=== PATIENT | female | born 1955 | race Caucasian/White ===

== ENCOUNTER → 2022-02-09 09:23 | Outpatient (BNVA) | payer MEDICARE, SELFPAY | PROVIDERS: Family Provider Nurse Practitioner; PCP Nurse Practitioner; Visit Provider Nurse Practitioner | DX: E11.9 Type 2 diabetes mellitus without complications (principal); I25.10 Atherosclerotic heart disease of native coronary artery without angina pectoris; E03.9 Hypothyroidism, unspecified; M06.9 Rheumatoid arthritis, unspecified | CPT/HCPCS: 80053; 83036; 84443; 85025 ==

== ENCOUNTER → 2022-04-24 09:10 | Outpatient (BNVA) | payer MEDICARE, SELFPAY | PROVIDERS: Family Provider Nurse Practitioner; PCP Nurse Practitioner; Visit Provider Anesthesiology Pain Medicine | DX: M47.816 Spondylosis without myelopathy or radiculopathy, lumbar region (principal); M51.16 Intervertebral disc disorders with radiculopathy, lumbar region; M79.605 Pain in left leg; M79.604 Pain in right leg; M25.522 Pain in left elbow; Z87.891 Personal history of nicotine dependence | CPT/HCPCS: 99204 ==

== ENCOUNTER 2022-04-25 01:00 | Outpatient (CLI) | payer MEDICARE, SELFPAY | END 2022-04-25 23:00 | disposition home or self-care (01) | LOC: RAD 05-09 10:14 | PROVIDERS: Family Provider Nurse Practitioner; PCP Nurse Practitioner; Visit Provider Anesthesiology Pain Medicine | DX: I25.10 Atherosclerotic heart disease of native coronary artery without angina pectoris (principal); E11.9 Type 2 diabetes mellitus without complications; Z87.891 Personal history of nicotine dependence; Z79.84 Long term (current) use of oral hypoglycemic drugs; R94.31 Abnormal electrocardiogram [ECG] [EKG] | CPT/HCPCS: 93005; 99204; 99214 ==

== ENCOUNTER → 2022-05-09 12:50 | Outpatient (BNVA) | payer MEDICARE, SELFPAY | PROVIDERS: Family Provider Nurse Practitioner; PCP Nurse Practitioner; Referring Provider Nurse Practitioner; Visit Provider Internal Medicine | DX: M06.9 Rheumatoid arthritis, unspecified (principal); R53.81 Other malaise; M54.9 Dorsalgia, unspecified; Z11.59 Encounter for screening for other viral diseases; Z11.1 Encounter for screening for respiratory tuberculosis; E11.9 Type 2 diabetes mellitus without complications; Z79.84 Long term (current) use of oral hypoglycemic drugs | CPT/HCPCS: 99204 ==

== ENCOUNTER → 2022-05-15 10:42 | Outpatient (BNVA) | payer MEDICARE, SELFPAY | PROVIDERS: Family Provider Nurse Practitioner; PCP Nurse Practitioner; Visit Provider Nurse Practitioner | DX: R68.89 Other general symptoms and signs (principal); R50.9 Fever, unspecified; B34.9 Viral infection, unspecified; Z20.822 Contact with and (suspected) exposure to COVID-19 | CPT/HCPCS: 87400; 87426 ==

== ENCOUNTER → 2022-06-28 11:12 | Outpatient (BNVA) | payer MEDICARE, SELFPAY | PROVIDERS: Family Provider Nurse Practitioner; PCP Nurse Practitioner; Visit Provider Nurse Practitioner | DX: E11.9 Type 2 diabetes mellitus without complications (principal) | CPT/HCPCS: 83036 ==

== ENCOUNTER 2022-08-30 12:19 | Outpatient (CLI) | payer MEDICARE, SELFPAY ==
[2022-08-30 13:27] LABS: Basophils % 0.4 %; Hematocrit 38.9 % (37.0-47.0); Hemoglobin 12.3 g/dL (11.5-15.3); Lymphocytes # 4.3 10^3/uL (0.8-4.8); Lymphocytes % 43.2 %; Mean Corpuscular HGB Conc 31.6 g/dL (30.0-36.0); Mean Corpuscular Hemoglobin 27.8 pg (28.0-34.0); Mean Corpuscular Volume 87.8 fl (81-99); Monocytes # 0.4 10^3/uL (0.2-0.9); Monocytes % 3.7 %; Neutrophils # 5.16 10^3/uL (1.8-7.7); Neutrophils % 52.3 %; Nucleated Red Blood Cells % 0 %; Platelet Count 263 10^3/cmm (130-400); Red Blood Count 4.43 10^6/uL (4.1-5.3); Red Cell Distribution Width 14.6 % (12.1-15.1); White Blood Count 9.9 10^3/uL (4.0-10.0)
[2022-08-30 13:34] LABS: Erythrocyte Sedimentation Rate 36 mm/hr (0-15)
[2022-08-30 13:43] LABS: Alanine Aminotransferase 16 U/L (0-33); Albumin Level 4.1 g/dL (3.5-5.2); Alkaline Phosphatase 68 U/L (35-105); Aspartate Amino Transferase 23 U/L (0-32); Blood Urea Nitrogen 23 mg/dL (8-23); C Reactive Protein 7.4 mg/L (0.0-4.9); Calcium 8.9 mg/dL (8.5-10.5); Carbon Dioxide 24 mmol/L (22-29); Chloride 96 mmol/L (98-107); Globulin 3.3 g/dL (1.3-4.6); Glucose 294 mg/dL (65-115); Osmolality Calculated 293 mOsm/kg (285-295); Sodium 134 mmol/L (136-145); Total Bilirubin 0.2 mg/dL (0.15-1.2); Total Protein 7.4 g/dL (6.6-8.7)
[2022-08-30 13:45] LABS: Anion Gap 18.7 (5-19); Potassium 4.7 mmol/L (3.5-5.1)
== END 2022-08-30 12:20 | disposition home or self-care (01) ==
PROVIDERS: PCP Nurse Practitioner; Visit Provider Internal Medicine
DX: M06.9 Rheumatoid arthritis, unspecified (principal); M19.90 Unspecified osteoarthritis, unspecified site; Z79.899 Other long term (current) drug therapy
CPT/HCPCS: 36415; 80053; 85025; 85651; 86140; 99213

== ENCOUNTER → 2022-09-12 15:11 | Outpatient (BNVA) | payer MEDICARE, SELFPAY | PROVIDERS: PCP Nurse Practitioner; Visit Provider Nurse Practitioner | DX: E11.9 Type 2 diabetes mellitus without complications (principal) | CPT/HCPCS: 83036 ==

== ENCOUNTER → 2022-11-20 12:06 | Outpatient (BNVA) | payer MEDICARE, SELFPAY | PROVIDERS: PCP Nurse Practitioner; Visit Provider Nurse Practitioner | DX: E11.9 Type 2 diabetes mellitus without complications (principal); H44.009 Unspecified purulent endophthalmitis, unspecified eye | CPT/HCPCS: 83036 ==

== ENCOUNTER → 2022-12-19 17:05 | Outpatient (BNVA) | payer MEDICARE, SELFPAY | PROVIDERS: PCP Nurse Practitioner; Visit Provider Internal Medicine | DX: R53.81 Other malaise (principal); M06.9 Rheumatoid arthritis, unspecified | CPT/HCPCS: 80053; 83520; 85025; 85651; 86140; 99214 ==

== ENCOUNTER → 2023-04-25 15:03 | Outpatient (BNVA) | payer MEDICARE, SELFPAY | PROVIDERS: PCP Nurse Practitioner; Visit Provider Nurse Practitioner Family | DX: Z87.81 Personal history of (healed) traumatic fracture (principal); M25.522 Pain in left elbow; E03.9 Hypothyroidism, unspecified; E07.9 Disorder of thyroid, unspecified; E11.9 Type 2 diabetes mellitus without complications; E78.2 Mixed hyperlipidemia; F41.9 Anxiety disorder, unspecified; I10 Essential (primary) hypertension; E55.9 Vitamin D deficiency, unspecified | CPT/HCPCS: 73080; 80061; 81003; 82306; 82607; 82746; 83036; 83721; 83735; 84100; 84439; 84443; 84481; 85025; 87086 ==

== ENCOUNTER 2024-05-27 05:31 | Inpatient (IN) | payer MEDICARE, SELFPAY ==
[2024-05-27] VITALS (39 sets, daily range): BP systolic 87–161; BP diastolic 54–93; PULSE 74–89; RESP 12–25; TEMP 36.6; O2SAT 89–100
[2024-05-27] MEDS: dextrose 5%-sod chloride 0.9% 1,000 ML 75 ML IV (06:16)
--- NOTE | 2024-05-27 06:17 | XRR_ITS ---
PROCEDURE INFORMATION: Exam: XR Right Tibia and Fibula Exam date and time: 05/27/2024 6:53 AM Age: 68 years old Clinical indication: Condition or disease; Other: Heel ulcer TECHNIQUE: Imaging protocol: Radiologic exam of the right tibia and fibula. Views: 2 views. COMPARISON: No relevant prior studies available. FINDINGS: Bones/joints: Mild arthritis right knee. Small enthesophyte from the anterior right tibial spine. Mild arthritis right ankle. Incidentally noted is a moderate right inferior calcaneal spur and a moderate right posterior calcaneal enthesophyte. Otherwise, unremarkable. Soft tissues: Otherwise, unremarkable soft tissues. Vasculature: Large amount of arterial calcification. XR/XR tibia fibula RT 2V [id number] IMPRESSION: No acute findings.
--- NOTE | 2024-05-27 06:17 | XRR_ITS ---
PROCEDURE INFORMATION: Exam: XR Left Tibia and Fibula Exam date and time: 05/27/2024 6:56 AM Age: 68 years old Clinical indication: Condition or disease; Other: Heel ulcer TECHNIQUE: Imaging protocol: Radiologic exam of the left tibia and fibula. Views: 2 views. COMPARISON: No relevant prior studies available. FINDINGS: Bones/joints: Mild arthritis left knee. Severe arthritis left ankle. Incidentally noted are large inferior left calcaneal spur and left posterior calcaneal enthesophyte. Otherwise, unremarkable. Soft tissues: Otherwise, unremarkable. Vasculature: Large amount of arterial calcification. XR/XR tibia fibula LT 2V [id number] IMPRESSION: No acute findings.
--- NOTE | 2024-05-27 06:17 | PM.HP ---
Providers/Chief Complaint Admitting Physician: Bonilla Ivan MD Primary Care Provider: Lety Banks APN Chief Complaint: Hypoglycemia History of Present Illness Billie Govea is a 68 year old female with a past medical history of CVA with residual left-sided weakness, is a Antonino lift, she tells me that she is lost functionality of both legs, has urinary retention, history of recurrent UTIs, reported stool incontinence, she was at [facility] for rehab, but left AGAINST MEDICAL ADVICE yesterday to the care of her son, has type 2 diabetes mellitus, hypertension hyperlipidemia CAD status post 4 stents, atrial fibrillation, hyperlipidemia, hypothyroidism, who presents to [facility] as a transfer from [facility] for concerns for hypoglycemia. Currently patient is alert oriented x 3, following all commands, patient tells me that back in July 2023, she had all large stroke which resulted in her being debilitated, she cannot ambulate without assistance, she has troubles with balance she is lost significant functionality of both lower legs, but significant portion of her weakness was on the left side, with urinary retention issues, issues with bowel incontinence. She has been at [facility] for rehab, however she was not being treated appropriately she tells me, she did not like the care she was receiving so she left AGAINST MEDICAL ADVICE. She was not sent home with any paperwork she tells me nor it with any medications. When she got home she used her home Lantus and gave herself what ever was remaining in the pen that was dosed at as she believes at 70 units, she is not sure how much insulin she was receiving at the rehab facility, she became unresponsive, son called 911, paramedics arrived blood sugar 39, she was given D10 by the time she arrived to the emergency room her blood sugar down to 17, at [facility] she was found to have hypoglycemia, hypokalemia, was given D50 bolus, a total of 3 A, started on D5 normal saline, was given 40 mill colons of potassium, potassium improved to 3.4, blood sugars have improved into the low high 80s to 90s, she was back to alert oriented x 3 she was also found to be hypothermic placed on Young hugger, she feels like she has a UTI as she feels lower pelvic pressure, her white blood cell count is 14.4, hemoglobin 9.5, creatinine 0.57, bicarb is 24, anion gap 13, patient adamantly denies any suicidal ideation, denies any homicidal ideation, denies suicide attempt Review of Systems Const: Denies: fever(s) Card: Denies: chest pain Resp: Denies: dyspnea GI: Denies: abdominal pain Neuro: Reports: weakness in extremities; Denies: headache(s) Medications/Allergies Home Medications Medication Instructions Recorded Confirmed Last Taken Type upadacitinib 15 mg tablet,extended 15 mg PO DAILY 02/09/22 08/20/23 Unknown History release 24 hr (Rinvoq) pantoprazole 40 mg tablet,delayed 40 mg PO DAILY #30 tabs 02/13/22 08/20/23 Unknown Rx release tizanidine 4 mg tablet 4 mg PO BID PRN muscle spasticity 04/24/22 08/20/23 Unknown Rx #60 tabs albuterol sulfate 90 mcg/actuation 2 puff inhalation Q6H PRN 05/15/22 08/20/23 Unknown Rx aerosol inhaler (Ventolin HFA) shortness of breath or wheezing #8.5 grams losartan 50 mg tablet See Rx Instructions .Route 06/05/22 08/20/23 Unknown Rx .COMPLEX #30 tabs hydrocodone 10 mg-acetaminophen 1 tab PO Q8H PRN 06/28/22 08/20/23 Unknown History 325 mg tablet pregabalin 100 mg capsule ea PO 06/28/22 08/20/23 Unknown History furosemide 40 mg tablet 40 mg PO DAILY #30 tabs 08/21/22 08/20/23 Unknown Rx albuterol sulfate 2.5 mg/3 mL 2.5 mg (3 mL) inhalation QID PRN 11/08/22 08/20/23 Unknown Rx (0.083 %) solution for nebulization shortness of breath or wheezing #90 mL levothyroxine 75 mcg capsule 75 mcg PO DAILY #90 caps 11/12/22 08/20/23 Unknown Rx tobramycin 0.3 %-dexamethasone 0.1 1 drp ophthalmic (eye) TID 7 days 11/20/22 08/20/23 Unknown Rx % eye drops,suspension #5 mL escitalopram oxalate 10 mg tablet 10 mg PO DAILY 04/25/23 08/20/23 Unknown History atorvastatin 40 mg tablet (Lipitor) 40 mg PO DAILY #30 tabs 05/06/23 08/20/23 Unknown Rx levothyroxine 88 mcg capsule 88 mcg PO DAILY 30 days #30 caps 05/06/23 08/20/23 Unknown Rx diltiazem HCl 180 mg See Rx Instructions .Route 06/18/23 08/20/23 Unknown Rx capsule,extended release 24 hr, .COMPLEX #30 caps controlled insulin NPH isoph U-100 human 100 See Rx Instructions SUBCUT DAILY 08/20/23 08/20/23 Unknown Rx unit/mL (3 mL) subcutaneous pen #15 mL (Humulin N NPH U-100 Insulin KwikPen) insulin detemir U-100 100 unit/mL 60 unit (0.6 mL) .Route .COMPLEX 08/20/23 08/20/23 Unknown Rx (3 mL) subcutaneous pen (Levemir 30 days #18 mL FlexPen) pen needle, diabetic 32 gauge x #120 ea 08/20/23 08/20/23 Unknown Rx /32 (BD Jocelyn 2nd Gen Pen Needle) apixaban 5 mg tablet (Eliquis) See Rx Instructions .Route 08/23/23 Unknown Rx .COMPLEX #30 tabs prednisone 5 mg tablet See Rx Instructions .Route 10/15/23 Unknown Rx .COMPLEX #60 tabs ropinirole 0.5 mg tablet See Rx Instructions .Route 05/26/24 Unknown Rx .COMPLEX #60 tabs Allergies Allergy/AdvReac Type Severity Reaction Status Date / Time topiramate Allergy Severe ADR-Halluci Verified 08/20/23 13:27 nating Opioids - Morphine Analogues Allergy Intermediate Unresponsiv Verified 08/20/23 13:27 e PFSH Acute PFSH: Medical History Stroke Urinary tract infection Mixed hyperlipidemia Hypothyroidism, unspecified High blood pressure Anxiety Thyroid disease Pain in left elbow History of fracture of arm Rash Debility Rheumatoid arthritis Family History Father Hypertension Brother Heart attack Sister Heart attack Brother Heart attack Mother Lung cancer Social History Smoking and tobacco/nicotine status: former use of tobacco/nicotine Alcohol intake: former Substance/Drug Use: never Vitals/I&O/Wt Last Vital Signs Temp 97.8 F 05/27/24 06:00 Pulse 76 05/27/24 06:00 Resp 19 H 05/27/24 06:00 BP 87/54 05/27/24 06:00 Pulse Ox 99 05/27/24 05:45 O2 Del Method Room Air 05/27/24 06:00 Physical Exam Const: COMMON NORMALS: no acute distress and patient oriented x3 HENMT: COMMON NORMALS: normocephalic HEAD & SCALP: normocephalic Eye: COMMON NORMALS: Equal, round and reactive pupils present OTHER: Left eye corneal clouding, cataract Neck/C-Spine: COMMON NORMALS: no JVD Resp: COMMON NORMALS: normal respiratory effort, No retractions, No use of accessory muscles and clear to auscultation bilaterally AUSCULTATION: clear to auscultation bilaterally Cardio: COMMON NORMALS: regular rate, regular rhythm, S1 normal heart sound present and S2 normal heart sound present RATE: regular rate RHYTHM: regular rhythm HEART SOUNDS: S1 normal heart sound present and S2 normal heart sound present GI: COMMON NORMALS: Normal to inspection, nondistended, normoactive bowel sounds present, Soft to palpation and non-tender Extremity: COMMON NORMALS: no pedal edema Neuro: COMMON NORMALS: patient oriented x3 and CN's II-XII intact bilaterally OTHER: Bilateral lower extremity weakness, Psych: COMMON NORMALS: mental status grossly normal Skin: OTHER: Right heel black eschar with surrounding erythema 3 x 3 cm Left heel black eschar with surrounding erythema 3 x 3 cm, with open diabetic ulcer measuring 1 x 1 cm along medial malleolus Sacral decubitus ulcer present 1 x 2 cm A&P Assessment and plan (1) Hypoglycemia: (2) Hypothermia: (3) CAD (coronary artery disease): (4) Mixed hyperlipidemia: (5) Diabetes mellitus: Qualifiers: Diabetes mellitus type: type 2 Diabetes mellitus rn long term care insulin use: with long-term use Diabetes mellitus complication status: with hyperglycemia Qualified Code(s): E11.65 - Type 2 diabetes mellitus with hyperglycemia; Z79.4 - senior care (current) use of insulin (6) Hypothyroidism, unspecified: Qualifiers: Hypothyroidism type: acquired Qualified Code(s): E03.9 - Hypothyroidism, unspecified (7) Urinary tract infection: (8) Diabetic ulcer of foot associated with diabetes mellitus due to underlying condition, limited to breakdown of skin: (9) Sacral decubitus ulcer: (10) Cellulitis of heel: Plan Hypoglycemia -Secondary to Lantus overdose, unintentional -Blood sugar improved to the 120s -Continue D5 normal saline at 70 cc an hour -Check blood sugars q1 hourly -Hypoglycemia protocol Hypothermia # Resolved Hypokalemia -Status post repletion at [facility] -Recheck CMP Concerns for UTI, obtain UA Type 2 diabetes mellitus, -Will have to call [facility] for dosing of medications History of CVA -Antonino lift dependent -Has lost functionality both legs -Residual left-sided deficits Bilateral heel diabetic ulcers, with black necrotic eschar -Surrounding erythema -Findings concerning for cellulitis, start vancomycin, Zosyn -X-ray of bilateral foot -ESR, CRP, Pro-Seth, x-ray -Consult podiatry in the morning Sacral decubitus ulcer -Continue repositioning Atrial fibrillation CODE STATUS, DNR/DNI, confirmed with patient multiple times SCDs for DVT prophylaxis, patient is unsure when the medication she took last night, if it was Eliquis or not We will have to discuss with case management as patient would like home health care Patient left AMA from [facility] rehab, we will have to call rehab for patient's medication dosing, medication reconciliation, as there is discrepancies on dosing of medications Attestations Medical Necessity Statement*: Patient requires hospitalization, inpatient, greater than 2 midnights, for hypoglycemia, hypothermia, hypokalemia, bilateral diabetic heel ulcers requiring IV antibiotics with findings concerning for with cellulitis Diagnoses Hypoglycemia E16.2 Hypothermia T68.XXXA CAD (coronary artery disease) I25.10 Mixed hyperlipidemia E78.2 Type 2 diabetes mellitus with hyperglycemia, with long-term current use of insulin E11.65; Z79.4 Diabetes mellitus type: type 2 Diabetes mellitus long-term insulin use: with long-term use Diabetes mellitus complication status: with hyperglycemia Acquired hypothyroidism E03.9 Hypothyroidism type: acquired Urinary tract infection N39.0 Diabetic ulcer of foot associated with diabetes mellitus due to underlying condition, limited to breakdown of skin E08.621; L97.501 Sacral decubitus ulcer L89.159 Cellulitis of heel L03.119
[2024-05-27] MEDS: pantoprazole 40 mg SDV IVP (06:18)
--- NOTE | 2024-05-27 06:26 | XRR_ITS ---
PROCEDURE INFORMATION: Exam: XR Chest Exam date and time: 05/27/2024 6:48 AM Age: 68 years old Clinical indication: Shortness of breath; Additional info: SOB TECHNIQUE: Imaging protocol: Radiologic exam of the chest. Views: 1 view. COMPARISON: No relevant prior studies available. FINDINGS: Lungs: Mild, diffuse bilateral pulmonary edema and/or pneumonitis. Pulmonary vascular congestion. Otherwise, unremarkable. Pleural spaces: Unremarkable. No pleural effusion. No pneumothorax. Heart/Mediastinum: Mild cardiomegaly. Diaphragm: Mild elevation of the right hemidiaphragm. Bones/joints: Unremarkable. XR/XR chest 1V portable [id number] IMPRESSION: 1. Mild, diffuse bilateral pulmonary edema and/or pneumonitis. 2. Pulmonary vascular congestion. 3. Mild elevation of the right hemidiaphragm. 4. Mild cardiomegaly.
[2024-05-27] MEDS: HYDROcodone-acetaminophen 10-325 mg Tablet 1 TAB PO (06:30)
[2024-05-27 07:08] LABS: Glucose Point of Care 110 mg/dL (70-110)
--- NOTE | 2024-05-27 07:24 | ECG_ITS ---
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 Measurements Intervals [place] Rate: 85 P: 243 MI: 135 QRS: 15 QRSD: 90 T: 66 QT: 370 QTc: 441 Interpretive Statements JUNCTIONAL RHYTHM NONSPECIFIC T-WAVE ABNORMALITY ABNORMAL RHYTHM ECG No previous ECG available for comparison Electronically Signed On 05-27-2024 21:36:39 TOUR CONSULTANT by Jeff Liang M.D. [id number]
--- NOTE | 2024-05-27 08:11 | ECG_ITS ---
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 Measurements Intervals [place] Rate: 85 P: 250 VT: 122 QRS: 32 QRSD: 109 T: 78 QT: 385 QTc: 459 Interpretive Statements Possible ectopic atrial rhythm NONSPECIFIC T-WAVE ABNORMALITY ABNORMAL RHYTHM ECG Compared to ECG 05/27/2024 07:24:41 No significant changes Electronically Signed On 05-27-2024 21:16:22 MICROBIAL SPECIALIST by Jeff Liang M.D. [email or web address]
[2024-05-27 08:12] LABS: Glucose Point of Care 110 mg/dL (70-110)
[2024-05-27 08:12] LABS: Glucose Point of Care 114 mg/dL (70-110)
[2024-05-27 08:18] LABS: Bilirubin Urine Negative (Negative); Blood Urine Negative (Negative); Glucose Urine UA Negative (Normal); Ketones Urine Negative (Negative); Leukocyte Esterase Urine Trace (Negative); Nitrate Urine Positive (Negative); Protein Urine Trace (Negative); Specific Gravity, Urine 1.009 (1.005-1.030); Urine Appearance Cloudy (CLEAR); Urine Color Yellow (Yellow); pH Urine 7.5 (5-7)
[2024-05-27 08:18] LABS: Basophils # 0.1 10^3/uL (0.0-0.1); Basophils % 0.8 %; Eosinophils # 0.2 10^3/uL (0.0-0.8); Eosinophils % 1.6 %; Hematocrit 28.4 % (36-47); Lymphocytes # 3.2 10^3/uL (0.8-4.8); Lymphocytes % 31.6 %; Mean Corpuscular HGB Conc 29.9 g/dL (30-55); Mean Corpuscular Hemoglobin 26.4 pg (27-33); Mean Corpuscular Volume 88.2 fl (85-98); Mean Platelet Volume 10.6 fL (7.4-10.4); Monocytes # 0.5 10^3/uL (0.2-0.9); Monocytes % 5.4 %; Neutrophils # 6.05 10^3/uL (1.8-7.7); Neutrophils % 60.4 %; Nucleated Red Blood Cells % 0 %; Platelet Count 354 10^3/cmm (157-399); Red Blood Count 3.22 10^6/uL (3.85-5.65); Red Cell Distribution Width 19.8 % (12.1-15.1); White Blood Count 10.01 10^3/uL (3.29-11.43)
[2024-05-27] MEDS: piperacillin-tazobactam 3.375 GM in sodium chloride 0.9% (plus) 50 ML IV ×3 (08:19→22:06)
[2024-05-27 08:21] LABS: Add Urine Microscopic? YES; Bacteria Urine 4+ /hpf; Hyaline Casts Urine 4.11 /lpf; RBC Urine 0-2 /hpf (0-2); Squamous Epithelial Cell Urine 0-5 /hpf (0-5); WBC Urine 21-50 /hpf (0-5)
[2024-05-27 08:23] LABS: Glucose Point of Care 102 mg/dL (70-110)
[2024-05-27 08:35] LABS: Add Urine Culture? Yes
[2024-05-27 08:37] LABS: Erythrocyte Sedimentation Rate 53 mm/hr (0-15)
[2024-05-27 08:38] LABS: Troponin(5th) Baseline 83 ng/L (0-10)
[2024-05-27 08:50] LABS: Estmated Average Glucose 128; Hemoglobin A1C 6.1 % (4.0-6.0)
--- NOTE | 2024-05-27 09:01 | USCV_ITS ---
Billie Govea Age: 68 Gender: F : 1955 Exam Date: 05/27/2024 09:48 Ordering Phys: Irineo Jhaveri MD Technologist: [place] [facility] [place]: BP: 135 / 67 HR: 84 Rhythm: Sinus Technical Quality: Adequate MEASUREMENTS (Male / Female) Normal Values 2D ECHO LV Diastolic Diameter PLAX 4.4 cm 4.2 - 5.9 / 3.9 - 5.3 cm IVS Diastolic Thickness 1.3 cm 0.6 - 1.0 / 0.6 - 0.9 cm IVS Systolic Thickness 2.2 cm LVPW Diastolic Thickness 1.7 cm 0.6 - 1.0 / 0.6 - 0.9 cm LVPW Systolic Thickness 2.2 cm LVOT Diameter 2.0 cm LV Ejection Fraction 2D Teich 62.6 % LV Ejection Fraction MOD 4C 58.0 % LV Ejection Fraction MOD 2C 62.1 % LV Ejection Fraction 2C AL 63.6 % LA Diameter 4.2 cm RA Systolic Volume 4C AL 83.8 ml RA Systolic Volume 4C MOD 79.3 ml Aorta at Sinotubular Diameter 3.9 cm IVC Diameter 2.5 cm M-MODE LA Ao Ratio MM 1.1 AV Cusp Separation MM 2.0 cm DOPPLER AV Peak Velocity 176.3 cm/s LVOT Peak Velocity 91.0 cm/s AV Area Cont Eq vti 1.8 cm squared AV Area Cont Eq pk 1.7 cm squared MV Peak Velocity 139.0 cm/s MV Area PHT 2.8 cm squared Mitral E to A Ratio 1.4 TV Peak Velocity 272.5 cm/s TR Peak Velocity 334.0 cm/s TR Peak Gradient 44.6 mmHg TV Peak E Velocity 146.0 cm/s PV Peak Velocity 98.0 cm/s FINDINGS Left Ventricle Normal left ventricular size and systolic function, EF 60%.. No regional wall motion abnormalities. Right Ventricle The right ventricle is normal in size and function. Right Atrium Moderately increased right atrial size. Left Atrium Moderately increased left atrial size. Mitral Valve Moderate mitral annular calcification. Aortic Valve Thickened aortic valve. Tricuspid Valve Trace tricuspid valve regurgitation. Pulmonic Valve Pulmonic valve not well visualized. Pericardium Normal pericardium without effusion. Aorta Normal ascending aorta dimension. IVC Inferior vena cava not visualized. CONCLUSIONS Normal left ventricular size and systolic function, EF 60%.. No regional wall motion abnormalities. Moderate biatrial enlargementModerate mitral annular calcification. Thickened aortic valve. Trace tricuspid valve regurgitation. Estimated pulmonary artery peak systolic pressure 48 mmHg-could be misleading because of poor Doppler signals There is no pericardial effusion. There are no intracardiac masses. Technically difficult study because of poor apical windows Dr Jeff Liang MD FAC (Electronically Signed) Final Date: 27 May 2024 22:15 S
[2024-05-27 09:02] LABS: Free T4 Free Thyroxine 1.08 ng/dL (0.82-1.77); Procalcitonin 0.14 ng/mL (0-0.5); T3 Free 1.8 PG/ML (2.0-4.4); Thyroid Stimulating Hormone 3.97 uIU/mL (0.27-4.20)
--- NOTE | 2024-05-27 09:14 | PM.PN ---
Subjective Subjective: Admitted overnight. Patient today morning examination awake and alert. Complaining of pain in her back. States he usually takes Valium for pain. Denies any nausea counting, headache. Vitals/I&O/Wt Last Vital Signs Temp 97.8 F 05/27/24 08:18 Pulse 86 05/27/24 08:00 Resp 21 H 05/27/24 08:00 BP 137/93 05/27/24 07:45 Pulse Ox 98 05/27/24 08:00 O2 Del Method Room Air 05/27/24 06:00 05/26/24 05/27/24 05/27/24 22:59 06:59 14:59 Intake Total 385 / 385 Balance 385 / 385 Weight last 48 hrs Weight 91.807 kg Physical Exam Const: COMMON NORMALS: no acute distress and patient oriented x3 HENMT: COMMON NORMALS: normocephalic HEAD & SCALP: normocephalic Eye: COMMON NORMALS: Equal, round and reactive pupils present PUPIL: Yes Equal, round and reactive pupils present OTHER: Left eye corneal clouding, cataract Neck/C-Spine: COMMON NORMALS: no JVD Resp: COMMON NORMALS: normal respiratory effort, No retractions, No use of accessory muscles and clear to auscultation bilaterally AUSCULTATION: clear to auscultation bilaterally Cardio: COMMON NORMALS: no JVD, regular rate, regular rhythm, S1 normal heart sound present and S2 normal heart sound present RATE: regular rate RHYTHM: regular rhythm HEART SOUNDS: S1 normal heart sound present and S2 normal heart sound present GI: COMMON NORMALS: Normal to inspection, nondistended, normoactive bowel sounds present, Soft to palpation and non-tender PALPATION: Yes Soft to palpation Extremity: COMMON NORMALS: no pedal edema Neuro: COMMON NORMALS: patient oriented x3 and CN's II-XII intact bilaterally OTHER: Bilateral lower extremity weakness, Psych: COMMON NORMALS: mental status grossly normal Skin: OTHER: Urinary Catheter Management: Tong: Cath Placed During This Visit: yes Urinary Catheter Date of Insertion: 05/27/24 Urinary Catheter Time of Insertion: 08:07 Data 05/27/24 07:55 05/27/24 07:55 Micro: Microbiology 05/27/24 07:55 Blood Culture - Preliminary Blood SPECIMEN COLLECTED 05/27/24 08:03 Blood Culture - Preliminary Blood SPECIMEN COLLECTED A&P Assessment and plan (1) Hypoglycemia: (2) Diabetes mellitus: Qualifiers: Diabetes mellitus type: type 2 Diabetes mellitus penitentiary insulin use: with intermediate frame tender use Diabetes mellitus complication status: with hyperglycemia Qualified Code(s): E11.65 - Type 2 diabetes mellitus with hyperglycemia; 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 Continue with D5 NS at 75 cc/h. Monitor blood sugars every 2 hour. Switch to regular diet. If blood sugars remain stable we will plan to discontinue IV fluids within next 24 hours. UTI: Appreciate UA. Follow-up urine culture, blood culture. Add bacterial antigen. For now continue with IV Zosyn. Bilateral heel ulcers with black eschar: Will consult podiatry for further recommendations. ESR CRP mildly elevated. CT of the heel to rule out underlying collection. Continue with Zosyn as above. Continue with vancomycin. Check MRSA swab. If negative will discontinue vancomycin. Type 2 diabetes mellitus: Currently having hypoglycemia. Appreciate A1c. Hold off on antidiabetic medications for now. Sacral decubitus ulcer: Frequent repositioning. Will request medical records from the rehab so that can start on medications at home dose. Back pain: Patient states chronic. States she recently had a fall. At baseline she seems to be bedbound for stroke. Continue with IV Dilaudid 0.4 every 6 hours as needed. Hold off on Valium until confirmed from shelter. [place] 5 mg every [address] lumbar spine. Continue care at ICU. Will restart home medications when list available. CODE STATUS, DNR/DNI, confirmed with patient multiple times Eliquis for DVT prophylaxis Protonix for PUD prophylaxis. Attestations Medical Necessity Statement*: Requires further hospitalization for management of hypoglycemia in setting of accidental overdose of Lantus, bilateral heel ulcer with eschar, UTI Diagnoses Hypoglycemia E16.2 Type 2 diabetes mellitus with hyperglycemia, with long-term current use of insulin E11.65; Z79.4 Diabetes mellitus type: type 2 Diabetes mellitus intermediate frame tender insulin use: with intermediate frame tender use Diabetes mellitus complication status: with hyperglycemia Acquired hypothyroidism E03.9 Hypothyroidism type: acquired Urinary tract infection N39.0 Diabetic ulcer of foot associated with diabetes mellitus due to underlying condition, limited to breakdown of skin E08.621; L97.501 Sacral decubitus ulcer L89.159 Cellulitis of heel L03.119 CAD (coronary artery disease) I25.10 Mixed hyperlipidemia E78.2 Hypothermia T68.XXXA
[2024-05-27 09:16] LABS: Alanine Aminotransferase < 5 U/L (0-33); Alkaline Phosphatase 93 U/L (35-105); Anion Gap 15.4 (5-19); Aspartate Amino Transferase 10 U/L (0-32); Blood Urea Nitrogen 13 mg/dL (8-23); C Reactive Protein 57.6 mg/L (0.0-4.9); Calcium 8.7 mg/dL (8.5-10.5); Carbon Dioxide 24 mmol/L (22-29); Chloride 102 mmol/L (98-107); Chol HDL Ratio 2.43 mg/dL (0.0-4.40); Cholesterol 136 mg/dL (0-200); Creatine Phosphokinase 36 U/L (26-192); Creatinine Clr Calc Pharmacy 74.4347; Globulin 3.8 g/dL (1.3-4.6); Glucose 110 mg/dL (65-115); HDL Cholesterol 56 mg/dL (60-100); LDL Cholesterol Calculated 61 mg/dL (50-129); LDL HDL Ratio 1.09 RATIO (0.00-3.22); Magnesium 1.5 mg/dL (1.7-2.3); Osmolality Calculated 287 mOsm/kg (285-295); Phosphorus 3.9 mg/dL (2.5-4.5); Potassium 3.4 mmol/L (3.5-5.1); Sodium 138 mmol/L (136-145); Total Bilirubin 0.4 mg/dL (0.15-1.2); Total Protein 6.8 g/dL (6.6-8.7); Triglycerides 93 mg/dL (0-150)
[2024-05-27 09:19] LABS: Glucose Point of Care 168 mg/dL (70-110)
--- NOTE | 2024-05-27 09:19 | CTR_ITS ---
PROCEDURE INFORMATION: Exam: CT Left Lower Extremity, Foot Exam date and time: 05/27/2024 2:58 PM Age: 68 years old Clinical indication: Condition or disease; Other: Heal ulcer TECHNIQUE: Imaging protocol: CT of the left lower extremity without contrast was performed. Exam focused on the foot. Radiation optimization: All CT scans at this facility use at least one of these dose optimization techniques: automated exposure control; mA and/or kV adjustment per patient size (includes targeted exams where dose is matched to clinical indication); or iterative reconstruction. COMPARISON: CR XR tibia fibula LT 2V [id number] 05/27/2024 6:56 AM RADIATION DOSE METRICS: Total DLP (mGy-cm): 318.27 FINDINGS: Bones/joints: Diffuse heterogenous appearance of the bone especially about the mid and hindfoot osseous structures. Linear lucency through the medial cuneiform which may represent subtle nondisplaced fracture versus nutrient vessel. Best seen on image 27 of series 16. No definite additional acute displaced fractures. Plantar calcaneal dorsal spurring. No malalignment. Soft tissues: Soft tissue swelling involving essentially entire fluid most prominent about the mid hindfoot. Please correlate with physical exam for definite area ulceration, however there appears to be the soft tissue irregularity the soft tissues heel Vasculature: Vascular calcifications. Other findings: No focal drainable abscess. CT/CT foot LT wo con* [id number] IMPRESSION: 1. Please correlate physical exam for area soft tissue ulceration, however there does appear to be some cutaneous irregularity at the heel. 2. Diffuse soft tissue swelling of the foot without focal drainable abscess. This may relate to cellulitic changes. 3. Diffuse heterogenous appearance of the bone marrow most prominent at the mid and hindfoot which may impart metabolic disease versus chronic osteomyelitis versus degenerative changes.
--- NOTE | 2024-05-27 09:19 | CTR_ITS ---
PROCEDURE INFORMATION: Exam: CT Right Lower Extremity, Foot Exam date and time: 05/27/2024 2:58 PM Age: 68 years old Clinical indication: Condition or disease; Other: Heal ulcer TECHNIQUE: Imaging protocol: CT of the right lower extremity without contrast was performed. Exam focused on the foot. Radiation optimization: All CT scans at this facility use at least one of these dose optimization techniques: automated exposure control; mA and/or kV adjustment per patient size (includes targeted exams where dose is matched to clinical indication); or iterative reconstruction. COMPARISON: CR XR tibia fibula RT 2V [id number] 05/27/2024 6:53 AM RADIATION DOSE METRICS: Total DLP (mGy-cm): 318.27 FINDINGS: Bones/joints: Diffuse heterogenous appearance of the bone marrow mainly at the forefoot and midfoot. There area of cortical dehiscence involving the cuboid seen on image 31 of series 14 and image 48 of series 12 which may be related to acute on chronic osteomyelitis. Midfoot and hindfoot arthrosis. Plantar calcaneal spurring. Soft tissues: Diffuse soft tissue swelling without focal drainable abscess. Cutaneous irregularity at the heel which may be related to ulcer and will need correlation with physical examination. Vasculature: Vascular calcifications. CT/CT foot RT wo con* [id number] IMPRESSION: 1. Area of cortical irregularity involving the lateral aspect of the cuboid bone which may relate to underlying fracture versus acute on chronic osteomyelitis changes. 2. Additional diffuse heterogenous changes of the bone marrow of the mid and hindfoot which may be related to degenerative changes versus chronic osteomyelitis versus metabolic disease. 3. Diffuse soft tissue swelling of the foot without focal drainable abscess. This may relate to overlying cellulitic changes. 4. Cutaneous irregularity at the heel, correlate with physical exam for ulcer.
[2024-05-27 09:33] LABS: Iron 28 ug/dL (37-145); Percent Saturation 15.2 % (20-50); Total Iron Binding Capacity 184 mcg/dl; Unsaturated Iron Binding 156 ug/dL (112-347)
[2024-05-27 09:50] LABS: Vitamin B12 290 pg/mL (232-1245)
--- NOTE | 2024-05-27 09:51 | PC.PHAR ---
Addendum entered by Judith Campos 05/27/24 10:57: Pts' bag of medications does not [facility]. Pt has an rx bottle of Lisinopril 20mg daily last filled 05/26/24 30ds and Lantus solostar pen last filled 03/11/24 which are NOT on her med list from the prison. They say she did leave AMA and think she compiled a few meds she had at home and is using them so she does not have to go back. [facility] med list is more correct than what pt says she is taking. Original Note: We hve pt med list and have gone through home medications in the room. Went over medications with pt and have faxed [facility] [phone]. Pt and facility state she left AMA but they will fax their current med list.
[2024-05-27] MEDS: HYDROcodone-acetaminophen 5-325 mg Tablet 1 TAB PO ×2 (09:54→18:10)
[2024-05-27] MEDS: vancomycin 1,500 MG/300 ML PIGGYBACK 200 MG IV (09:55)
[2024-05-27 10:15] LABS: Glucose Point of Care 227 mg/dL (70-110)
[2024-05-27 11:04] LABS: Glucose Point of Care 179 mg/dL (70-110)
[2024-05-27] MEDS: escitalopram 10 mg Tablet 15 MG PO (12:12)
[2024-05-27] MEDS: mirtazapine 15 mg Tablet 7.5 MG PO (12:12)
--- NOTE | 2024-05-27 12:16 | CTR_ITS ---
PROCEDURE INFORMATION: Exam: CT Lumbar Spine Without Contrast Exam date and time: 05/27/2024 3:03 PM Age: 68 years old Clinical indication: Injury or trauma; Fall; Blunt trauma (contusions or hematomas); Additional info: Back pain post fall TECHNIQUE: Imaging protocol: Computed tomography of the lumbar spine without contrast. Radiation optimization: All CT scans at this facility use at least one of these dose optimization techniques: automated exposure control; mA and/or kV adjustment per patient size (includes targeted exams where dose is matched to clinical indication); or iterative reconstruction. COMPARISON: No relevant prior studies available. RADIATION DOSE METRICS: Total DLP (mGy-cm): 970.3 FINDINGS: Bones/joints: No fracture. Mild scoliosis convex to the left. 5 mm left lateral subluxation of L3 on L4. Severe L3-L4 and L4-L5 degenerative disc disease. Minimal or mild degenerative disc disease at all other levels. Mild bilateral facet osteoarthritis at the L4-L5 level. Moderate bilateral facet osteoarthritis at the L5-S1 level. Large chronic left paracentral disc herniation at the L4-L5 level. Much smaller chronic posterior disc herniations at the L2-L3 and L3-L4 levels. No obvious acute disc herniation, but evaluation for such is quite limited on a noncontrast CT. Diffuse disc bulge at most levels. Mild spinal stenosis at the L1-L2 level and L2-L3 level. Severe spinal stenosis at the L 3-4 and L4-L5 levels. Mild neural foraminal narrowing on the left at the L3-L4 level. Moderate neural foraminal narrowing on the right at the L3-L4 level. Moderate to severe bilateral neural foraminal narrowing at the L4-L5 level. Mild-moderate neural foraminal narrowing on the left at the L5-S1 level. Otherwise, unremarkable. Pleural spaces: Tiny left pleural effusion. Adrenal glands: 1.5 cm left adrenal angiomyolipoma. Kidneys and ureters: Small nonobstructing renal calculi bilaterally. Prominent left ureter. Question left obstructive uropathy at the level of the distal left ureter off the field of view. Possible left urinary tract infection. Correlate clinically. Vasculature: Large amount of arterial calcification. Soft tissues: Otherwise, unremarkable soft tissues. CT/CT lumbar spine wo con* [id number] IMPRESSION: 1. No acute lumbar spine findings. 2. Prominent left ureter. Question left obstructive uropathy at the level of the distal left ureter off the field of view. Possible left urinary tract infection. Correlate clinically. 3. Additional details as above.
--- NOTE | 2024-05-27 12:26 | ECG_ITS ---
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 Measurements Intervals [place] Rate: 87 P: 224 AL: 114 QRS: 43 QRSD: 88 T: 66 QT: 383 QTc: 461 Interpretive Statements possible ectopic atrial rhythm. 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 [email or web address]
[2024-05-27] MEDS: HYDROmorphone 1 mg/mL INJ 1 mL 0.4 MG IVP ×2 (12:35→20:55)
[2024-05-27 12:51] LABS: MRSA PCR OZH (swab) MRSA Detected (Not Detecte)
[2024-05-27 13:12] LABS: Glucose Point of Care 160 mg/dL (70-110)
[2024-05-27 14:43] LABS: Troponin 5 6HR 83.61 ng/L (0-10); Troponin 5 6HR Delta 0.61 ng/L (0-12)
[2024-05-27 15:25] LABS: Glucose Point of Care 175 mg/dL (70-110)
--- NOTE | 2024-05-27 16:09 | PHA.VACGOAL ---
Vancomycin Goal - Goal Vancomycin Goal:: 10-15 mg/L Vancomycin Indication:: SSTI - Therapy Current therapy:: Pip/Tazo Day of therpy:: Day [1]of [] . Actual body weight (kg): 91.807 kg - Data Labs: WBC 10.01 10^3/uL (3.29-11.43) 05/27/24 07:55 RBC 3.22 10^6/uL (3.85-5.65) L 05/27/24 07:55 Hgb 8.50 g/dL (11.27-16.99) L 05/27/24 07:55 Hct 28.4 % (36-47) L 05/27/24 07:55 MCV 88.2 fl (85-98) 05/27/24 07:55 MCH 26.4 pg (27-33) L 05/27/24 07:55 MCHC 29.9 g/dL (30-55) L 05/27/24 07:55 RDW 19.8 % (12.1-15.1) H 05/27/24 07:55 Sodium 138 mmol/L (136-145) 05/27/24 07:55 Potassium 3.4 mmol/L (3.5-5.1) L 05/27/24 07:55 Chloride 102 mmol/L (98-107) 05/27/24 07:55 Carbon Dioxide 24 mmol/L (22-29) 05/27/24 07:55 Anion Gap 15.4 (5-19) 05/27/24 07:55 BUN 13 mg/dL (8-23) 05/27/24 07:55 Creatinine 0.6 mg/dL (0.5-0.9) 05/27/24 07:55 GFR Calculation 100.0 mL/min (90-130) 05/27/24 07:55 Treatment plan:: new consult Regimen:: New start vancomycin for cellulitis of the foot. 1500 mg load dose ordered. Started on 1250 mg q12h maintenance dose.
--- NOTE | 2024-05-27 16:10 | CTR_ITS ---
PROCEDURE INFORMATION: Exam: CT Abdomen And Pelvis Without Contrast Exam date and time: 05/27/2024 5:56 PM Age: 68 years old Clinical indication: Abdominal pain; Flank; Left; Additional info: Possible left uretral stone TECHNIQUE: Imaging protocol: Computed tomography of the abdomen and pelvis without contrast. Radiation optimization: All CT scans at this facility use at least one of these dose optimization techniques: automated exposure control; mA and/or kV adjustment per patient size (includes targeted exams where dose is matched to clinical indication); or iterative reconstruction. COMPARISON: CT lumbar spine wo con* [id number] 05/27/2024 3:03 PM RADIATION DOSE METRICS: Total DLP (mGy-cm): 938.13 FINDINGS: Lungs: Bibasilar atelectasis. Liver: Normal. No mass. Gallbladder and biliary ducts: Normal. No calcified stones. No ductal dilation. Pancreas: Normal. No ductal dilation. Spleen: Normal. No splenomegaly. Adrenal glands: Normal. No mass. Kidneys and ureters: Bilateral nonobstructing renal calculi. Nonspecific mild bilateral hydroureter greater on the left. There is a subtle calculus in the region of the left distal ureter just as it enters the urinary bladder seen on image 183 of series 3 and image 97 of series 6. Stomach and bowel: Moderate amount of retained stool in the colon, constipation. No high-grade mechanical bowel obstruction. There is some distal rectal wall thickening. Appendix: No secondary signs of acute appendicitis. Intraperitoneal space: There is a small amount of free fluid in the pelvis. Vasculature: Unremarkable. No abdominal aortic aneurysm. Lymph nodes: Unremarkable. No enlarged lymph nodes. Urinary bladder: The urinary bladder is underdistended around a Tong catheter. Diffuse urinary bladder wall thickening with significant perivesicular inflammatory changes. Reproductive: Unremarkable as visualized. Extraperitoneal space: There is some presacral fluid. Bones/joints: Degenerative changes of the visualized spine. Right proximal femur intramedullary nail. Soft tissues: Postsurgical changes of the ventral midline abdominal wall. CT/CT kidney stone [id number] IMPRESSION: 1. Marked urinary bladder wall thickening with perivesicular inflammatory changes. Correlate with urinalysis to exclude cystitis. Mild bilateral hydroureter is likely secondary to inflammatory changes in the urinary bladder rather than obstructing calculus. There is also a small calculus in the distal left ureter however is likely nonobstructing. 2. Additional bilateral nonobstructing renal calculi are also present. 3. Rectal wall thickening with some presacral fluid correlate for proctitis. 4. Small amount of free fluid in the pelvis. 5. Moderate constipation.
--- NOTE | 2024-05-27 16:57 | P.CONIM_ITS ---
Providers/Reason For Consult 2 Consulting Physician/Specialty*: Dr. Neville Zhang DPM/ Podiatry Reason for Consult*: Bilateral heel wounds Attending Physician: Irineo Jhaveri MD Primary Care Provider: Lety Banks APN History of Present Illness History of Present Illness Billie Govea is a 68 year old female with past medical history of CVA and residual left-sided weakness, uses Antonino lift who is currently admitted to the ICU after hypoglycemic event. She is a transfer from [facility], [place]. Upon workup she was found to have decubitus heel ulceration bilaterally. Concern for surrounding cellulitis to left heel decubitus. Podiatry was consulted to provide treatment recommendations and to determine if debridement is warranted. Patient states that the heel wounds have been present for some time now. She states that she has seen a telephone sales agent before in [place]. She states that they have been dressing the wounds with Hydrofera Blue up to this point. Review of Systems 2 General: Reports: 10 or more systems reviewed and unremarkable except in HPI and below Const: Denies: fever(s), chills, body aches or change in appetite Eyes: Denies: change in vision or blurry vision Card: Denies: chest pain, palpitations or irregular heart rhythm Resp: Denies: dyspnea GI: Denies: abdominal pain, nausea, vomiting or diarrhea Musc: Reports: joint stiffness Skin/Breast: Reports: non-healing lesions and lesions Neuro: Reports: numbness in extremities Medications/Allergies Home Medications Medication Instructions Recorded Confirmed Last Taken Type hydrocodone 10 mg-acetaminophen 1 tab PO Q8H PRN Pain 06/28/22 05/27/24 Unknown History 325 mg tablet pregabalin 100 mg capsule 100 mg PO BID 06/28/22 05/27/24 Unknown History escitalopram oxalate 10 mg tablet 15 mg PO QAM 04/25/23 05/27/24 Unknown History insulin NPH isoph U-100 human 100 See Rx Instructions SUBCUT DAILY 08/20/23 05/27/24 Unknown Rx unit/mL (3 mL) subcutaneous pen #15 mL (Humulin N NPH U-100 Insulin KwikPen) pen needle, diabetic 32 gauge x #120 ea 08/20/23 05/27/24 Unknown Rx (BD Jocelyn 2nd Gen Pen Needle) acetaminophen 325 mg tablet See Rx Instructions .Route 05/27/24 05/27/24 Unknown History .COMPLEX PRN pain or elevated temp apixaban 5 mg tablet (Eliquis) 5 mg PO DAILY 05/27/24 05/27/24 05/26/24 History aspirin 81 mg tablet,delayed 81 mg PO DAILY 05/27/24 05/27/24 05/26/24 History release atorvastatin 40 mg tablet (Lipitor) 40 mg PO BEDTIME 05/27/24 05/27/24 Unknown History bisacodyl 10 mg rectal suppository 10 mg LA Q12H PRN Constipation 05/27/24 05/27/24 Unknown History (Dulcolax (bisacodyl)) collagenase clostridium histo. 250 See Rx Instructions .Route .COMPLEX 05/27/24 05/27/24 Unknown History unit/gram topical ointment (Santyl) dextran 70-hypromellose eye drops 1 drp ophthalmic (eye) Q4H PRN Dry 05/27/24 05/27/24 Unknown History in a dropperette (Artificial Tears Eyes (PF) drops in a dropperette) diltiazem HCl 180 mg 180 mg PO DAILY 05/27/24 05/27/24 Unknown History capsule,extended release 24 hr, controlled glucagon HCl 1 mg solution for 1 mg SUBCUT PRN PRN low blood sugar 05/27/24 05/27/24 Unknown History injection (Glucagon (HCl) Emergency Kit) insulin lispro 100 unit/mL See Rx Instructions .Route .COMPLEX 05/27/24 05/27/24 Unknown History subcutaneous pen levothyroxine 175 mcg tablet 175 mcg PO QAM 05/27/24 05/27/24 Unknown History loperamide 2 mg tablet See Rx Instructions .Route 05/27/24 05/27/24 Unknown History .COMPLEX PRN Diarrhea magnesium hydroxide 400 mg/5 mL 30 ml PO Q12H PRN Constipation 05/27/24 05/27/24 Unknown History oral suspension (Milk of Magnesia) mirtazapine 7.5 mg tablet 7.5 mg PO QAM 05/27/24 05/27/24 Unknown History qosazxlb-rghseiyiv-gxpmwnxq 3.5 1 drp ophthalmic (eye) BEDTIME 05/27/24 05/27/24 Unknown History mg/mL-10,000 unit/mL-0.1% eye drops pantoprazole 40 mg tablet,delayed 40 mg PO BID 05/27/24 05/27/24 Unknown History release prednisolone acetate 1 % eye See Rx Instructions .Route .COMPLEX 05/27/24 05/27/24 Unknown History drops,suspension prednisone 10 mg tablet 10 mg PO DAILY RA 05/27/24 05/27/24 Unknown History ropinirole 0.5 mg tablet 0.5 mg PO BID restless leg syndrom 05/27/24 05/27/24 Unknown History triamcinolone acetonide 0.5 % 1 applic topical PRN PRN Skin 05/27/24 05/27/24 Unknown History topical cream Irritation Allergies Allergy/AdvReac Type Severity Reaction Status Date / Time topiramate Allergy Severe ADR-Halluci Verified 08/20/23 13:27 nating Opioids - Morphine Analogues Allergy Intermediate Unresponsiv Verified 08/20/23 13:27 e Current Medications Generic Name Dose Route Start Last Admin Trade Name Freq PRN Reason Stop Dose Admin Hydrocodone Bitart/Acetaminophen 1 tab 05/27/24 09:48 05/27/24 09:54 Hydrocodone-Acetaminophen 5-325 Mg Tablet PO 1 tab Q4H PRN Administration MODERATE PAIN Collagenase 1 applic 05/27/24 12:00 05/27/24 15:44 Collagenase Oint 30 Gm TOPICAL Not Given DAILY LANDEN Escitalopram Oxalate 15 mg 05/27/24 11:55 05/27/24 12:12 Escitalopram 10 Mg Tablet PO 15 mg QAM LANDEN Administration Hydromorphone HCl 0.4 mg 05/27/24 12:15 05/27/24 12:35 Hydromorphone 1 Mg/Ml Inj 1 Ml IVP 0.4 mg Q6H PRN Administration PAIN Dextrose/Sodium Chloride 1,000 mls @ 50 mls/hr 05/27/24 06:00 05/27/24 15:30 Dextrose 5%-Sod Chloride 0.9% IV 50 mls/hr .Q20H LANDEN Infusion Piperacillin Sod/Tazobactam 50 mls @ 12.5 mls/hr 05/27/24 14:30 05/27/24 15:39 Sod 3.375 gm/ Sodium Chloride IV 12.5 mls/hr Q8H LANDEN Administration Mirtazapine 7.5 mg 05/27/24 12:00 05/27/24 12:12 Mirtazapine 15 Mg Tablet PO 7.5 mg QAM LANDEN Administration PFSH Acute 2 PFSH: Medical History (Updated 05/27/24 @ 17:27 by Neville Zhang DPM) Atherosclerotic heart disease of [place] coronary artery without angina pectoris Cellulitis, unspecified Depression Stroke Urinary tract infection Mixed hyperlipidemia Hypothyroidism, unspecified High blood pressure Anxiety Thyroid disease Pain in left elbow History of fracture of arm Rash Debility Rheumatoid arthritis Family History Father Hypertension Brother Heart attack Sister Heart attack Brother Heart attack Mother Lung cancer Social History Smoking and tobacco/nicotine status: former use of tobacco/nicotine Alcohol intake: former Substance/Drug Use: never Vitals/I&O/Wt Last Vital Signs Temp 97.8 F 05/27/24 08:18 Pulse 87 05/27/24 14:00 Resp 17 05/27/24 14:00 BP 142/69 05/27/24 14:00 Pulse Ox 96 05/27/24 12:35 O2 Del Method Room Air 05/27/24 06:00 05/27/24 05/27/24 05/27/24 06:59 14:59 22:59 Intake Total 1045 / 1045 692.5 / 1737.5 Output Total 800 / 800 Balance 245 / 245 692.5 / 937.5 Weight last 48 hrs Weight 202 lb 6.4 oz Physical Exam 2 Narrative: GENERAL: A&O x 3 VASCULAR: DP/PT pulses diminished +1 with delayed capillary refill DERMATOLOGICAL: Unstageable decubitus heel ulcerations bilateral heels. Mild erythema surrounding decubitus heel ulceration to left heel. Lateral malleolus wound, ischemic in nature with punched-out margins, 100% fibrotic base no active drainage, negative probe to bone. No proximal streaking. No underlying fluctuance or signs of deep space infection. MUSCULOSKELETAL: Pain to palpation of periwound area to lateral malleolar wound left ankle NEUROLOGICAL: Neurological sensation to the affected foot and ankle is diminished through L4-S1 dermatomes IMAGING: CT scan of bilateral feet were personally interpreted by me which failed to demonstrate any subcutaneous emphysema or drainable accumulation of abscess. No evidence of acute osteomyelitis Urinary Catheter Management: Tong: Cath Placed During This Visit: yes Urinary Catheter Date of Insertion: 05/27/24 Urinary Catheter Time of Insertion: 08:07 Data 05/27/24 07:55 05/27/24 07:55 Micro: Microbiology 05/27/24 07:50 Bacterial Antigens - Final Urine Kidney 05/27/24 07:55 Blood Culture - Preliminary Blood SPECIMEN COLLECTED 05/27/24 08:03 Blood Culture - Preliminary Blood SPECIMEN COLLECTED A&P Assessment and plan (1) Pressure ulcer, heel, left, unstageable: (2) Pressure ulcer of right heel, unstageable: (3) Cellulitis of heel: (4) Ischemic ulcer of ankle: (5) Diabetes mellitus: Qualifiers: Diabetes mellitus type: type 2 Diabetes mellitus continuous churn buttermaker insulin use: with continuous churn buttermaker use Diabetes mellitus complication status: with hyperglycemia Qualified Code(s): E11.65 - Type 2 diabetes mellitus with hyperglycemia; Z79.4 - nursing home (current) use of insulin Plan -Bilateral decubitus heel ulceration with left lateral malleolus wound -Labs and vitals reviewed -WBC 10.01 -ESR 53 -CRP 57.6 -HR 87 -RR 17 -Tmax 97.8 -Abx Vanco/Zosyn -Diet: Okay for diet from podiatry stand -No plan for surgical intervention or debridement during this admission. Decubitus heel ulcerations are stable with no active drainage no fluctuance or signs of deep space abscess. CT scan fails to reveal any subcutaneous emphysema or acute osteomyelitis. Continue with local wound care which consists of Betadine gauze dressing to decubitus heel ulcers bilaterally. Left lateral malleolus wound appears to be ischemic in nature. Due to ischemic nature of wound we will forego any excisional debridement and continue with enzymatic debridement in the form of Santyl collagenase. -Arterial Dopplers ordered with segmental pressures to assess extent of PAD which may inhibit wound healing. -Pain Mgmt: Per primary admitting -Dressings: Daily dressing changes consisting of Betadine gauze to bilateral decubitus heel ulcers as well as Santyl collagenase to the left lateral malleolar wound. Order for dressing changes placed -I believe the patient can be discharged on oral antibiotics rather than IV antibiotics -Trend labs -Case management: Patient will need Prevalon boots to bilateral heels to offload the decubitus heel ulceration. Patient has had these before but has misplaced them. -Discharge plan: Patient is okay to discharge from podiatry standpoint with follow-up at wound care. Patient states that she has seen a telephone sales agent in [place] before. -Podiatry will continue to round on patient daily and provide recommendations Consult Attestations 2 Medical Necessity Statement: See hospitalist note Coding Level of Care Code Acute Code for Chg Fwd Diagnoses Pressure ulcer, heel, left, unstageable L89.620 Pressure ulcer of right heel, unstageable L89.610 Cellulitis of heel L03.119 Ischemic ulcer of ankle L97.309 Type 2 diabetes mellitus with hyperglycemia, with long-term current use of insulin E11.65; Z79.4 Diabetes mellitus type: type 2 Diabetes mellitus senior care insulin use: with continuous churn buttermaker use Diabetes mellitus complication status: with hyperglycemia
[2024-05-27 17:01] LABS: Glucose Point of Care 209 mg/dL (70-110)
[2024-05-27] MEDS: pregabalin 100 mg Capsule PO (17:17)
[2024-05-27] MEDS: pantoprazole DR 40 mg Tablet PO (17:17)
[2024-05-27] MEDS: ropinirole 0.25 mg Tablet 0.5 MG PO (17:17)
--- NOTE | 2024-05-27 17:28 | USCV_ITS ---
Billie Govea Age: 68 Gender: F : 1955 Exam Date: 05/27/2024 19:33 Ordering Phys: Neville Zhang DPM Technologist: MICHELLE [place]am [place] [facility] [place] Indication: LEFT ankle 3cm ulcer non-healing, RIGHT heel 3cm ulcer non-healing. Risk Factors: unknown Previous Vascular Surgery: unknown RIGHT LEFT BP: 145.0 / 68.00 BP: 128.0/ 71.00 0 0 Waveform Velocity (cm/s) Velocity (cm/s) Waveform Triphasic 111.0 Iliac Prox 180.0 Triphasic Triphasic Iliac Mid Triphasic 103.0 162.0 Biphasic 71.0 Iliac Distal 129.0 Biphasic Biphasic 96.0 STAIN MAKER 133.0 Triphasic Triphasic 76.0 SFA Prox 96.0 Triphasic Monophasic 105.0 SFA Mid 126.0 Triphasic Monophasic 95.0 SFA Dist 87.0 Biphasic Monophasic 391.0 POP 364.0 Biphasic Monophasic 54.0 UNIFORM DESIGNER 22.0 Monophasic N/A 0.0 DPA 34.0 Monophasic 0.4 ALMA 0.3 FINDINGS Mild to moderate diffuse plaque in the iliac and femoral arteries bilaterally. Moderate to heavy plaques in the popliteal arteries bilaterally. Elevated Doppler velocity in the vertebral arteries bilaterally Resting ALMA 0.4 on the right and 0.3 on the left CONCLUSIONS 1. Markedly diminished resting ABIs bilaterally suggesting severe peripheral arterial disease. 2. Elevated velocities and abnormal Doppler waveforms suggesting high-grade stenosis at the level of the distal popliteal arteries bilaterally 3. Abnormal Doppler waveforms suggesting collateral filling of the dorsalis pedis and posterior arteries on the left side 4. Possible occlusion of the dorsalis pedis artery on the right side with collateral filling in the posterior tibial artery No similar previous studies are available for comparison Dr Jeff Liang MD [facility] (Electronically Signed) Final Date: 28 May 2024 09:20 S
[2024-05-27 19:00] LABS: Glucose Point of Care 254 mg/dL (70-110)
--- NOTE | 2024-05-27 19:26 | PC.NURSE ---
IV Fluids: d5NS off on arrival to shift @1900, MAR edited to reflect this.
[2024-05-27 19:51] LABS: Glucose Point of Care 236 mg/dL (70-110)
[2024-05-27] MEDS: apixaban 5 mg Tablet PO (20:58)
[2024-05-27] MEDS: atorvastatin 40 mg Tablet PO (20:58)
[2024-05-27] MEDS: vancomycin 1,250 MG/250 ML PIGGYBACK 166 MG IV (21:57)
[2024-05-27 22:32] LABS: Glucose Point of Care 256 mg/dL (70-110)
[2024-05-28] VITALS (24 sets, daily range): BP systolic 97–164; BP diastolic 65–122; PULSE 87–122; RESP 12–23; TEMP 36.7–37.1; O2SAT 90–98
[2024-05-28 00:28] LABS: Glucose Point of Care 217 mg/dL (70-110)
[2024-05-28] MEDS: HYDROcodone-acetaminophen 5-325 mg Tablet 1 TAB PO ×3 (00:51→23:04)
[2024-05-28 02:06] LABS: Glucose Point of Care 226 mg/dL (70-110)
[2024-05-28] MEDS: HYDROmorphone 1 mg/mL INJ 1 mL 0.4 MG IVP (04:12)
[2024-05-28 04:30] LABS: Basophils # 0.1 10^3/uL (0.0-0.1); Basophils % 1.1 %; Eosinophils # 0.4 10^3/uL (0.0-0.8); Eosinophils % 4.6 %; Hematocrit 26.8 % (36-47); Lymphocytes # 3.1 10^3/uL (0.8-4.8); Mean Corpuscular HGB Conc 30.2 g/dL (30-55); Mean Corpuscular Hemoglobin 27.1 pg (27-33); Mean Corpuscular Volume 89.6 fl (85-98); Monocytes # 0.6 10^3/uL (0.2-0.9); Monocytes % 6.4 %; Neutrophils # 5.13 10^3/uL (1.8-7.7); Neutrophils % 54.7 %; Nucleated Red Blood Cells % 0 %; Platelet Count 317 10^3/cmm (157-399); Red Blood Count 2.99 10^6/uL (3.85-5.65); Red Cell Distribution Width 19.5 % (12.1-15.1); White Blood Count 9.37 10^3/uL (3.29-11.43)
[2024-05-28 04:50] LABS: Magnesium 1.7 mg/dL (1.7-2.3)
[2024-05-28 04:52] LABS: Alanine Aminotransferase < 5 U/L (0-33); Alkaline Phosphatase 85 U/L (35-105); Anion Gap 10.3 (5-19); Aspartate Amino Transferase 9 U/L (0-32); Blood Urea Nitrogen 13 mg/dL (8-23); Calcium 8.5 mg/dL (8.5-10.5); Carbon Dioxide 26 mmol/L (22-29); Chloride 106 mmol/L (98-107); Creatinine Clr Calc Pharmacy 74.4347; Globulin 3.8 g/dL (1.3-4.6); Glomerular Filtration Rate 71.8 mL/min (90-130); Glucose 210 mg/dL (65-115); Osmolality Calculated 294 mOsm/kg (285-295); Potassium 3.3 mmol/L (3.5-5.1); Sodium 139 mmol/L (136-145); Total Bilirubin 0.3 mg/dL (0.15-1.2); Total Protein 6.8 g/dL (6.6-8.7)
[2024-05-28 05:16] LABS: Folate Level 6.3 ng/mL (4.8-37.3)
[2024-05-28] MEDS: levothyroxine 175 mcg Tablet PO (05:27)
[2024-05-28] MEDS: mirtazapine 15 mg Tablet 7.5 MG PO (05:28)
[2024-05-28] MEDS: escitalopram 10 mg Tablet 15 MG PO (05:29)
[2024-05-28] MEDS: piperacillin-tazobactam 3.375 GM in sodium chloride 0.9% (plus) 50 ML IV ×3 (05:33→23:39)
[2024-05-28 07:11] LABS: Glucose Point of Care 187 mg/dL (70-110)
[2024-05-28] MEDS: ropinirole 0.25 mg Tablet 0.5 MG PO ×2 (08:27→18:21)
[2024-05-28] MEDS: pregabalin 100 mg Capsule PO ×2 (08:28→18:20)
[2024-05-28] MEDS: apixaban 5 mg Tablet PO ×2 (08:28→20:40)
[2024-05-28] MEDS: pantoprazole DR 40 mg Tablet PO ×2 (08:28→18:21)
[2024-05-28] MEDS: aspirin 81 mg EC Tablet PO (08:28)
[2024-05-28] MEDS: vancomycin 1,250 MG/250 ML PIGGYBACK 166 MG IV ×2 (09:32→22:07)
[2024-05-28] MEDS: potassium chloride ER 20 mEq Tablet 40 MEQ PO (09:32)
[2024-05-28 09:56] LABS: Glucose Point of Care 186 mg/dL (70-110)
[2024-05-28 11:07] LABS: Glucose Point of Care 166 mg/dL (70-110)
[2024-05-28] MEDS: collagenase oint 30 gm 1 APPLIC TOPICAL (11:42)
[2024-05-28] MEDS: insulin lispro 100 unit/1 mL SUBCUT ×3 (11:43→20:40)
--- NOTE | 2024-05-28 13:46 | P.PN_ITS ---
Subjective 2 Subjective: No events overnight. Patient on examination early comfortably in bed. Denies any nausea or vomiting, headache. Vitals/I&O/Wt Last Vital Signs Temp 98.2 F 05/28/24 08:00 Pulse 108 H 05/28/24 12:00 Resp 15 05/28/24 12:00 BP 130/83 05/28/24 12:00 Pulse Ox 95 05/28/24 12:00 O2 Del Method Room Air 05/28/24 06:00 05/27/24 05/28/24 05/28/24 22:59 06:59 14:59 Intake Total 1365.0 / 2410.0 420 / 2830.0 1005 / 1005 Output Total 1950 / 2750 Balance 1365.0 / 1610.0 -1530 / 80.0 1005 / 1005 Weight last 48 hrs Weight 90.31 kg Weight 91.807 kg Physical Exam 2 Const: COMMON NORMALS: no acute distress and patient oriented x3 HENMT: COMMON NORMALS: normocephalic HEAD & SCALP: normocephalic Eye: COMMON NORMALS: Equal, round and reactive pupils present PUPIL: Yes Equal, round and reactive pupils present OTHER: Left eye corneal clouding, cataract Neck/C-Spine: COMMON NORMALS: no JVD Resp: COMMON NORMALS: normal respiratory effort, No retractions, No use of accessory muscles and clear to auscultation bilaterally AUSCULTATION: clear to auscultation bilaterally Cardio: COMMON NORMALS: no JVD, regular rate, regular rhythm, S1 normal heart sound present and S2 normal heart sound present RATE: regular rate RHYTHM: regular rhythm HEART SOUNDS: S1 normal heart sound present and S2 normal heart sound present GI: COMMON NORMALS: Normal to inspection, nondistended, normoactive bowel sounds present, Soft to palpation and non-tender PALPATION: Yes Soft to palpation Extremity: COMMON NORMALS: no pedal edema Neuro: COMMON NORMALS: patient oriented x3 and CN's II-XII intact bilaterally OTHER: Bilateral lower extremity weakness, Psych: COMMON NORMALS: mental status grossly normal Skin: OTHER: Urinary Catheter Management: Tong: Cath Placed During This Visit: yes Reason for Continuing Indwelling Catheter: Accurate Measurement of Urinary Output in Critically Ill Patients Urinary Catheter Date of Insertion: 05/27/24 Urinary Catheter Time of Insertion: 08:07 Data 05/28/24 03:37 05/28/24 03:37 Micro: Microbiology 05/27/24 07:50 Urine Culture - Preliminary Urine Catheterized 05/27/24 07:55 Blood Culture - Preliminary Blood NEGATIVE TO DATE 05/27/24 08:03 Blood Culture - Preliminary Blood NEGATIVE TO DATE 05/27/24 07:50 Bacterial Antigens - Final Urine Kidney A&P Assessment and plan (1) Hypoglycemia: (2) Diabetes mellitus: Qualifiers: Diabetes mellitus type: type 2 Diabetes mellitus shelter insulin use: with shelter use Diabetes mellitus complication status: with hyperglycemia Qualified Code(s): E11.65 - Type 2 diabetes mellitus with hyperglycemia; Z79.4 - [facility] (current) use of insulin (3) Hypothyroidism, unspecified: Qualifiers: Hypothyroidism type: acquired Qualified Code(s): E03.9 - Hypothyroidism, unspecified (4) Urinary tract infection: (5) Diabetic ulcer of foot associated with diabetes mellitus due to underlying condition, limited to breakdown of skin: (6) Sacral decubitus ulcer: (7) Cellulitis of heel: (8) CAD (coronary artery disease): (9) Mixed hyperlipidemia: (10) Hypothermia: Plan Hypoglycemia: Due to accidental overdose of Lantus Blood sugar stable. Continue with D5 NS at 75 cc/h. Monitor blood sugars every 2 hour. Switch to regular diet. If blood sugars remain stable we will plan to discontinue IV fluids within next 24 hours. UTI: Appreciate UA. Follow-up urine culture, blood culture. Add bacterial antigen. For now continue with IV Zosyn. Bilateral heel ulcers with black eschar: Will consult podiatry for further recommendations. ESR CRP mildly elevated. CT of the heel to rule out underlying collection. Continue with Zosyn as above. Continue with vancomycin. Check MRSA swab. If negative will discontinue vancomycin. Type 2 diabetes mellitus: Currently having hypoglycemia. Appreciate A1c. Hold off on antidiabetic medications for now. Sacral decubitus ulcer: Frequent repositioning. Will request medical records from the rehab so that can start on medications at home dose. Back pain: Patient states chronic. States she recently had a fall. At baseline she seems to be bedbound for stroke. Continue with IV Dilaudid 0.4 every 6 hours as needed. Hold off on Valium until [facility]. [place] 5 mg every [address] lumbar spine. Will restart home medications when list available. CODE STATUS, DNR/DNI, confirmed with patient multiple times Eliquis for DVT prophylaxis Protonix for PUD prophylaxis. Plan for the day: IV fluids discontinued. Continue to monitor blood sugars before meals and at bedtime. Add insulin sliding scale before meals and at bedtime at low-dose protocol. Hypoglycemia protocol. Appreciate A1c was 6.1. Continue with IV Zosyn and vancomycin. MRSA swab positive. Follow-up blood culture and urine culture. Appreciate podiatry recommendation. Appreciate CT abdomen pelvis with concerns for significant cystitis leading to inflammation at ureteral junctions. Patient would need to follow-up with urology as an outpatient for possible cystoscopy. No concerns for urinary obstruction for now. Replace 40 mg of oral potassium. Continue with current pain medications. Wound care as per podiatry team. Transfer to [facility] floor. Discharge plan: Discussed detail with the patient. She will be discharging to home to live with her son. Patient is agreeable for possible arrangement of home health for wound care. Case management alerted. Attestations 2 Medical Necessity Statement*: Requires further hospitalization for management of UTI, hypoglycemia in setting of accidental overdose of Lantus Diagnoses Hypoglycemia E16.2 Type 2 diabetes mellitus with hyperglycemia, with long-term current use of insulin E11.65; Z79.4 Diabetes mellitus type: type 2 Diabetes mellitus long term acute care registered nurse insulin use: with long term acute care registered nurse use Diabetes mellitus complication status: with hyperglycemia Acquired hypothyroidism E03.9 Hypothyroidism type: acquired Urinary tract infection N39.0 Diabetic ulcer of foot associated with diabetes mellitus due to underlying condition, limited to breakdown of skin E08.621; L97.501 Sacral decubitus ulcer L89.159 Cellulitis of heel L03.119 CAD (coronary artery disease) I25.10 Mixed hyperlipidemia E78.2 Hypothermia T68.XXXA
--- NOTE | 2024-05-28 16:16 | PC.NURSE ---
Transfer Note Patient transferred to med-surg room 253 from ICU via bed. Patient oriented to environment and equipment. Covering service notified. Orders reviewed and will continue to monitor. Family notified patient transitioned upstairs. All patient belongings transferred and placed at bedside.
[2024-05-28] MEDS: HYDROmorphone 1 mg/mL INJ 1 mL 0.2 MG IVP (18:20)
[2024-05-28] MEDS: atorvastatin 40 mg Tablet PO (20:40)
[2024-05-28 20:43] LABS: Glucose Point of Care 171 mg/dL (70-110)
[2024-05-29] VITALS (11 sets, daily range): BP systolic 123–159; BP diastolic 73–99; PULSE 91–117; RESP 15–20; TEMP 36.7–37.6; O2SAT 92–99
[2024-05-29] MEDS: HYDROmorphone 1 mg/mL INJ 1 mL 0.2 MG IVP ×3 (01:29→20:33)
[2024-05-29] MEDS: escitalopram 10 mg Tablet 15 MG PO (05:39)
[2024-05-29] MEDS: piperacillin-tazobactam 3.375 GM in sodium chloride 0.9% (plus) 50 ML IV ×3 (05:39→21:59)
[2024-05-29] MEDS: mirtazapine 15 mg Tablet 7.5 MG PO (05:40)
[2024-05-29] MEDS: levothyroxine 175 mcg Tablet PO (05:41)
[2024-05-29 06:23] LABS: Glucose Point of Care 174 mg/dL (70-110)
[2024-05-29 06:47] LABS: Basophils # 0.1 10^3/uL (0.0-0.1); Eosinophils # 0.2 10^3/uL (0.0-0.8); Eosinophils % 2.3 %; Lymphocytes # 4.3 10^3/uL (0.8-4.8); Mean Platelet Volume 10.3 fL (7.4-10.4); Monocytes # 0.6 10^3/uL (0.2-0.9); Monocytes % 6.3 %; Neutrophils # 4.75 10^3/uL (1.8-7.7); Neutrophils % 47.2 %; Nucleated Red Blood Cells % 0 %; Platelet Count 296 10^3/cmm (157-399); Red Blood Count 2.89 10^6/uL (3.85-5.65); Red Cell Distribution Width 19.4 % (12.1-15.1); White Blood Count 10.05 10^3/uL (3.29-11.43)
[2024-05-29 07:12] LABS: Alanine Aminotransferase < 5 U/L (0-33); Albumin Level 2.8 g/dL (3.5-5.2); Alkaline Phosphatase 91 U/L (35-105); Anion Gap 16.9 (5-19); Aspartate Amino Transferase 8 U/L (0-32); Blood Urea Nitrogen 13 mg/dL (8-23); Calcium 8.7 mg/dL (8.5-10.5); Carbon Dioxide 22 mmol/L (22-29); Chloride 105 mmol/L (98-107); Creatinine Clr Calc Pharmacy 74.8707; Globulin 3.7 g/dL (1.3-4.6); Glomerular Filtration Rate 83.7 mL/min (90-130); Glucose 156 mg/dL (65-115); Osmolality Calculated 293 mOsm/kg (285-295); Potassium 3.9 mmol/L (3.5-5.1); Sodium 140 mmol/L (136-145); Total Bilirubin 0.4 mg/dL (0.15-1.2); Total Protein 6.5 g/dL (6.6-8.7)
[2024-05-29 07:18] LABS: Magnesium 1.7 mg/dL (1.7-2.3)
[2024-05-29] MEDS: pantoprazole DR 40 mg Tablet PO ×2 (08:12→17:50)
[2024-05-29] MEDS: apixaban 5 mg Tablet PO ×2 (08:12→20:33)
[2024-05-29] MEDS: insulin lispro 100 unit/1 mL SUBCUT ×4 (08:12→21:57)
[2024-05-29] MEDS: aspirin 81 mg EC Tablet PO (08:12)
[2024-05-29] MEDS: pregabalin 100 mg Capsule PO ×2 (08:12→17:50)
[2024-05-29] MEDS: ropinirole 0.25 mg Tablet 0.5 MG PO ×2 (08:12→17:50)
--- NOTE | 2024-05-29 10:00 | PC.SOCIAL ---
IMM Update pg 2 of IMM updated and reviewed w/ patient. Copy provided and copy dated, initialed and placed in chart.
[2024-05-29 10:01] LABS: Vancomycin Trough 17.7 ug/mL (10-15)
--- NOTE | 2024-05-29 10:17 | CTR_ITS ---
PROCEDURE INFORMATION: Exam: CTA Abdominal Aorta and Bilateral Lower Extremities (Run-off) With Contrast Exam date and time: 05/29/2024 1:35 PM Age: 68 years old Clinical indication: Shortness of breath; Prior surgery; Surgery date: 6+ months; Surgery type: Hip/femur; Additional info: Severe pad TECHNIQUE: Imaging protocol: Computed tomographic angiography of the of the abdominal aorta, pelvis and bilateral lower extremities with contrast. 3D rendering (Not supervised by radiologist): MIP and/or 3D reconstructed images were created by the technologist. Radiation optimization: All CT scans at this facility use at least one of these dose optimization techniques: automated exposure control; mA and/or kV adjustment per patient size (includes targeted exams where dose is matched to clinical indication); or iterative reconstruction. Contrast material: OMNI 350; Contrast volume: 100 ml; Contrast route: INTRAVENOUS (IV); COMPARISON: CT kidney stone [id number] 05/27/2024 5:56 PM RADIATION DOSE METRICS: Total DLP (mGy-cm): 938.13 FINDINGS: Aorta: No evidence of abdominal aortic aneurysm. Atherosclerotic changes are present in the aorta. Celiac trunk and mesenteric arteries: Celiac artery is widely patent. Is mild stenosis of the proximal SMA. Renal arteries: Mild stenosis of the origin of the right renal artery. Severe stenosis of the proximal left renal artery proximally 1.2 cm from the origin. Flow is seen distal to the stenosis. Right iliac arteries: Short segment dissection of the proximal right common iliac artery measuring proximally 1.5 cm in length (series 09/10/2075, series 6, image 163. No significant stenosis of the right external iliac artery. Right femoral/popliteal arteries: No significant stenosis of the right common femoral artery. Multilevel stenoses varying severity are present in the right superficial femoral artery. Example of the areas of high-grade stenosis is seen in the mid to distal thigh on series 4, image 656. There is flow extending into the right popliteal artery which also demonstrates multifocal areas of moderate to severe stenosis and occlusion in the mid popliteal region. There is reconstitution of flow in the more distal popliteal artery just proximal to the bifurcation. Right infrapopliteal arteries: There are high-grade stenoses of the right proximal anterior tibial artery in the femoropopliteal trunk. The right posterior tibial artery occluded in the proximal calf. Multilevel foci of moderate severe stenosis are present in the peroneal artery and anterior tibial artery. There is single-vessel runoff to the foot via the anterior tibial artery. Left iliac arteries: Areas of mild stenosis in the left common iliac artery. There is a focal area moderate stenosis of the mid left external iliac artery on series 4, image 396. Left femoral/popliteal arteries: Severe stenosis of the origin of the left SFA (series 4, image 433 multilevel areas of varying degrees of stenosis of the left SFA present. Example of the areas severe stenosis is seen in the mid thigh on series 4, image 600. Other areas of severe stenosis as seen on series 4627 in the mid distal thigh. Flow into the left popliteal artery is seen. Occlusion of the proximal left popliteal artery. Left infrapopliteal arteries: Multifocal areas of severe stenosis and occlusion seen in the left calf vessels with some segments of reconstituted flow. There is a small amount of flow noted in the distal 3 left calf vessels into the foot and ankle. Lungs: Mild basilar scar versus atelectasis. Pleural spaces: Trace pleural effusions bilaterally. Heart: Cardiomegaly. Coronary arteries: Coronary artery calcifications. Esophagus: Mural thickening distal thoracic esophagus. Liver: Liver is unremarkable. Diaphragm: Small hiatal hernia. Gallbladder and biliary ducts: Small amount of pericholecystic fluid. No gallstone is seen. No biliary dilatation. Pancreas: No significant pancreatic pathology. Spleen: No significant splenic pathology. Adrenal glands: Right adrenal gland is unremarkable. Rounded fat-attenuation left adrenal nodule measuring 1.5 cm consistent myelolipoma. Kidneys and ureters: There are renal cortical cysts and subcentimeter cortical hypodensities which are indeterminate by criteria but statistically most likely represent cysts. Atrophy upper moiety of the duplex left renal collecting system. Bilateral renal cortical scarring. Left renal calcification may represent nonobstructive calculi or vascular calcifications. Stomach and bowel: Large amount of colonic stool. Appendix: No evidence of appendicitis. Urinary bladder: Urinary bladder is decompressed by Tong catheter limiting assessment of the wall. Limited assessment of the urinary bladder secondary to nondistention. Bladder wall thickening is present. Findings indeterminate for intraluminal material in the urinary bladder lumen. Perivesical fat infiltration is present. No discrete fluid collection is seen. Reproductive: Prior hysterectomy. No significant adnexal pathology. Intraperitoneal space: No ascites. Lymph nodes: No evidence of lymphadenopathy. No evidence of lymphadenopathy. Bones/joints: Fixation hardware is present in the right femur. Artifact arising from screws partially obscures adjacent anatomy. Moderate degenerative change bilat bilateral ankles and feet. Levocurvature of the lumbar spine with disc disease greatest from L3 through L5. Soft tissues: See Right femoral/popliteal arteries finding. CT/CT angio abd aorta runof [id number] IMPRESSION: 1. Extensive atherosclerotic changes of bilateral lower extremities with multilevel areas severe stenosis and occlusion detailed above. Some reconstituted flow seen in the distal calf vessels with single-vessel runoff on the right three-vessel runoff on the left. 2. Decompressed urinary bladder with Tong catheter in place. Marked bladder wall thickening well as perivesical fat infiltration suggesting possible acute pathology such as infection although correlation with any prior treatment is recommended. 3. Multiple minor findings described above.
[2024-05-29] MEDS: vancomycin 1,250 MG/250 ML PIGGYBACK 250 MG IV (10:43)
[2024-05-29 10:58] LABS: Glucose Point of Care 156 mg/dL (70-110)
--- NOTE | 2024-05-29 11:01 | P.PN_ITS ---
Subjective 2 Subjective: No acute events overnight. Patient has remained hemodynamically stable and afebrile. States she is having pain in her lower legs. States pain has been chronic and she is concerned that the pain is because of blocked arteries. Denies any nausea, Vomiting, headache. Vitals/I&O/Wt Last Vital Signs Temp 98.4 F 05/29/24 08:00 Pulse 117 H 05/29/24 08:00 Resp 20 H 05/29/24 09:11 BP 157/92 05/29/24 08:00 Pulse Ox 96 05/29/24 08:00 O2 Del Method Room Air 05/29/24 08:00 05/28/24 05/29/24 05/29/24 22:59 06:59 14:59 Intake Total 170 / 1175 540 / 1715 310 / 310 Output Total 950 / 2050 650 / 2700 Balance -780 / -875 -110 / -985 310 / 310 Weight last 48 hrs Weight 92.805 kg Weight 90.31 kg Physical Exam 2 Const: COMMON NORMALS: no acute distress and patient oriented x3 HENMT: COMMON NORMALS: normocephalic HEAD & SCALP: normocephalic Eye: COMMON NORMALS: Equal, round and reactive pupils present PUPIL: Yes Equal, round and reactive pupils present OTHER: Left eye corneal clouding, cataract Neck/C-Spine: COMMON NORMALS: no JVD Resp: COMMON NORMALS: normal respiratory effort, No retractions, No use of accessory muscles and clear to auscultation bilaterally AUSCULTATION: clear to auscultation bilaterally Cardio: COMMON NORMALS: no JVD, regular rate, regular rhythm, S1 normal heart sound present and S2 normal heart sound present RATE: regular rate RHYTHM: regular rhythm HEART SOUNDS: S1 normal heart sound present and S2 normal heart sound present GI: COMMON NORMALS: Normal to inspection, nondistended, normoactive bowel sounds present, Soft to palpation and non-tender PALPATION: Yes Soft to palpation Extremity: COMMON NORMALS: no pedal edema Neuro: COMMON NORMALS: patient oriented x3 and CN's II-XII intact bilaterally OTHER: Bilateral lower extremity weakness, Psych: COMMON NORMALS: mental status grossly normal Skin: OTHER: Urinary Catheter Management: Tong: Cath Placed During This Visit: yes Reason for Continuing Indwelling Catheter: Acute Urinary Retention or Obstruction Urinary Catheter Date of Insertion: 05/27/24 Urinary Catheter Time of Insertion: 08:07 Data 05/29/24 06:36 05/29/24 06:36 Micro: Microbiology 05/27/24 07:50 Urine Culture - Preliminary Urine Catheterized 05/27/24 07:55 Blood Culture - Preliminary Blood NEGATIVE TO DATE 05/27/24 08:03 Blood Culture - Preliminary Blood NEGATIVE TO DATE A&P Assessment and plan (1) Urinary tract infection: (2) Diabetic ulcer of foot associated with diabetes mellitus due to underlying condition, limited to breakdown of skin: (3) Cellulitis of heel: (4) Peripheral artery disease: (5) Hypoglycemia: (6) Diabetes mellitus: Qualifiers: Diabetes mellitus type: type 2 Diabetes mellitus alf insulin use: with alf use Diabetes mellitus complication status: with hyperglycemia Qualified Code(s): E11.65 - Type 2 diabetes mellitus with hyperglycemia; Z79.4 - penitentiary (current) use of insulin (7) Hypothyroidism, unspecified: Qualifiers: Hypothyroidism type: acquired Qualified Code(s): E03.9 - Hypothyroidism, unspecified (8) Sacral decubitus ulcer: (9) CAD (coronary artery disease): (10) Mixed hyperlipidemia: (11) Hypothermia: Plan Hypoglycemia: Due to accidental overdose of Lantus Blood sugar stable. Continue with D5 NS at 75 cc/h. Monitor blood sugars every 2 hour. Switch to regular diet. If blood sugars remain stable we will plan to discontinue IV fluids within next 24 hours. UTI: Appreciate UA. Follow-up urine culture, blood culture. Add bacterial antigen. For now continue with IV Zosyn. Bilateral heel ulcers with black eschar:In setting of severe bilateral PAD Will consult podiatry for further recommendations. ESR CRP mildly elevated. CT of the heel to rule out underlying collection. Continue with Zosyn as above. Continue with vancomycin. Check MRSA swab. If negative will discontinue vancomycin. Type 2 diabetes mellitus: Currently having hypoglycemia. Appreciate A1c. Hold off on antidiabetic medications for now. Sacral decubitus ulcer: Frequent repositioning. Will request medical records from the rehab so that can start on medications at home dose. Back pain: Patient states chronic. States she recently had a fall. At baseline she seems to be bedbound for stroke. Continue with IV Dilaudid 0.4 every 6 hours as needed. Hold off on Valium until confirmed from [facility]. [place] 5 mg every [address] lumbar spine. Will restart home medications when list available. CODE STATUS, DNR/DNI, confirmed with patient multiple times Eliquis for DVT prophylaxis Protonix for PUD prophylaxis. Plan for the day: No further episodes of hypoglycemia. Continue with insulin sliding scale. Depending on insulin requirement in next 24 hours we will plan to add Lantus. Follow-up culture results. For now continue with IV vancomycin and Zosyn. If cultures remain negative we will plan to finish a 5-day course of antibiotics overall. Wound care as per podiatry team. Appreciate podiatry recommendation. Appreciate CT abdomen pelvis with concerns for significant cystitis leading to inflammation at ureteral junctions. Patient would need to follow-up with urology as an outpatient for possible cystoscopy. No concerns for urinary obstruction for now. Renal function stable. Lower limb arterial duplex consistent with severe PAD. Plan for CT abdomen aorta with runoff. Plan to consult cardiology accordingly. Continue with aspirin, statin. Depending on the CT aorta result we will plan for adding cilostazol. Continue with home dose of pregabalin. Continue with Anthony every 6 hours as needed. Change Dilaudid to every 8 hours as needed. Discharge plan: Discussed detail with the patient. She will be discharging to home to live with her son. Patient is agreeable for possible arrangement of home health for wound care. Case management alerted. Attestations 2 Medical Necessity Statement*: Requires further hospitalization for management of significant cystitis, bilateral heel ulcer in setting of severe PAD while safe discharge planning is sought Diagnoses Urinary tract infection N39.0 Diabetic ulcer of foot associated with diabetes mellitus due to underlying condition, limited to breakdown of skin E08.621; L97.501 Cellulitis of heel L03.119 Peripheral artery disease I73.9 Hypoglycemia E16.2 Type 2 diabetes mellitus with hyperglycemia, with long-term current use of insulin E11.65; Z79.4 Diabetes mellitus type: type 2 Diabetes mellitus alf insulin use: with alf use Diabetes mellitus complication status: with hyperglycemia Acquired hypothyroidism E03.9 Hypothyroidism type: acquired Sacral decubitus ulcer L89.159 CAD (coronary artery disease) I25.10 Mixed hyperlipidemia E78.2 Hypothermia T68.XXXA
[2024-05-29] MEDS: iohexol 350 mg/mL 500 mL Btl (per mL) IV (13:42)
[2024-05-29] MEDS: HYDROcodone-acetaminophen 5-325 mg Tablet 1 TAB PO (16:22)
[2024-05-29 17:20] LABS: Glucose Point of Care 196 mg/dL (70-110)
[2024-05-29] MEDS: atorvastatin 40 mg Tablet PO (20:32)
[2024-05-29 20:51] LABS: Glucose Point of Care 224 mg/dL (70-110)
[2024-05-29] MEDS: vancomycin 1,250 MG/250 ML PIGGYBACK 166 MG IV (21:58)
[2024-05-30] VITALS (11 sets, daily range): BP systolic 125–158; BP diastolic 76–98; PULSE 90–113; RESP 16–21; TEMP 36.4–37.2; O2SAT 92–96
[2024-05-30] MEDS: HYDROcodone-acetaminophen 5-325 mg Tablet 1 TAB PO ×3 (01:57→21:14)
[2024-05-30 03:32] LABS: Glucose Point of Care 159 mg/dL (70-110)
[2024-05-30] MEDS: piperacillin-tazobactam 3.375 GM in sodium chloride 0.9% (plus) 50 ML IV ×2 (05:29→14:23)
[2024-05-30] MEDS: levothyroxine 175 mcg Tablet PO (05:30)
[2024-05-30] MEDS: mirtazapine 15 mg Tablet 7.5 MG PO (05:30)
[2024-05-30] MEDS: escitalopram 10 mg Tablet 15 MG PO (05:30)
[2024-05-30 06:25] LABS: Glucose Point of Care 155 mg/dL (70-110)
[2024-05-30] MEDS: insulin lispro 100 unit/1 mL SUBCUT ×4 (07:53→21:14)
[2024-05-30] MEDS: ropinirole 0.25 mg Tablet 0.5 MG PO ×2 (07:54→17:18)
[2024-05-30] MEDS: aspirin 81 mg EC Tablet PO (07:54)
[2024-05-30] MEDS: pregabalin 100 mg Capsule PO ×2 (07:54→17:18)
[2024-05-30] MEDS: pantoprazole DR 40 mg Tablet PO ×2 (07:54→17:18)
[2024-05-30] MEDS: apixaban 5 mg Tablet PO (07:55)
[2024-05-30] MEDS: collagenase oint 30 gm 1 APPLIC TOPICAL (09:16)
--- NOTE | 2024-05-30 09:18 | PM.PN ---
Subjective Subjective: Patient seen at bedside this morning. Complains of left lateral ankle pain at site of ulceration. Vitals/I&O/Wt Last Vital Signs Temp 97.9 F 05/30/24 08:00 Pulse 113 H 05/30/24 08:00 Resp 16 05/30/24 08:00 BP 152/92 05/30/24 08:00 Pulse Ox 95 05/30/24 08:00 O2 Del Method Room Air 05/30/24 08:00 05/29/24 05/30/24 05/30/24 22:59 06:59 14:59 Intake Total 270 / 1052 300 / 1352 420 / 420 Output Total 800 / 1975 1750 / 3725 800 / 800 Balance -530 / -923 -1450 / -2373 -380 / -380 Weight last 48 hrs Weight 198 lb 6.656 oz Weight 204 lb 9.6 oz Physical Exam Narrative: GENERAL: A&O x 3 VASCULAR: DP/PT pulses diminished +1 with delayed capillary refill DERMATOLOGICAL: Unstageable decubitus heel ulcerations bilateral heels. Mild erythema surrounding decubitus heel ulceration to left heel. Lateral malleolus wound, ischemic in nature with punched-out margins, 100% fibrotic base no active drainage, negative probe to bone. No proximal streaking. No underlying fluctuance or signs of deep space infection. MUSCULOSKELETAL: Pain to palpation of periwound area to lateral malleolar wound left ankle NEUROLOGICAL: Neurological sensation to the affected foot and ankle is diminished through L4-S1 dermatomes IMAGING: CT scan of bilateral feet were personally interpreted by me which failed to demonstrate any subcutaneous emphysema or drainable accumulation of abscess. No evidence of acute osteomyelitis Urinary Catheter Management: Tong: Cath Placed During This Visit: yes Reason for Continuing Indwelling Catheter: Accurate Measurement of Urinary Output in Critically Ill Patients Urinary Catheter Date of Insertion: 05/27/24 Urinary Catheter Time of Insertion: 08:07 Data 05/29/24 06:36 05/29/24 06:36 Micro: Microbiology 05/27/24 07:50 Urine Culture - Final Urine Catheterized Enterococcus faecalis A&P Assessment and plan (1) Pressure ulcer, heel, left, unstageable: (2) Pressure ulcer of right heel, unstageable: (3) Cellulitis of heel: (4) Ischemic ulcer of ankle: (5) Diabetes mellitus: Qualifiers: Diabetes mellitus type: type 2 Diabetes mellitus termite treater helper insulin use: with termite treater helper use Diabetes mellitus complication status: with hyperglycemia Qualified Code(s): E11.65 - Type 2 diabetes mellitus with hyperglycemia; Z79.4 - termite treater helper (current) use of insulin Plan -Bilateral decubitus heel ulceration with left lateral malleolus wound -Labs and vitals reviewed -VSS -Abx Vanco/Zosyn -Diet: Okay for diet from podiatry stand -No plan for surgical intervention or debridement during this admission. Decubitus heel ulcerations are stable with no active drainage no fluctuance or signs of deep space abscess. CT scan fails to reveal any subcutaneous emphysema or acute osteomyelitis. Continue with local wound care which consists of Betadine gauze dressing to decubitus heel ulcers bilaterally. Left lateral malleolus wound appears to be ischemic in nature. Due to ischemic nature of wound we will forego any excisional debridement and continue with enzymatic debridement in the form of Santyl collagenase. -CT angiogram reviewed which shows extensive atherosclerotic changes bilateral lower extremities with stenosis and occlusion with single-vessel runoff to the right lower extremity and three-vessel runoff to the left with reconstitution. Based on these findings of severe PAD again, any debridement will be postponed until vascularly optimized as there is no urgent or emergent indication for debridement. Continue with local wound care. If patient undergoes revascularization, will need to monitor closely for subsequent infection of heel ulcers or lateral malleolus ulcer to left which may require future debridement -Arterial Dopplers ordered with segmental pressures to assess extent of PAD which may inhibit wound healing. -Pain Mgmt: Per primary admitting -Dressings: Daily dressing changes consisting of Betadine gauze to bilateral decubitus heel ulcers as well as Santyl collagenase to the left lateral malleolar wound. Order for dressing changes placed -Trend labs -Case management: Patient will need Prevalon boots to bilateral heels to offload the decubitus heel ulceration. Patient has had these before but has misplaced them. -Discharge plan: Patient is okay to discharge from podiatry standpoint with follow-up at wound care. Patient states that she has seen a continuous towel roller in [place] before. -Podiatry will continue to round on patient and provide recommendations Attestations Medical Necessity Statement*: See hospitalist note Coding Level of Care Code Acute Code for g Fwd Diagnoses Pressure ulcer, heel, left, unstageable L89.620 Pressure ulcer of right heel, unstageable L89.610 Cellulitis of heel L03.119 Ischemic ulcer of ankle L97.309 Type 2 diabetes mellitus with hyperglycemia, with long-term current use of insulin E11.65; Z79.4 Diabetes mellitus type: type 2 Diabetes mellitus nursing home insulin use: with nursing home use Diabetes mellitus complication status: with hyperglycemia
[2024-05-30] MEDS: HYDROmorphone 1 mg/mL INJ 1 mL 0.2 MG IVP ×2 (09:29→16:15)
[2024-05-30] MEDS: vancomycin 1,250 MG/250 ML PIGGYBACK 200 MG IV (09:33)
--- NOTE | 2024-05-30 09:43 | P.CONIM_ITS ---
Providers/Reason For Consult 2 Consulting Physician/Specialty*: Tevin Gates MD/ Interventional cardiology Reason for Consult*: Chronic limb threatening ischemia Requesting Physician: Dr Jhaveri Attending Physician: Beth Lambert MD Primary Care Provider: Lety Banks APN History of Present Illness History of Present Illness Billie Govea is a 68 year old female with past medical history of atrial fibrillation, diabetes who was admitted to hospital with hypoglycemia. Patient has bilateral foot wounds. Found to have severe PAD bilaterally with ALMA on left lower extremity at 0.3 and of right lower extremity at 0.4. CTA also performed that shows severe multilevel peripheral artery disease. Patient complains of resting leg pains mostly in the calfs. She has history of CVA and is bedbound. Review of Systems 2 Const: Denies: fever(s) Card: Denies: chest pain Resp: Denies: dyspnea GI: Denies: abdominal pain Musc: Reports: extremity pain (Bilaterally leg pain. Left worse than right.) Neuro: Reports: weakness in extremities; Denies: headache(s) Medications/Allergies Home Medications Medication Instructions Recorded Confirmed Last Taken Type hydrocodone 10 mg-acetaminophen 1 tab PO Q8H PRN Pain 06/28/22 05/27/24 Unknown History 325 mg tablet pregabalin 100 mg capsule 100 mg PO BID 06/28/22 05/27/24 Unknown History escitalopram oxalate 10 mg tablet 15 mg PO QAM 04/25/23 05/27/24 Unknown History insulin NPH isoph U-100 human 100 See Rx Instructions SUBCUT DAILY 08/20/23 05/27/24 Unknown Rx unit/mL (3 mL) subcutaneous pen #15 mL (Humulin N NPH U-100 Insulin KwikPen) pen needle, diabetic 32 gauge x #120 ea 08/20/23 05/27/24 Unknown Rx (BD Jocelyn 2nd Gen Pen Needle) acetaminophen 325 mg tablet See Rx Instructions .Route 05/27/24 05/27/24 Unknown History .COMPLEX PRN pain or elevated temp apixaban 5 mg tablet (Eliquis) 5 mg PO DAILY 05/27/24 05/27/24 05/26/24 History aspirin 81 mg tablet,delayed 81 mg PO DAILY 05/27/24 05/27/24 05/26/24 History release atorvastatin 40 mg tablet (Lipitor) 40 mg PO BEDTIME 05/27/24 05/27/24 Unknown History bisacodyl 10 mg rectal suppository 10 mg [place] Q12H PRN Constipation 05/27/24 05/27/24 Unknown History (Dulcolax (bisacodyl)) collagenase clostridium histo. 250 See Rx Instructions .Route .COMPLEX 05/27/24 05/27/24 Unknown History unit/gram topical ointment (Santyl) dextran 70-hypromellose eye drops 1 drp ophthalmic (eye) Q4H PRN Dry 05/27/24 05/27/24 Unknown History in a dropperette (Artificial Tears Eyes (PF) drops in a dropperette) diltiazem HCl 180 mg 180 mg PO DAILY 05/27/24 05/27/24 Unknown History capsule,extended release 24 hr, controlled glucagon HCl 1 mg solution for 1 mg SUBCUT PRN PRN low blood sugar 05/27/24 05/27/24 Unknown History injection (Glucagon (HCl) Emergency Kit) insulin lispro 100 unit/mL See Rx Instructions .Route .COMPLEX 05/27/24 05/27/24 Unknown History subcutaneous pen levothyroxine 175 mcg tablet 175 mcg PO QAM 05/27/24 05/27/24 Unknown History loperamide 2 mg tablet See Rx Instructions .Route 05/27/24 05/27/24 Unknown History .COMPLEX PRN Diarrhea magnesium hydroxide 400 mg/5 mL 30 ml PO Q12H PRN Constipation 05/27/24 05/27/24 Unknown History oral suspension (Milk of Magnesia) mirtazapine 7.5 mg tablet 7.5 mg PO QAM 05/27/24 05/27/24 Unknown History omfanhqt-nsprrqhzg-djeibafq 3.5 1 drp ophthalmic (eye) BEDTIME 05/27/24 05/27/24 Unknown History mg/mL-10,000 unit/mL-0.1% eye drops pantoprazole 40 mg tablet,delayed 40 mg PO BID 05/27/24 05/27/24 Unknown History release prednisolone acetate 1 % eye See Rx Instructions .Route .COMPLEX 05/27/24 05/27/24 Unknown History drops,suspension prednisone 10 mg tablet 10 mg PO DAILY RA 05/27/24 05/27/24 Unknown History ropinirole 0.5 mg tablet 0.5 mg PO BID restless leg syndrom 05/27/24 05/27/24 Unknown History triamcinolone acetonide 0.5 % 1 applic topical PRN PRN Skin 05/27/24 05/27/24 Unknown History topical cream Irritation Allergies Allergy/AdvReac Type Severity Reaction Status Date / Time topiramate Allergy Severe ADR-Halluci Verified 08/20/23 13:27 nating Opioids - Morphine Analogues Allergy Intermediate Unresponsiv Verified 08/20/23 13:27 e Current Medications Generic Name Dose Route Start Last Admin Trade Name Freq PRN Reason Stop Dose Admin Hydrocodone Bitart/Acetaminophen 1 tab 05/27/24 09:48 05/30/24 06:18 Hydrocodone-Acetaminophen 5-325 Mg Tablet PO 1 tab Q4H PRN Administration MODERATE PAIN Apixaban 5 mg 05/27/24 21:00 05/30/24 07:55 Apixaban 5 Mg Tablet PO 5 mg BID@0900,2100 LANDEN Administration Aspirin 81 mg 05/28/24 09:00 05/30/24 07:54 Aspirin 81 Mg Ec Tablet PO 81 mg DAILY LANDEN Administration Atorvastatin Calcium 40 mg 05/27/24 21:00 05/29/24 20:32 Atorvastatin 40 Mg Tablet PO 40 mg BEDTIME LANDEN Administration Collagenase 1 applic 05/28/24 11:15 05/30/24 09:16 Collagenase Oint 30 Gm TOPICAL 1 applic DAILY LANDEN Administration Escitalopram Oxalate 15 mg 05/27/24 11:55 05/30/24 05:30 Escitalopram 10 Mg Tablet PO 15 mg QAM LANDEN Administration Hydromorphone HCl 0.2 mg 05/29/24 10:18 05/30/24 09:29 Hydromorphone 1 Mg/Ml Inj 1 Ml IVP 0.2 mg Q8H PRN Administration PAIN Piperacillin Sod/Tazobactam 50 mls @ 12.5 mls/hr 05/27/24 14:30 05/30/24 09:39 Sod 3.375 gm/ Sodium Chloride IV Infused Q8H LANDEN Infusion Vancomycin HCl 1,250 mg in 250 mls @ 166.667 mls/hr 05/27/24 22:00 05/30/24 09:33 Vancocin IV 200 mls/hr Q12H LANDEN Administration Insulin Human Lispro 0 unit 05/28/24 12:00 05/30/24 07:53 Insulin Lispro 100 Unit/1 Ml SUBCUT 2 unit WM&BEDTIME LANDEN Administration Protocol Levothyroxine Sodium 175 mcg 05/28/24 06:00 05/30/24 05:30 Levothyroxine 175 Mcg Tablet PO 175 mcg QAM LANDEN Administration Mirtazapine 7.5 mg 05/27/24 12:00 05/30/24 05:30 Mirtazapine 15 Mg Tablet PO 7.5 mg QAM LANDEN Administration Pantoprazole Sodium 40 mg 05/27/24 18:00 05/30/24 07:[address] 40 Mg Tablet PO 40 mg BID LANDEN Administration Pregabalin 100 mg 05/27/24 18:00 05/30/24 07:54 Pregabalin 100 Mg Capsule PO 100 mg BID LANDEN Administration Ropinirole HCl 0.5 mg 05/27/24 18:00 05/30/24 07:54 Ropinirole 0.25 Mg Tablet PO 0.5 mg BID LANDEN Administration PFSH Acute 2 PFSH: Medical History Atherosclerotic heart disease of [place] coronary artery without angina pectoris Cellulitis, unspecified Depression Stroke Urinary tract infection Mixed hyperlipidemia Hypothyroidism, unspecified High blood pressure Anxiety Thyroid disease Pain in left elbow History of fracture of arm Rash Debility Rheumatoid arthritis Family History Father Hypertension Brother Heart attack Sister Heart attack Brother Heart attack Mother Lung cancer Social History Smoking and tobacco/nicotine status: former use of tobacco/nicotine Alcohol intake: former Substance/Drug Use: never Vitals/I&O/Wt Last Vital Signs Temp 97.9 F 05/30/24 08:00 Pulse 113 H 05/30/24 08:00 Resp 16 05/30/24 09:29 BP 152/92 05/30/24 08:00 Pulse Ox 95 05/30/24 08:00 O2 Del Method Room Air 05/30/24 08:00 05/29/24 05/30/24 05/30/24 22:59 06:59 14:59 Intake Total 270 / 1052 300 / 1352 470 / 470 Output Total / 1975 1750 / 3725 800 / 800 Balance -530 / -923 -1450 / -2373 -330 / -330 Weight last 48 hrs Weight 198 lb 6.656 oz Weight 204 lb 9.6 oz Physical Exam 2 Narrative: GENERAL: Patient is alert, awake and oriented x3. [] NECK: No jugular vein distension. [] HEENT: No cyanosis. No icterus. No pallor. [] HEART: Regular S1 and S2. Grade 2/6 systolic murmur LUNGS: Clear to auscultate bilaterally. [] CENTRAL NERVOUS SYSTEM: Grossly nonfocal. [] EXTREMITIES: Lower extremities with 1+ edema bilaterally. Has dressings on foot. Pulses are not palpable. Lower extremities are warm. Urinary Catheter Management: Tong: Cath Placed During This Visit: yes Reason for Continuing Indwelling Catheter: Accurate Measurement of Urinary Output in Critically Ill Patients Urinary Catheter Date of Insertion: 05/27/24 Urinary Catheter Time of Insertion: 08:07 Data 05/31/24 04:28 05/31/24 04:28 Micro: Microbiology 05/27/24 07:50 Urine Culture - Final Urine Catheterized Enterococcus faecalis A&P Assessment and plan (1) Critical limb ischemia of both lower extremities: (2) CAD (coronary artery disease): (3) Mixed hyperlipidemia: (4) Peripheral artery disease: (5) Pressure ulcer, heel, left, unstageable: (6) Pressure ulcer of right heel, unstageable: (7) Ischemic ulcer of ankle: (8) Stroke: Plan Patient has significant bilateral resting leg pain. Also has nonhealing wounds on the feet. Presentation is consistent with chronic limb threatening ischemia. I discussed with patient all options including continued medical therapy as patient is not physically active. However she says she is in significant pain and wants attempt at revascularization to improve any symptoms Hold eliquis. Can start heparin/lovenox Plan for peripheral angiogram with possible intervention on Saturday morning Thank you for involving us with care of this patient. We will continue to follow. Please call with questions. Consult Attestations 2 Medical Necessity Statement: Care expected to cross 2 midnights. Coding Level of Care Code Acute Code for [facility] Fwd Diagnoses Critical limb ischemia of both lower extremities I70.223 CAD (coronary artery disease) I25.10 Mixed hyperlipidemia E78.2 Peripheral artery disease I73.9 Pressure ulcer, heel, left, unstageable L89.620 Pressure ulcer of right heel, unstageable L89.610 Ischemic ulcer of ankle L97.309 Stroke I63.9
[2024-05-30 10:52] LABS: Glucose Point of Care 189 mg/dL (70-110)
--- NOTE | 2024-05-30 16:02 | PM.PN ---
Subjective Subjective: No acute interim events. Evaluated by cardiology today. Plan for peripheral arterial intervention on Saturday. Tachycardic with heart rate 90-1 10. Medications: Reviewed: Yes Vitals/I&O/Wt Last Vital Signs Temp 98.9 F 05/30/24 12:00 Pulse 102 H 05/30/24 13:18 Resp 18 05/30/24 12:00 BP 155/94 05/30/24 12:00 Pulse Ox 93 05/30/24 12:00 O2 Del Method Room Air 05/30/24 12:00 05/30/24 05/30/24 05/30/24 06:59 14:59 22:59 Intake Total 300 / 1352 840 / 840 Output Total 1750 / 3725 800 / 800 Balance -1450 / -2373 40 / 40 Weight last 48 hrs Weight 90 kg Weight 92.805 kg Physical Exam Narrative: General: No acute distress, AO x3 HEENT: PERRLA, pupils bilaterally equal and reactive, pallors not present Chest: Normal vesicular breath sounds, no added sounds, equal good air entry bilaterally CVS: S1-S2 regular, no murmurs, no tachycardia, no gallops, no rubs Abdomen: Soft, nontender, no organomegaly, bowel sounds present Urinary Catheter Management: Tong: Cath Placed During This Visit: yes Reason for Continuing Indwelling Catheter: Accurate Measurement of Urinary Output in Critically Ill Patients Urinary Catheter Date of Insertion: 05/27/24 Urinary Catheter Time of Insertion: 08:07 Data 05/29/24 06:36 05/29/24 06:36 Micro: Microbiology 05/27/24 07:50 Urine Culture - Final Urine Catheterized Enterococcus faecalis NAME: Billie Govea [facility] #: [id number] LOC: [facility] #: [id number] AGE/SX: 68/F ROOM: 253 RE05/27/[address]: Beth Lambert MD : 1955 BED: 2 DIS: FAX #: STATUS: ADM IN TLOC: Spec #: [id number] Emily: 05/27/24 Status: COMP Req #: [id number] Recd: 05/27/24-[address]: Bonilla Ivan MD Src: Urine Cath SpDesc: Ordered: UC Procedure Result Verified Site Urine Culture Final 05/29/24-1608 Organism 1 Enterococcus faecalis [place] Count >100,000 CFU/ml DAY 2 E faecalis M.I.C. RX --------- ------ * Ampicillin <=2 S * Ciprofloxacin <=1 S * Levofloxacin <=1 S * Linezolid 2 S * Nitrofurantoin <=32 S * Penicillin 2 S * Tetracycline >8 R Vancomycin 2 S Gentamicin Synergy Screen <=500 S Daptomycin 2 S Enterococcus faecalis: Gram Pos Combo 33-MScan Gentamicin Synergy Screen S Urine Culture Preliminary (changed) 05/28/24-1118 DAY 1, RESULTS TO FOLLOW A&P Assessment and plan (1) Urinary tract infection: (2) Diabetic ulcer of foot associated with diabetes mellitus due to underlying condition, limited to breakdown of skin: (3) Cellulitis of heel: (4) Peripheral artery disease: (5) Hypoglycemia: (6) Diabetes mellitus: Qualifiers: Diabetes mellitus type: type 2 Diabetes mellitus termite control servicer insulin use: with assisted use Diabetes mellitus complication status: with hyperglycemia Qualified Code(s): E11.65 - Type 2 diabetes mellitus with hyperglycemia; Z79.4 - terminal gauger (current) use of insulin (7) Hypothyroidism, unspecified: Qualifiers: Hypothyroidism type: acquired Qualified Code(s): E03.9 - Hypothyroidism, unspecified (8) Sacral decubitus ulcer: (9) CAD (coronary artery disease): (10) Mixed hyperlipidemia: (11) Hypothermia: Plan Hypoglycemia: Due to accidental overdose of Lantus Blood sugar stable. Continue with D5 NS at 75 cc/h. Monitor blood sugars every 2 hour. Switch to regular diet. If blood sugars remain stable we will plan to discontinue IV fluids within next 24 hours. UTI: Appreciate UA. Follow-up urine culture, blood culture. Add bacterial antigen. For now continue with IV Zosyn. Bilateral heel ulcers with black eschar:In setting of severe bilateral PAD Will consult podiatry for further recommendations. ESR CRP mildly elevated. CT of the heel to rule out underlying collection. Continue with Zosyn as above. Continue with vancomycin. Check MRSA swab. If negative will discontinue vancomycin. Type 2 diabetes mellitus: Currently having hypoglycemia. Appreciate A1c. Hold off on antidiabetic medications for now. Sacral decubitus ulcer: Frequent repositioning. Will request medical records from the rehab so that can start on medications at home dose. Back pain: Patient states chronic. States she recently had a fall. At baseline she seems to be bedbound for stroke. Continue with IV Dilaudid 0.4 every 6 hours as needed. Hold off on Valium until confirmed from group home. [place] 5 mg every [address] lumbar spine. Will restart home medications when list available. CODE STATUS, DNR/DNI, confirmed with patient multiple times Eliquis for DVT prophylaxis Protonix for PUD prophylaxis. Plan for the day: No further episodes of hypoglycemia. Continue with insulin sliding scale. Depending on insulin requirement in next 24 hours we will plan to add Lantus. Follow-up culture results. For now continue with IV vancomycin and Zosyn. If cultures remain negative we will plan to finish a 5-day course of antibiotics overall. Wound care as per podiatry team. Appreciate podiatry recommendation. Appreciate CT abdomen pelvis with concerns for significant cystitis leading to inflammation at ureteral junctions. Patient would need to follow-up with urology as an outpatient for possible cystoscopy. No concerns for urinary obstruction for now. Renal function stable. Lower limb arterial duplex consistent with severe PAD. Plan for CT abdomen aorta with runoff. Plan to consult cardiology accordingly. Continue with aspirin, statin. Depending on the CT aorta result we will plan for adding cilostazol. Continue with home dose of pregabalin. Continue with [place] every 6 hours as needed. Change Dilaudid to every 8 hours as needed. Discharge plan: Discussed detail with the patient. She will be discharging to home to live with her son. Patient is agreeable for possible arrangement of home health for wound care. Case management alerted. 05/30/2024. CTA showing extensive atherosclerotic changes in bilateral lower extremities with multilevel areas of severe stenosis. Marked bladder wall thickening and perivesical fat infiltration suggestive of cystitis. Overall her heel ulceration related to vascular compromise, ischemic arterial ulcers. No active signs of cellulitis and underlying osteomyelitis at this present time. Discontinue IV piperacillin/tazobactam and vancomycin. Urine culture showing amp susceptible Enterococcus faecalis. De-escalate IV antibiotics to oral Augmentin 875 mg twice daily. Patient planned for peripheral arterial intervention on Saturday with cardiology. Discontinue Eliquis for procedure. Switch to Lovenox 1 mg/kg subcutaneously every 12 hours over the next 48 hours. Noted to be tachycardic, heart rate ranging 90-1 10. Resume Cardizem as patient takes at home. Will start with a dose of 30 mg p.o. every 6 hours and titrate as needed. Attestations Medical Necessity Statement*: Planned peripheral intervention on Saturday, change Eliquis to Lovenox, de-escalate antibiotics, resume home medication Cardizem. Coding Level of Care Code Acute Code for Chg Fwd High MDM includes number and complexity of problems actively addressed during encounter, amount and/or complexity of data reviewed/ordered and described risk of complication, morbidity or mortality of management as documented Diagnoses Urinary tract infection N39.0 Diabetic ulcer of foot associated with diabetes mellitus due to underlying condition, limited to breakdown of skin E08.621; L97.501 Cellulitis of heel L03.119 Peripheral artery disease I73.9 Hypoglycemia E16.2 Type 2 diabetes mellitus with hyperglycemia, with long-term current use of insulin E11.65; Z79.4 Diabetes mellitus type: type 2 Diabetes mellitus termite control servicer insulin use: with termite control servicer use Diabetes mellitus complication status: with hyperglycemia Acquired hypothyroidism E03.9 Hypothyroidism type: acquired Sacral decubitus ulcer L89.159 CAD (coronary artery disease) I25.10 Mixed hyperlipidemia E78.2 Hypothermia T68.XXXA
[2024-05-30] MEDS: dilTIAZem 30 mg Tablet PO ×2 (16:15→21:15)
[2024-05-30 17:02] LABS: Glucose Point of Care 217 mg/dL (70-110)
[2024-05-30] MEDS: amoxicillin-clav 875-125 mg Tablet 1 TAB PO (17:17)
[2024-05-30 21:01] LABS: Glucose Point of Care 207 mg/dL (70-110)
[2024-05-30] MEDS: atorvastatin 40 mg Tablet PO (21:13)
[2024-05-30] MEDS: enoxaparin 100 mg/mL Syringe 90 MG SUBCUT (21:13)
[2024-05-31] VITALS (12 sets, daily range): BP systolic 130–155; BP diastolic 79–87; PULSE 87–100; RESP 15–20; TEMP 36.7–38; O2SAT 91–95
[2024-05-31] MEDS: HYDROmorphone 1 mg/mL INJ 1 mL 0.2 MG IVP ×3 (00:26→23:41)
[2024-05-31] MEDS: dilTIAZem 30 mg Tablet PO ×4 (04:29→21:42)
[2024-05-31] MEDS: HYDROcodone-acetaminophen 5-325 mg Tablet 1 TAB PO ×3 (04:29→20:01)
[2024-05-31 04:46] LABS: Basophils # 0.1 10^3/uL (0.0-0.1); Basophils % 1.1 %; Eosinophils # 0.3 10^3/uL (0.0-0.8); Eosinophils % 2.8 %; Hematocrit 26.8 % (36-47); Lymphocytes # 4.2 10^3/uL (0.8-4.8); Lymphocytes % 41.7 %; Mean Corpuscular HGB Conc 29.1 g/dL (30-55); Mean Corpuscular Hemoglobin 26.7 pg (27-33); Mean Corpuscular Volume 91.8 fl (85-98); Mean Platelet Volume 10.7 fL (7.4-10.4); Monocytes # 0.6 10^3/uL (0.2-0.9); Monocytes % 6.4 %; Neutrophils # 4.77 10^3/uL (1.8-7.7); Neutrophils % 47.8 %; Nucleated Red Blood Cells % 0 %; Platelet Count 307 10^3/cmm (157-399); Red Blood Count 2.92 10^6/uL (3.85-5.65); White Blood Count 9.99 10^3/uL (3.29-11.43)
[2024-05-31 05:04] LABS: Alanine Aminotransferase < 5 U/L (0-33); Albumin Level 2.7 g/dL (3.5-5.2); Alkaline Phosphatase 98 U/L (35-105); Blood Urea Nitrogen 12 mg/dL (8-23); Calcium 8.6 mg/dL (8.5-10.5); Carbon Dioxide 21 mmol/L (22-29); Chloride 105 mmol/L (98-107); Creatinine Clr Calc Pharmacy 73.6454; Glomerular Filtration Rate 83.7 mL/min (90-130); Glucose 176 mg/dL (65-115); Osmolality Calculated 290 mOsm/kg (285-295); Sodium 138 mmol/L (136-145); Total Bilirubin 0.3 mg/dL (0.15-1.2); Total Protein 6.7 g/dL (6.6-8.7)
[2024-05-31 05:05] LABS: Anion Gap 16.4 (5-19); Aspartate Amino Transferase 13 U/L (0-32); Potassium 4.4 mmol/L (3.5-5.1)
[2024-05-31] MEDS: escitalopram 10 mg Tablet 15 MG PO (05:11)
[2024-05-31] MEDS: levothyroxine 175 mcg Tablet PO (05:12)
[2024-05-31] MEDS: mirtazapine 15 mg Tablet 7.5 MG PO (05:12)
[2024-05-31 06:33] LABS: Glucose Point of Care 172 mg/dL (70-110)
--- NOTE | 2024-05-31 06:55 | PC.NURSE ---
pt verbalized that pain pill does not work and all she wants is the dulaudid.
[2024-05-31] MEDS: ropinirole 0.25 mg Tablet 0.5 MG PO ×2 (08:24→17:23)
[2024-05-31] MEDS: pregabalin 100 mg Capsule PO ×2 (08:24→17:23)
[2024-05-31] MEDS: amoxicillin-clav 875-125 mg Tablet 1 TAB PO ×2 (08:24→17:23)
[2024-05-31] MEDS: pantoprazole DR 40 mg Tablet PO ×2 (08:25→17:23)
[2024-05-31] MEDS: aspirin 81 mg EC Tablet PO (08:25)
[2024-05-31] MEDS: insulin lispro 100 unit/1 mL SUBCUT ×4 (08:25→21:01)
[2024-05-31] MEDS: enoxaparin 100 mg/mL Syringe 90 MG SUBCUT ×2 (08:26→20:02)
--- NOTE | 2024-05-31 10:50 | P.PN_ITS ---
Subjective 2 Subjective: Patient continues having resting bilateral leg pain. No chest pain. Vitals/I&O/Wt Last Vital Signs Temp 98.0 F 05/31/24 08:00 Pulse 90 05/31/24 08:00 Resp 15 05/31/24 08:00 BP 130/79 05/31/24 08:00 Pulse Ox 95 05/31/24 08:00 O2 Del Method Room Air 05/31/24 08:00 05/30/24 05/31/24 05/31/24 22:59 06:59 14:59 Intake Total 270 / 1110 440 / 440 Output Total 700 / 1500 825 / 2325 Balance -430 / -390 -825 / -1215 440 / 440 Weight last 48 hrs Weight 198 lb 6.656 oz Weight 198 lb 6.656 oz Physical Exam 2 Narrative: GENERAL: Patient is alert, awake and oriented x3. [] NECK: No jugular vein distension. [] HEENT: No cyanosis. No icterus. No pallor. [] HEART: Regular S1 and S2. Grade 2/6 systolic murmur LUNGS: Clear to auscultate bilaterally. [] CENTRAL NERVOUS SYSTEM: Grossly nonfocal. [] EXTREMITIES: Lower extremities with 1+ edema bilaterally. Has dressings on foot. Pulses are not palpable. Lower extremities are warm. Urinary Catheter Management: Tong: Cath Placed During This Visit: yes Reason for Continuing Indwelling Catheter: Accurate Measurement of Urinary Output in Critically Ill Patients Urinary Catheter Date of Insertion: 05/27/24 Urinary Catheter Time of Insertion: 08:07 Data 06/01/24 04:54 06/01/24 04:54 A&P Assessment and plan (1) Critical limb ischemia of both lower extremities: (2) CAD (coronary artery disease): (3) Mixed hyperlipidemia: (4) Peripheral artery disease: (5) Pressure ulcer, heel, left, unstageable: (6) Pressure ulcer of right heel, unstageable: (7) Ischemic ulcer of ankle: (8) Stroke: Plan Patient continues on resting bilaterally. Wants to proceed with peripheral angiogram with possible intervention. She understands high risk nature of the procedure given multiple levels of occlusions. Keep holding Eliquis. Can continue with Lovenox for now. N.p.o. after midnight. Thank you for involving us with care of this patient. We will continue to follow. Please call with questions. Attestations 2 Medical Necessity Statement*: Care expected to cross 2 midnights. Coding Level of Care Code Acute Code for g Fwd Diagnoses Critical limb ischemia of both lower extremities I70.223 CAD (coronary artery disease) I25.10 Mixed hyperlipidemia E78.2 Peripheral artery disease I73.9 Pressure ulcer, heel, left, unstageable L89.620 Pressure ulcer of right heel, unstageable L89.610 Ischemic ulcer of ankle L97.309 Stroke I63.9
[2024-05-31 10:52] LABS: Glucose Point of Care 153 mg/dL (70-110)
[2024-05-31] MEDS: collagenase oint 30 gm 1 APPLIC TOPICAL (10:57)
--- NOTE | 2024-05-31 11:30 | PC.NURSE ---
Pt heel dressing changes performed. Pt tolerated well.
--- NOTE | 2024-05-31 12:35 | PC.NURSE ---
PRN Medication: PRN Dilaudid 0.2mL was given due to pt c/o 10/10 pain.
[2024-05-31] MEDS: diphenhydrAMINE 50 mg Capsule PO (13:40)
[2024-05-31] MEDS: sodium chloride 0.9% 1,000 ML 50 ML IV (13:40)
--- NOTE | 2024-05-31 14:24 | P.PN_ITS ---
Subjective 2 Subjective: No acute events overnight. Patient has remained hemodynamically stable and afebrile. Seen with brother at bedside. Patient states she is feeling better. Denies any nausea, vomiting, headache. Medications: Reviewed: Yes Vitals/I&O/Wt Last Vital Signs Temp 98.4 F 05/31/24 12:00 Pulse 87 05/31/24 12:00 Resp 16 05/31/24 12:35 BP 148/81 05/31/24 12:00 Pulse Ox 94 05/31/24 12:00 O2 Del Method Room Air 05/31/24 12:00 05/30/24 05/31/24 05/31/24 22:59 06:59 14:59 Intake Total 270 / 1110 990 / 990 Output Total 700 / 1500 825 / 2325 1000 / 1000 Balance -430 / -390 -825 / -1215 -10 / -10 Weight last 48 hrs Weight 90 kg Weight 90 kg Physical Exam 2 Const: COMMON NORMALS: no acute distress and patient oriented x3 HENMT: COMMON NORMALS: normocephalic HEAD & SCALP: normocephalic Eye: COMMON NORMALS: Equal, round and reactive pupils present PUPIL: Yes Equal, round and reactive pupils present OTHER: Left eye corneal clouding, cataract Neck/C-Spine: COMMON NORMALS: no JVD Resp: COMMON NORMALS: normal respiratory effort, No retractions, No use of accessory muscles and clear to auscultation bilaterally AUSCULTATION: clear to auscultation bilaterally Cardio: COMMON NORMALS: no JVD, regular rate, regular rhythm, S1 normal heart sound present and S2 normal heart sound present RATE: regular rate RHYTHM: regular rhythm HEART SOUNDS: S1 normal heart sound present and S2 normal heart sound present GI: COMMON NORMALS: Normal to inspection, nondistended, normoactive bowel sounds present, Soft to palpation and non-tender PALPATION: Yes Soft to palpation Extremity: COMMON NORMALS: no pedal edema Neuro: COMMON NORMALS: patient oriented x3 and CN's II-XII intact bilaterally OTHER: Bilateral lower extremity weakness, Psych: COMMON NORMALS: mental status grossly normal Skin: OTHER: Urinary Catheter Management: Tong: Cath Placed During This Visit: yes Reason for Continuing Indwelling Catheter: Accurate Measurement of Urinary Output in Critically Ill Patients Urinary Catheter Date of Insertion: 05/27/24 Urinary Catheter Time of Insertion: 08:07 Data 05/31/24 04:28 05/31/24 04:28 A&P Assessment and plan (1) Complicated UTI (urinary tract infection): (2) Peripheral artery disease: (3) Diabetic ulcer of foot associated with diabetes mellitus due to underlying condition, limited to breakdown of skin: (4) Cellulitis of heel: (5) Hypoglycemia: (6) Urinary retention: (7) Diabetes mellitus: Qualifiers: Diabetes mellitus type: type 2 Diabetes mellitus medical claims manager insulin use: with custodial use Diabetes mellitus complication status: with hyperglycemia Qualified Code(s): E11.65 - Type 2 diabetes mellitus with hyperglycemia; Z79.4 - instrument man (current) use of insulin (8) Hypothyroidism, unspecified: Qualifiers: Hypothyroidism type: acquired Qualified Code(s): E03.9 - Hypothyroidism, unspecified (9) Sacral decubitus ulcer: (10) CAD (coronary artery disease): (11) Mixed hyperlipidemia: (12) Hypothermia: Plan Hypoglycemia: Due to accidental overdose of Lantus Blood sugar stable. Continue with D5 NS at 75 cc/h. Monitor blood sugars every 2 hour. Switch to regular diet. If blood sugars remain stable we will plan to discontinue IV fluids within next 24 hours. UTI: Appreciate UA. Follow-up urine culture, blood culture. Add bacterial antigen. For now continue with IV Zosyn. Bilateral heel ulcers with black eschar:In setting of severe bilateral PAD Will consult podiatry for further recommendations. ESR CRP mildly elevated. CT of the heel to rule out underlying collection. Continue with Zosyn as above. Continue with vancomycin. Check MRSA swab. If negative will discontinue vancomycin. Type 2 diabetes mellitus: Currently having hypoglycemia. Appreciate A1c. Hold off on antidiabetic medications for now. Sacral decubitus ulcer: Frequent repositioning. Will request medical records from the rehab so that can start on medications at home dose. Back pain: Patient states chronic. States she recently had a fall. At baseline she seems to be bedbound for stroke. Continue with IV Dilaudid 0.4 every 6 hours as needed. Hold off on Valium until confirmed from long term. Reedley 5 mg every [address] lumbar spine. Will restart home medications when list available. CODE STATUS, DNR/DNI, confirmed with patient multiple times Eliquis for DVT prophylaxis Protonix for PUD prophylaxis. Discharge plan: Discussed detail with the patient. She will be discharging to home to live with her son. Patient is agreeable for possible arrangement of home health for wound care. Case management alerted. Plan for the day: Appreciate cardiology recommendations. Plan for peripheral angiogram and possible angioplasty in AM. Continue full dose anticoagulation with Lovenox 1 mg/kg body weight every 12 hourly for now. Plan to transition to Eliquis on discharge. Continue with baby aspirin and statin. N.p.o. after midnight. Appreciate podiatry recommendations. Continue wound care dressing. Appreciate urine cultures for Enterococcus faecalis. Continue with Augmentin for now to finish off the 7-day course overall. Patient will be discharged with urinary catheter given concerns for urinary retention on admission. Will plan to follow-up as an outpatient with urologist. Continue other chronic home medications. Continue with Reedley every 4 hour, pregabalin twice daily. Blood sugars have remained stable. No episodes of hypoglycemia. Transition to medium dose protocol insulin from low-dose. Attestations 2 Medical Necessity Statement*: Requires further hospitalization for management of severe PAD leading to rest pain requiring angiogram and angioplasty, UTI with concerns for urinary retention Diagnoses Complicated UTI (urinary tract infection) N39.0 Peripheral artery disease I73.9 Diabetic ulcer of foot associated with diabetes mellitus due to underlying condition, limited to breakdown of skin E08.621; L97.501 Cellulitis of heel L03.119 Hypoglycemia E16.2 Urinary retention R33.9 Type 2 diabetes mellitus with hyperglycemia, with long-term current use of insulin E11.65; Z79.4 Diabetes mellitus type: type 2 Diabetes mellitus medical claims manager insulin use: with custodial use Diabetes mellitus complication status: with hyperglycemia Acquired hypothyroidism E03.9 Hypothyroidism type: acquired Sacral decubitus ulcer L89.159 CAD (coronary artery disease) I25.10 Mixed hyperlipidemia E78.2 Hypothermia T68.XXXA
--- NOTE | 2024-05-31 15:15 | PC.NURSE ---
PRN Medication: Pt given PRN Haskins for c/o pain.
[2024-05-31] MEDS: acetaminophen 325 mg Tablet 650 MG PO (16:23)
[2024-05-31 17:29] LABS: Glucose Point of Care 208 mg/dL (70-110)
[2024-05-31] MEDS: atorvastatin 40 mg Tablet PO (20:01)
[2024-05-31 20:42] LABS: Glucose Point of Care 203 mg/dL (70-110)
[2024-06-01] VITALS (13 sets, daily range): BP systolic 96–148; BP diastolic 65–91; PULSE 87–98; RESP 12–26; TEMP 36.4–36.8; O2SAT 88–98
[2024-06-01] MEDS: HYDROcodone-acetaminophen 5-325 mg Tablet 1 TAB PO (03:41)
--- NOTE | 2024-06-01 05:43 | XACV_ITS ---
Ht: 160 cm Wt: 90 kg BSA: 2.04 m2 Any Known Allergies: Other Gender: Female : 1955 Exam Type: Invasive Peripheral Vascular Procedure(s): Procedure Description: Peripheral Cath Diagnostic Procedure Procedure Description: Abdominal aortic angiography Procedure Description: Iliac arterial aortic angiography Procedure Description: Lower extremities' angiography Procedure Description: Peripheral vascular Intervention Procedure Description: PV Balloon Exam Priority: Routine Abdominal Diagnostic Findings Distal abdominal aorta is patent. Lower Extremity Diagnostic Findings INDICATION: Chronic limb threatening ischemia of bilateral lower extremities. Left lower extremity:Left common iliac artery is patent. Left external iliac artery is patent. Left internal iliac artery is patent. Left common femoral artery is patent. Left profunda artery is patent. Left SFA has mild luminal irregularities. Left popliteal artery is totally occluded. Below the knee blood supply is through collateral blood flow. Posterior tibial artery and peroneal artery are totally occluded. Anterior tibial artery is 100% occluded and reconstitutes via collaterals.. Right lower extremity: Right common iliac artery is patent. Right external iliac artery is patent. Right common femoral artery is patent. Right profunda artery is patent. Right SFA is patent. Right popliteal artery has severe 90% stenosis. Anterior tibial artery is totally occluded proximally with reconstitution via collaterals. Right posterior tibial artery is totally occluded. Right peroneal artery is totally occluded and reconstitutes via collaterals in the mid segment. . Left Mid-longitudinal Anterior Tibial Artery: 100% stenosis. Lower Extremity Interventional Findings Left popliteal artery: 100% stenosis. Left Mid-longitudinal Anterior Tibial Artery: 100% stenosis treated with AB ARMADA 14 OTW [id number] and AB ARMADA 14 OTW [id number]. Procedure detail: After diagnostic imaging, we switched short sheath to long 45 cm sheath which went up and over into the left external iliac artery. Using Glidewire and seeker support catheter, we crossed totally occluded popliteal artery. We then switched Glidewire to a long run-through wire to navigate it better into totally occluded anterior tibial artery. We dilated the popliteal artery into anterior tibial artery serially with 3.0x200 and 3.9u907il balloons. This established flow into anterior tibial artery. At this time final angiogram was performed showing brisk inline flow to the foot. Long sheath was switched to a short sheath for removal later. Patient left the Nanoscience Technician in stable condition.. Conclusions Severe bilateral peripheral artery disease. Total occlusion of left popliteal artery and anterior tibial artery status post successful revascularization with balloon angioplasty.. Left popliteal artery and Left Mid-longitudinal Anterior Tibial Artery occlusions were treated with two Balloon. Recommendations Dual antiplatelet therapy with aspirin and plavix. Statin therapy. Staged revascularization of right lower extremity in 4 weeks. Outpatient cardiology follow up in 2 weeks. Hemodynamic Data Phase:Rest AO : 164.0 / 82.0 ( 116.0 ) @ 6:49:00 AM 148.0 / 87.0 ( 115.0 ) @ 6:54:00 AM 171.0 / 88.0 ( 123.0 ) @ 7:34:00 AM 154.0 / 78.0 ( 109.0 ) @ 7:44:00 AM Access Site Site: Right Femoral artery Sheath Size: 6 Fr Hemost... Method: Suture Hemost... Success: Successful Procedure Details Findings Procedure Consent Obtained. Pre-Procedure Time Out. Identified patient by full name and date of as verbalized by the patient/guarantor. Does the consent match the physician's order: Yes. Accurate & Complete Informed Consent: Yes. Inpatient/Outpatient History & Physical on Chart: Yes. If H&P is completed, is and addenduem needed: No. Visualize and Verify Site with Patient/Guarantor: N/A. Relevant Radiology Images available: Yes. The risks, benefits, and alternatives of sedation and/or procedure were discussed by physician. The patient agrees to continue. Procedure started. Correct patient, site and procedure confirmed by cath team. Current diagnosis: PVD. PERRLA. Strong, equal hand development trainer bilaterally. Lungs clear x 5 lobes. IV Site on Arrival: 22 gauge in the left hand. IV Fluids: 0.9% NaCl at KVO. 900 mL infused prior to greens laborer. Pre Procedural Pulses: bilateral dorsalis pedis was Doppled. Pre Procedural Pulses: bilateral posterior tibial was Doppled. Oxygen started at 2liters/min via nasal canula. bilateral groins was prepped with chloroprep then draped in the usual sterile fashion. Physician notified. Patient's family unavailable. Equipment: 6F - Femoral. Cardiac Cath Pack. ACIST Manifold Kit Model BT 2000. Heparinized Saline (2 units/mL), 1000 mL bag. Kit, Micropuncture. Physician arrived. Baseline sample Acquired. HR: 89 BPM. Physician scrubbed in. Immediate Pre-Procedure Time Out. Correct Patient: Yes; Correct Procedure: Yes; Correct Site: Yes; Correct Patient Position: Yes; Correct Supplies: Yes; Dried Flammable Prep: Yes; Blood Products Available: N/A;. Lidocaine 1% infiltrated to the right groin. Arterial access obtained with micropuncture set. Unable to thread micropuncture wire, wire and needle out. Manual pressure held by Dr. Gates. Lidocaine 1% infiltrated to the right groin. Arterial access obtained with micropuncture set. A 5Fr UF catheter in over wire. Pigtail postioned above the bifurcation of the iliacs. Aortagram performed @ 10 mL/sec for a total of 30 mL. 260cm Stiff Angled glidewire in through the UF catheter. UF catheter advanced to the left iliac. Glidewire out. Left common iliac selected and arteriogram with runoff performed @ 10 mL/sec for a total of 30 mL in DSA. UF Catheter removed over the glide wire. Seeker support catheter in over the glidewire and advanced to the left popliteal. Glidewire out. Glidewire in. Glidewire out. Hand injection performed through the seeker. Glidewire in. Glidewire out. 0.014 x 300cm Runthrough guidewire in through the seeker and advanced past the lesion in the left AT. Seeker out. Inflation number : 1 A ARMMAC 14 OTW [id number] was prepped and advanced across the Anterior Tibial, Left , then inflated to 8 STELLA for 1:04 seconds. Balloon out over wire. Runthrough wire out. Trek 4.0mm x 30mm balloon in, unable to cross. Removed intact. Seeker in over the glidewire. Seeker out. Sheath upsized to a 6 Fr. Left common iliac selected and arteriogram with runoff performed @ 10 mL/sec for a total of 30 mL. Glidewire out. A 2nd 0.014 x 300cm Runthrough guidewire in through the seeker and advanced past the lesion in the left AT. Inflation number : 2 A ARMMAC 14 OTW [id number] was prepped and advanced across the Anterior Tibial, Left , then inflated to 8 STELLA for 1:02 seconds. Balloon out over wire. Left common iliac selected and arteriogram with runoff performed @ 10 mL/sec for a total of 30 mL in DSA. Left common iliac selected and arteriogram with runoff performed @ 10 mL/sec for a total of 30 mL. Runthrough guidewire out. Sheath upsized to a 6 Fr. ACT drawn. Results 215 seconds. Therapeutic limits - pre-heparin administration 90-150 seconds and monitoring heparin during a vascular procedure >250 seconds. Sheath injected in Right common femoral artery and runoff performed. Dr. Gates scrubbed out. A Suture was successful obtaining hemostatsis at the Right Femoral artery insertion site. Sheath(s) sutured into position with 2-0 silk and sterile 4x4's and Op-site applied over the site. No oozing or signs and symptoms of hematoma noted. Arterial sheath flushed and connected to tranducer and pressure bag with heparinized saline. Post Procedure: Pulses reassessed and unchanged. PERRLA. Strong, equal hand development trainer bilaterally. No VTE prophylaxis required. Medication's Wasted: Lidocaine 1% = 5 mL. Medication's Wasted: Heparin = 2000 units. Total IV fluids: 100 mL. Post-op diagnosis: Total occlusion of the left popliteal and Proximal AT S/P Balloon angiolasty of the left AT. Complications: none. Estimated blood loss: 5mL-10mL. Responsiveness - Normal response to verbal stimuli; alert and oriented, PERRLA. Airway - Unaffected, no intervention required; spontaneous ventilation. Circulation: W/N/L, pulses unchanged. Nausea/Vomiting: No. Procedure completed. Patient transferred by bed to 1st floor. Vital chart was stopped. Procedure Medications Start: 6:29 AM Stop: 6:29 AM Medication: Versed Amount: 1 mg Route: I.V. Start: 6:29 AM Stop: 6:29 AM Medication: Fentanyl Amount: 25 mcg Route: I.V. Start: 6:38 AM Stop: 6:38 AM Medication: Benadryl Amount: 25 mg Route: I.V. Start: 6:52 AM Stop: 6:52 AM Medication: Versed Amount: 1 mg Route: I.V. Start: 7:01 AM Stop: 7:01 AM Medication: Fentanyl Amount: 25 mcg Route: I.V. Start: 7:09 AM Stop: 7:09 AM Medication: Heparin Amount: 2000 units Route: I.V. Start: 7:10 AM Stop: 7:10 AM Medication: Versed Amount: 1 mg Route: I.V. Start: 7:10 AM Stop: 7:10 AM Medication: Fentanyl Amount: 50 mcg Route: I.V. Start: 7:14 AM Stop: 7:14 AM Medication: Heparin Amount: 2000 units Route: I.V. Start: 7:19 AM Stop: 7:19 AM Medication: Fentanyl Amount: 50 mcg Route: I.V. Start: 7:38 AM Stop: 7:38 AM Medication: Heparin Amount: 1000 units Route: I.V. Start: 7:38 AM Stop: 7:38 AM Medication: Versed Amount: 0.5 mg Route: I.V. Start: 7:44 AM Stop: 7:44 AM Medication: Versed Amount: 0.5 mg Route: I.V. Start: 8:01 AM Stop: 8:01 AM Medication: Plavix Amount: 300 mg Route: P.O. Start: 8:01 AM Stop: 8:01 AM Medication: Aspirin Amount: 81 mg Route: P.O. I, the attending physician, have reviewed and verified all procedure medications. Yes, all medications given per verbal order History/Risk Factors Hypertension: Yes Dyslipidemia: Yes Peripheral Arterial Disease (PAD): Yes Obesity: Yes Renal Disease: No Tobacco Use: Former Prior Interventions PCI: No CABG: No Valve Surgery: No Report Signatures Finalized by Tevin Gates MD on 06/08/2024 12:00 PM
[2024-06-01 05:52] LABS: Alanine Aminotransferase < 5 U/L (0-33); Albumin Level 2.8 g/dL (3.5-5.2); Alkaline Phosphatase 98 U/L (35-105); Anion Gap 14.5 (5-19); Aspartate Amino Transferase 9 U/L (0-32); Blood Urea Nitrogen 13 mg/dL (8-23); Calcium 8.6 mg/dL (8.5-10.5); Carbon Dioxide 22 mmol/L (22-29); Chloride 107 mmol/L (98-107); Creatinine Clr Calc Pharmacy 73.7808; Globulin 3.8 g/dL (1.3-4.6); Glucose 137 mg/dL (65-115); Osmolality Calculated 292 mOsm/kg (285-295); Potassium 3.5 mmol/L (3.5-5.1); Sodium 140 mmol/L (136-145); Total Bilirubin 0.3 mg/dL (0.15-1.2); Total Protein 6.6 g/dL (6.6-8.7)
[2024-06-01 05:56] LABS: Basophils # 0.1 10^3/uL (0.0-0.1); Basophils % 1.3 %; Eosinophils # 0.3 10^3/uL (0.0-0.8); Eosinophils % 4.1 %; Hematocrit 27.5 % (36-47); Lymphocytes # 3.9 10^3/uL (0.8-4.8); Lymphocytes % 46.6 %; Mean Corpuscular HGB Conc 29.5 g/dL (30-55); Mean Corpuscular Hemoglobin 26.7 pg (27-33); Mean Corpuscular Volume 90.8 fl (85-98); Mean Platelet Volume 10.8 fL (7.4-10.4); Monocytes # 0.7 10^3/uL (0.2-0.9); Monocytes % 7.8 %; Neutrophils # 3.31 10^3/uL (1.8-7.7); Nucleated Red Blood Cells % 0 %; Platelet Count 325 10^3/cmm (157-399); Red Blood Count 3.03 10^6/uL (3.85-5.65); Red Cell Distribution Width 18.6 % (12.1-15.1)
[2024-06-01] MEDS: mirtazapine 15 mg Tablet 7.5 MG PO (06:01)
[2024-06-01] MEDS: dilTIAZem 30 mg Tablet PO ×4 (06:01→21:33)
[2024-06-01] MEDS: levothyroxine 175 mcg Tablet PO (06:02)
[2024-06-01] MEDS: escitalopram 10 mg Tablet 15 MG PO (06:02)
--- NOTE | 2024-06-01 06:31 | W.PM.OPSUD ---
Surgery/Procedure H&P Update DATE OF PROCEDURE: June 01, 2024 DATE H&P PERFORMED: 05/30/24 H&P UPDATE INFORMATION: I have reviewed H&P completed within last 30 days, I have examined patient prior to procedure and No changes to prior documentation PREOP DIAGNOSIS: Chronic limb threatening ischemia of bilateral lower extremities PRIMARY INDICATION FOR PROCEDURE: Chronic limb threatening ischemia of bilateral lower extremities PLANNED PROCEDURE: Peripheral angiogram with possible percutaneous intervention PATIENT REASSESSED PRIOR TO SEDATION, WITH NO CHANGE NOTED: Yes PHYSICAL EXAM: alert, oriented x 3, clear to auscultation bilaterally and regular rate & rhythm AIRWAY EVAL/ANESTHESIA PLAN: normal airway, ASA III, Local Anesthesia, Risks, benefits & alternatives of sedation and/or procedure discussed and Patient agrees to continue as planned ADDITIONAL INFORMATION: Moderate sedation
--- NOTE | 2024-06-01 08:01 | PM.PROC ---
Procedure Note: Date of procedure: 06/01/24 Pre-procedure diagnosis: Critical limb ischemia Post-procedure diagnosis: other (Chronic limb threatening ischemia of bilateral lower extremities) Procedure: Left lower extremity total occlusion of popliteal artery, posterior tibial artery and peroneal arteries. Subtotal occlusion of anterior tibial artery. Successful revascularization with balloon angioplasty of popliteal artery and anterior tibial artery. Has good one-vessel runoff. Right lower extremity has a severe popliteal artery and below the knee disease. Will staged procedure in 2 weeks. Aspirin and Plavix. Resume eliquis tomorrow. Performing Provider: Tevin Gates Estimated blood loss (mL): 10 Complications: None Condition: stable Disposition: floor Coding Level of Care Code Acute Code for Chg Fwd
[2024-06-01] MEDS: ropinirole 0.25 mg Tablet 0.5 MG PO ×2 (09:01→17:09)
[2024-06-01] MEDS: pregabalin 100 mg Capsule PO ×2 (09:02→17:09)
[2024-06-01] MEDS: amoxicillin-clav 875-125 mg Tablet 1 TAB PO ×2 (09:02→17:09)
[2024-06-01] MEDS: pantoprazole DR 40 mg Tablet PO ×2 (09:02→17:09)
[2024-06-01] MEDS: aspirin 81 mg EC Tablet PO (09:02)
[2024-06-01] MEDS: HYDROmorphone 1 mg/mL INJ 1 mL 0.2 MG IVP ×2 (09:57→18:25)
[2024-06-01 10:55] LABS: Partial Thromboplastin Time 50.5 SECONDS (23.9-36.7)
--- NOTE | 2024-06-01 11:45 | P.PN_ITS ---
<Statement entered by Tevin Gates M.D - 06/02/24 10:24> Patient was evaluated and cared for in conjunction with an advanced practice practitioner. I personally examined the patient and reviewed the chart and all pertinent data including imaging, telemetry, and laboratory results. I discussed the patient in detail with the advanced practice practitioner. Please see their note for complete progress note, results and agreed upon plan of care for the patient. Patient had successful revascularization of left lower extremity with balloon angioplasty of totally occluded popliteal artery and anterior tibial artery. Has good single-vessel runoff to the foot now. Post sheath pull developed hematoma. Stable. GENERAL: Patient is alert and oriented HEART: Regular S1 and S2 LUNGS: Diminished air entry bilaterally. EXTREMITIES: Lower extremities with 1+ edema Assesment and Plan (1) Critical limb ischemia of both lower extremities: (2) CAD (coronary artery disease): (3) Mixed hyperlipidemia: (4) Peripheral artery disease: (5) Pressure ulcer, heel, left, unstageable: (6) Pressure ulcer of right heel, unstageable: (7) Ischemic ulcer of ankle: (8) Stroke: Status post successful revascularization of left lower extremity with balloon angioplasty of totally occluded popliteal artery and anterior tibial artery. Has good single-vessel runoff to the foot now. Continue aspirin and Plavix. Developed hematoma post sheath pull. It is stable. Ultrasound ordered to rule out pseudoaneurysm. Monitor H&H. Transfuse as needed. Keep holding Eliquis for now. Will plan on staged percutaneous revascularization of right lower extremity in 4 weeks. Thank you for involving us with care of this patient. Will continue to follow. Please call with questions. Subjective 2 Subjective: Patient seen status post balloon angioplasty of the left popliteal and anterior tibial. She has a good 2+ biphasic pulse in the left lower anterior tibial. She denies any complaints at this time. Foot is warm. Good capillary refill. Medications: Reviewed: Yes Vitals/I&O/Wt Last Vital Signs Temp 97.9 F 06/01/24 02:26 Pulse 87 06/01/24 10:00 Resp 12 06/01/24 10:00 BP 143/91 06/01/24 10:00 Pulse Ox 97 06/01/24 02:26 O2 Del Method Room Air 06/01/24 02:26 05/31/24 06/01/24 06/01/24 22:59 06:59 14:59 Intake Total 540 / 1530 0 / 1530 1000 / 1000 Output Total 1325 / 2325 1000 / 3325 1200 / 1200 Balance -785 / -795 -1000 / -1795 -200 / -200 Weight last 48 hrs Weight 199 lb 1.6 oz Weight 198 lb 6.656 oz Physical Exam 2 Narrative: General: No apparent distress, healthy appearing, well nourished HENMT: normoceophalic Neck: No carotid bruit bilaterally Muskuloskeletal: Full ROM Lymphatic: no lymphedema noted Respiratory: Normal respiratory effort, clear to auscultation bilaterally throughout all lung sarmiento, no use of accessory muscles Cardio: No JVD, regular rate, regular rhythm, S1 S2 normal, no murmurs, peripheral pulses 2+ radial palpated bilaterally, 2+ left DP biphasic, right DP dopplered GI: Normal to inspection, nondistended Extremities: Bilateral wounds present currently wrapped. She has wound to left heel, right heel and left ankle Neuro: Alert and oriented x4, no focal motor deficits Psych: Affect normal, denies suicidal ideation, mental status grossly normal Skin: as stated above Urinary Catheter Management: Tong: Cath Placed During This Visit: yes Reason for Continuing Indwelling Catheter: Acute Urinary Retention or Obstruction Urinary Catheter Date of Insertion: 05/27/24 Urinary Catheter Time of Insertion: 08:07 Data 06/01/24 04:54 06/01/24 04:54 Micro: Microbiology 05/27/24 08:03 Blood Culture - Final Blood NO GROWTH AFTER 5 DAYS 05/27/24 07:55 Blood Culture - Final Blood NO GROWTH AFTER 5 DAYS A&P Assessment and plan (1) Critical limb ischemia of both lower extremities: (2) CAD (coronary artery disease): (3) Mixed hyperlipidemia: (4) Peripheral artery disease: (5) Pressure ulcer, heel, left, unstageable: (6) Pressure ulcer of right heel, unstageable: (7) Ischemic ulcer of ankle: (8) Stroke: Plan Patient underwent angioplasty of the left popliteal and anterior tibial with good results. Right lower extremity still has severe disease. Plan on staged procedure in 2 weeks. At this time we will continue aspirin. Attestations 2 Medical Necessity Statement*: Deferred to primary care. Coding Level of Care Code Acute Code for [facility] Fwd Diagnoses Critical limb ischemia of both lower extremities I70.223 CAD (coronary artery disease) I25.10 Mixed hyperlipidemia E78.2 Peripheral artery disease I73.9 Pressure ulcer, heel, left, unstageable L89.620 Pressure ulcer of right heel, unstageable L89.610 Ischemic ulcer of ankle L97.309 Stroke I63.9
[2024-06-01 11:56] LABS: Glucose Point of Care 188 mg/dL (70-110)
[2024-06-01] MEDS: insulin lispro 100 unit/1 mL SUBCUT ×3 (12:36→21:34)
--- NOTE | 2024-06-01 14:25 | PC.NURSE ---
1330 pm sheath pulled Explained procedure to pt. palpated femoral artery on right groin. 6 fr sheath removed on right groin. manual pressure held for 20 mins. hemostasis achieved. no bleeding, hematoma, swelling or unusual bleeding noted during and after procedure. sheath intact. pedal pulses doppled ,feet warm, pt has chronic leg and peripheral neuropathy pain. call light provided pt. vs monitored and neurovascular monitored.
[2024-06-01] MEDS: fentaNYL 50 mcg/mL INJ 2mL 25 MCG IVP (14:49)
--- NOTE | 2024-06-01 14:56 | PC.NURSE ---
verbal orders received to give 25 mcg fentynal IVP x1
--- NOTE | 2024-06-01 14:59 | USCV_ITS ---
Billie Govea Age: 68 Gender: F : 1955 Exam Date: 06/01/2024 15:21 Ordering Phys: Krystal Hoffmann NP Technologist: CT Exam Location: [facility] [place]_ Indication: Findings Right. [employer] =. [place]. Circumscribed, hypodense area measuring 7.7 x 2.4 cm with no Doppler flow signals Patent common femoral artery underneath Conclusions Large hypodense area, suggestive of organized hematoma measuring 7.7 x 2.4 cm Patent common femoral artery No evidence of pseudoaneurysm Dr Jeff Liang MD [facility] (Electronically Signed) Final Date: 02 June 2024 09:34 S
[2024-06-01] MEDS: sodium chloride 0.9% 500 ML 999 ML IV ×2 (15:00→16:43)
--- NOTE | 2024-06-01 15:11 | P.PN_ITS ---
Subjective 2 Subjective: No acute events overnight. Today morning examination patient CSE, awake and alert. States post angioplasty her pain is better. Denies any nausea, vomiting, headache. Medications: Reviewed: Yes Vitals/I&O/Wt Last Vital Signs Temp 97.9 F 06/01/24 02:26 Pulse 87 06/01/24 10:00 Resp 25 H 06/01/24 14:49 BP 143/91 06/01/24 10:00 Pulse Ox 97 06/01/24 02:26 O2 Del Method Room Air 06/01/24 02:26 06/01/24 06/01/24 06/01/24 06:59 14:59 22:59 Intake Total 0 / 1530 1222 / 1222 Output Total 1000 / 3325 1200 / 1200 Balance -1000 / -1795 Weight last 48 hrs Weight 90.31 kg Weight 90 kg Physical Exam 2 Const: COMMON NORMALS: no acute distress and patient oriented x3 HENMT: COMMON NORMALS: normocephalic HEAD & SCALP: normocephalic Eye: COMMON NORMALS: Equal, round and reactive pupils present PUPIL: Yes Equal, round and reactive pupils present OTHER: Left eye corneal clouding, cataract Neck/C-Spine: COMMON NORMALS: no JVD Resp: COMMON NORMALS: normal respiratory effort, No retractions, No use of accessory muscles and clear to auscultation bilaterally AUSCULTATION: clear to auscultation bilaterally Cardio: COMMON NORMALS: no JVD, regular rate, regular rhythm, S1 normal heart sound present and S2 normal heart sound present RATE: regular rate RHYTHM: regular rhythm HEART SOUNDS: S1 normal heart sound present and S2 normal heart sound present GI: COMMON NORMALS: Normal to inspection, nondistended, normoactive bowel sounds present, Soft to palpation and non-tender PALPATION: Yes Soft to palpation Extremity: COMMON NORMALS: no pedal edema Neuro: COMMON NORMALS: patient oriented x3 and CN's II-XII intact bilaterally OTHER: Bilateral lower extremity weakness, Psych: COMMON NORMALS: mental status grossly normal Skin: OTHER: Urinary Catheter Management: Tong: Cath Placed During This Visit: yes Reason for Continuing Indwelling Catheter: Acute Urinary Retention or Obstruction Urinary Catheter Date of Insertion: 05/27/24 Urinary Catheter Time of Insertion: 08:07 Data 06/01/24 04:54 06/01/24 04:54 Micro: Microbiology 05/27/24 08:03 Blood Culture - Final Blood NO GROWTH AFTER 5 DAYS 05/27/24 07:55 Blood Culture - Final Blood NO GROWTH AFTER 5 DAYS A&P Assessment and plan (1) Complicated UTI (urinary tract infection): (2) Peripheral artery disease: (3) Diabetic ulcer of foot associated with diabetes mellitus due to underlying condition, limited to breakdown of skin: (4) Cellulitis of heel: (5) Hypoglycemia: (6) Urinary retention: (7) Diabetes mellitus: Qualifiers: Diabetes mellitus type: type 2 Diabetes mellitus [employer] insulin use: with group home use Diabetes mellitus complication status: with hyperglycemia Qualified Code(s): E11.65 - Type 2 diabetes mellitus with hyperglycemia; Z79.4 - skilled nursing (current) use of insulin (8) Hypothyroidism, unspecified: Qualifiers: Hypothyroidism type: acquired Qualified Code(s): E03.9 - Hypothyroidism, unspecified (9) Sacral decubitus ulcer: (10) CAD (coronary artery disease): (11) Mixed hyperlipidemia: (12) Hypothermia: Plan Hypoglycemia: Due to accidental overdose of Lantus Blood sugar stable. Continue with D5 NS at 75 cc/h. Monitor blood sugars every 2 hour. Switch to regular diet. If blood sugars remain stable we will plan to discontinue IV fluids within next 24 hours. UTI: Appreciate UA. Follow-up urine culture, blood culture. Add bacterial antigen. For now continue with IV Zosyn. Bilateral heel ulcers with black eschar:In setting of severe bilateral PAD Will consult podiatry for further recommendations. ESR CRP mildly elevated. CT of the heel to rule out underlying collection. Continue with Zosyn as above. Continue with vancomycin. Check MRSA swab. If negative will discontinue vancomycin. Type 2 diabetes mellitus: Currently having hypoglycemia. Appreciate A1c. Hold off on antidiabetic medications for now. Sacral decubitus ulcer: Frequent repositioning. Will request medical records from the rehab so that can start on medications at home dose. Back pain: Patient states chronic. States she recently had a fall. At baseline she seems to be bedbound for stroke. Continue with IV Dilaudid 0.4 every 6 hours as needed. Hold off on Valium until confirmed from jail. [place] 5 mg every [address] lumbar spine. Will restart home medications when list available. CODE STATUS, DNR/DNI, confirmed with patient multiple times Eliquis for DVT prophylaxis Protonix for PUD prophylaxis. Discharge plan: Discussed detail with the patient. She will be discharging to home to live with her son. Patient is agreeable for possible arrangement of home health for wound care. Case management alerted. Plan for the day: Post balloon angioplasty of left popliteal and anterior tibial artery today. Plan for staged angioplasty of right lower extremity in 2 weeks. Continue with aspirin, Plavix. Will plan to restart Eliquis tomorrow as per cardiology recommendations. Neurovascular check of both legs every 4 hours. Appreciate urine cultures for Enterococcus faecalis. Continue with Augmentin for now to finish off the 7-day course overall. Goal blood pressure less than 140/90 mmHg. Continue with current dose of Cardizem. Blood pressure slightly elevated. Will continue to monitor. If needed will start on hydralazine. Discharge plan: Plan to discharge in a.m. with Tong catheter in place on oral Augmentin to finish a 7-day course with aspirin, Plavix and Eliquis. Attestations 2 Medical Necessity Statement*: Requires further hospitalization for management of severe PAD, balloon angioplasty of left lower extremity requiring staged procedure in 2 weeks, Enterococcus UTI in a patient with history of stroke, bedbound, bilateral heel ulcers Diagnoses Complicated UTI (urinary tract infection) N39.0 Peripheral artery disease I73.9 Diabetic ulcer of foot associated with diabetes mellitus due to underlying condition, limited to breakdown of skin E08.621; L97.501 Cellulitis of heel L03.119 Hypoglycemia E16.2 Urinary retention R33.9 Type 2 diabetes mellitus with hyperglycemia, with long-term current use of insulin E11.65; Z79.4 Diabetes mellitus type: type 2 Diabetes mellitus [employer] insulin use: with [employer] use Diabetes mellitus complication status: with hyperglycemia Acquired hypothyroidism E03.9 Hypothyroidism type: acquired Sacral decubitus ulcer L89.159 CAD (coronary artery disease) I25.10 Mixed hyperlipidemia E78.2 Hypothermia T68.XXXA
--- NOTE | 2024-06-01 15:24 | PC.NURSE ---
Addendum entered by Rickie Alberto RN 06/01/24 19:05: hematoma has softened, no increased size noted. pt denies any increasing pain or pressure on right groin. nurse has applied sandbag since after the hematoma development. Original Note: 1445 Hematoma checked on pt and noted a large hematoma on right groin. direct pressure applied to artery,notified dr gates MAURI. received orders to give 500 bolus NS then 100 cc/hr. Dr Gates came in quickly. he held pressure for 10 mins, this nurse then held another 10 mins. Will keep monitoring.
[2024-06-01] MEDS: sodium chloride 0.9% 1,000 ML 100 ML IV ×2 (15:30→20:56)
[2024-06-01 17:09] LABS: Glucose Point of Care 175 mg/dL (70-110)
[2024-06-01 18:11] LABS: Basophils # 0.1 10^3/uL (0.0-0.1); Basophils % 0.7 %; Eosinophils # 0.3 10^3/uL (0.0-0.8); Eosinophils % 2.7 %; Lymphocytes # 3.4 10^3/uL (0.8-4.8); Lymphocytes % 34.2 %; Mean Corpuscular HGB Conc 30.4 g/dL (30-55); Mean Corpuscular Hemoglobin 26.4 pg (27-33); Mean Corpuscular Volume 86.8 fl (85-98); Mean Platelet Volume 10.3 fL (7.4-10.4); Monocytes # 0.6 10^3/uL (0.2-0.9); Monocytes % 6.3 %; Neutrophils # 5.48 10^3/uL (1.8-7.7); Neutrophils % 55.8 %; Nucleated Red Blood Cells % 0 %; Platelet Count 341 10^3/cmm (157-399); Red Blood Count 2.88 10^6/uL (3.85-5.65); Red Cell Distribution Width 18.4 % (12.1-15.1); White Blood Count 9.83 10^3/uL (3.29-11.43)
--- NOTE | 2024-06-01 18:58 | PC.NURSE ---
shift note pt had a well tolerated sheath removal on right groin post angiogram, however she develop hematoma. Pt has been educated multiple times during shift on activity restrictions on right leg post angiogram to prevent increase bleeding/hematoma, to tell nurse if any unusual pain, pressure to right groin. well keep reinforcing.
[2024-06-01 20:53] LABS: Glucose Point of Care 145 mg/dL (70-110)
[2024-06-01] MEDS: atorvastatin 40 mg Tablet PO (21:33)
[2024-06-01] MEDS: enoxaparin 100 mg/mL Syringe 90 MG SUBCUT (21:34)
[2024-06-02] VITALS (17 sets, daily range): BP systolic 96–140; BP diastolic 57–88; PULSE 81–96; RESP 12–24; TEMP 36.7–37.4; O2SAT 89–99
[2024-06-02 04:51] LABS: Basophils # 0.1 10^3/uL (0.0-0.1); Basophils % 0.9 %; Eosinophils # 0.2 10^3/uL (0.0-0.8); Eosinophils % 1.7 %; Lymphocytes # 4.3 10^3/uL (0.8-4.8); Mean Corpuscular HGB Conc 29.6 g/dL (30-55); Mean Corpuscular Hemoglobin 26.7 pg (27-33); Mean Corpuscular Volume 90.2 fl (85-98); Monocytes # 0.7 10^3/uL (0.2-0.9); Monocytes % 6.8 %; Neutrophils # 5.42 10^3/uL (1.8-7.7); Neutrophils % 50.3 %; Nucleated Red Blood Cells % 0 %; Platelet Count 336 10^3/cmm (157-399); Red Blood Count 2.66 10^6/uL (3.85-5.65); Red Cell Distribution Width 18.7 % (12.1-15.1); White Blood Count 10.76 10^3/uL (3.29-11.43)
[2024-06-02] MEDS: escitalopram 10 mg Tablet 15 MG PO (05:09)
[2024-06-02] MEDS: mirtazapine 15 mg Tablet 7.5 MG PO (05:09)
[2024-06-02] MEDS: dilTIAZem 30 mg Tablet PO ×4 (05:09→20:56)
[2024-06-02] MEDS: levothyroxine 175 mcg Tablet PO (05:09)
[2024-06-02] MEDS: HYDROmorphone 1 mg/mL INJ 1 mL 0.2 MG IVP ×2 (05:09→21:43)
[2024-06-02 05:24] LABS: Alanine Aminotransferase < 5 U/L (0-33); Albumin Level 2.7 g/dL (3.5-5.2); Alkaline Phosphatase 93 U/L (35-105); Anion Gap 16.5 (5-19); Aspartate Amino Transferase 10 U/L (0-32); Blood Urea Nitrogen 13 mg/dL (8-23); Calcium 8.4 mg/dL (8.5-10.5); Carbon Dioxide 21 mmol/L (22-29); Chloride 105 mmol/L (98-107); Creatinine Clr Calc Pharmacy 73.7808; Globulin 3.8 g/dL (1.3-4.6); Glomerular Filtration Rate 83.7 mL/min (90-130); Glucose 122 mg/dL (65-115); Osmolality Calculated 289 mOsm/kg (285-295); Potassium 3.5 mmol/L (3.5-5.1); Sodium 139 mmol/L (136-145); Total Bilirubin 0.3 mg/dL (0.15-1.2); Total Protein 6.5 g/dL (6.6-8.7)
[2024-06-02 06:48] LABS: Glucose Point of Care 137 mg/dL (70-110)
[2024-06-02] MEDS: sodium chloride 0.9% 1,000 ML 100 ML IV (07:22)
--- NOTE | 2024-06-02 08:41 | P.PN_ITS ---
Subjective 2 Subjective: Patient is doing well. had access site hematoma that is stable. Vitals/I&O/Wt Last Vital Signs Temp 98.5 F 06/02/24 07:45 Pulse 86 06/02/24 07:45 Resp 12 06/02/24 07:45 BP 109/65 06/02/24 07:45 Pulse Ox 94 06/02/24 07:45 O2 Del Method Room Air 06/02/24 07:45 06/01/24 06/02/24 06/02/24 22:59 06:59 14:59 Intake Total 1718 / 2940 1000 / 1000 Output Total 650 / 1850 300 / 2150 Balance 1068 / 1090 -300 / 790 1000 / 1000 Weight last 48 hrs Weight 203 lb 14.841 oz Weight 203 lb 14.841 oz Weight 199 lb 1.6 oz Physical Exam 2 Narrative: GENERAL: Patient is alert, awake and oriented x3. [] NECK: No jugular vein distension. [] HEENT: No cyanosis. No icterus. No pallor. [] HEART: Regular S1 and S2. Grade 2/6 systolic murmur LUNGS: Clear to auscultate bilaterally. [] CENTRAL NERVOUS SYSTEM: Grossly nonfocal. [] EXTREMITIES: Lower extremities with 1+ edema bilaterally. Has dressings on foot. AT is dopplerable. Lower extremities are warm. Urinary Catheter Management: Tong: Cath Placed During This Visit: yes Reason for Continuing Indwelling Catheter: Other Urinary Catheter Date of Insertion: 05/27/24 Urinary Catheter Time of Insertion: 08:07 Data 06/02/24 04:10 06/02/24 04:10 Micro: Microbiology 05/27/24 08:03 Blood Culture - Final Blood NO GROWTH AFTER 5 DAYS 05/27/24 07:55 Blood Culture - Final Blood NO GROWTH AFTER 5 DAYS A&P Assessment and plan (1) Critical limb ischemia of both lower extremities: (2) CAD (coronary artery disease): (3) Mixed hyperlipidemia: (4) Peripheral artery disease: (5) Pressure ulcer, heel, left, unstageable: (6) Pressure ulcer of right heel, unstageable: (7) Ischemic ulcer of ankle: (8) Stroke: Plan Patient had successful revascularization of left lower extremity with balloon angioplasty of totally occluded popliteal artery and anterior tibial arteries. She has hematoma at site of access in right groin. It is stable. Patient can be discharged home on aspirin and Plavix. Keep holding Eliquis for 1 week. We will plan on staged revascularization of right lower extremity in 4 weeks Thank you for involving us with care of this patient. Please call with questions. Attestations 2 Medical Necessity Statement*: Care expected to cross 2 midnights. Coding Level of Care Code Acute Code for [facility] Fwd Diagnoses Critical limb ischemia of both lower extremities I70.223 CAD (coronary artery disease) I25.10 Mixed hyperlipidemia E78.2 Peripheral artery disease I73.9 Pressure ulcer, heel, left, unstageable L89.620 Pressure ulcer of right heel, unstageable L89.610 Ischemic ulcer of ankle L97.309 Stroke I63.9
[2024-06-02] MEDS: amoxicillin-clav 875-125 mg Tablet 1 TAB PO ×2 (08:44→17:03)
[2024-06-02] MEDS: clopidogrel 75 mg Tablet PO (08:44)
[2024-06-02] MEDS: ropinirole 0.25 mg Tablet 0.5 MG PO ×2 (08:44→17:03)
[2024-06-02] MEDS: pantoprazole DR 40 mg Tablet PO ×2 (08:45→17:04)
[2024-06-02] MEDS: aspirin 81 mg EC Tablet PO (08:45)
[2024-06-02] MEDS: pregabalin 100 mg Capsule PO ×2 (08:45→17:04)
[2024-06-02] MEDS: HYDROcodone-acetaminophen 5-325 mg Tablet 1 TAB PO ×2 (09:59→20:56)
--- NOTE | 2024-06-02 11:25 | P.DS_ITS ---
Discharge Providers 2 Date of Admission: 05/27/24 05:31 Date of Discharge: June 02, 2024 Attending Provider at Admission: Bonilla Ivan MD Attending Provider at Discharge: Irineo Jhaveri MD Consults: Cardiology: Dr. Gates Primary Care Provider: Lety Banks APN Diagnoses at Discharge Discharge Diagnosis (1) Complicated UTI (urinary tract infection): Status: Acute (2) Peripheral artery disease: Status: Acute (3) Diabetic ulcer of foot associated with diabetes mellitus due to underlying condition, limited to breakdown of skin: Status: Acute (4) Cellulitis of heel: Status: Acute (5) Hypoglycemia: Status: Acute (6) Urinary retention: Status: Acute (7) Diabetes mellitus: Status: Chronic Qualifiers: Diabetes mellitus complication status: with hyperglycemia Diabetes mellitus retirement insulin use: with retirement use Diabetes mellitus type: type 2 Qualified Code(s): E11.65 - Type 2 diabetes mellitus with hyperglycemia; Z79.4 - mental health consultant (current) use of insulin (8) Hypothyroidism, unspecified: Status: Chronic Qualifiers: Hypothyroidism type: acquired Qualified Code(s): E03.9 - Hypothyroidism, unspecified (9) Sacral decubitus ulcer: Status: Acute (10) CAD (coronary artery disease): Status: Acute (11) Mixed hyperlipidemia: Status: Acute (12) Hypothermia: Status: Acute Reason for Visit 2 Reason for Visit: Hypoglycemia Brief History: History as per HPI: Billie Govea is a 68 year old female with a past medical history of CVA with residual left-sided weakness, is a Antonino lift, she tells me that she is lost functionality of both legs, has urinary retention, history of recurrent UTIs, reported stool incontinence, she was at [facility] for rehab, but left AGAINST MEDICAL ADVICE yesterday to the care of her son, has type 2 diabetes mellitus, hypertension hyperlipidemia CAD status post 4 stents, atrial fibrillation, hyperlipidemia, hypothyroidism, who presents to [facility] as a transfer from [facility] for concerns for hypoglycemia. Currently patient is alert oriented x 3, following all commands, patient tells me that back in July 2023, she had all large stroke which resulted in her being debilitated, she cannot ambulate without assistance, she has troubles with balance she is lost significant functionality of both lower legs, but significant portion of her weakness was on the left side, with urinary retention issues, issues with bowel incontinence. She has been at [facility] for rehab, however she was not being treated appropriately she tells me, she did not like the care she was receiving so she left AGAINST MEDICAL ADVICE. She was not sent home with any paperwork she tells me nor it with any medications. When she got home she used her home Lantus and gave herself what ever was remaining in the pen that was dosed at as she believes at 70 units, she is not sure how much insulin she was receiving at the rehab facility, she became unresponsive, son called 911, paramedics arrived blood sugar 39, she was given D10 by the time she arrived to the emergency room her blood sugar down to 17, at [facility] she was found to have hypoglycemia, hypokalemia, was given D50 bolus, a total of 3 A, started on D5 normal saline, was given 40 mill colons of potassium, potassium improved to 3.4, blood sugars have improved into the low high 80s to 90s, she was back to alert oriented x 3 she was also found to be hypothermic placed on Young hugger, she feels like she has a UTI as she feels lower pelvic pressure, her white blood cell count is 14.4, hemoglobin 9.5, creatinine 0.57, bicarb is 24, anion gap 13, patient adamantly denies any suicidal ideation, denies any homicidal ideation, denies suicide attempt Hospital Course Hospital Course Was admitted to the hospital further evaluation and management of persistent hypoglycemia in setting of unintentional overdose on Lantus, bilateral heel ulcers along with concerns for UTI. She was started on broad-spectrum IV antibiotics. Podiatry was consulted. Due to persistent hypoglycemia at first she was started on D5W fluid. Eventually her blood sugars remained stable and has been improving. She is not requiring D5W for last 72 to 96 hours. During hospitalization blood cultures remain negative but urine culture positive for Enterococcus faecalis. There was a concern for urinary retention for which Tong catheter was placed. CT on pelvis was done which showed marked bladder wall thickening with very vesica fat infiltration with mild bilateral hydroureter secondary to 50 changes in bladder without obstructing calculi. Wound care dressings were done as per podiatry recommendations. There was no concern for any cellulitis. Given persistent lower limb pain arterial duplex was done which was consistent with severe bilateral PAD which was confirmed on aorta runoff CTA. Cardiology was consulted and she underwent peripheral angiogram on 06/01 which showed Left lower extremity total occlusion of popliteal artery, posterior tibial artery and peroneal arteries, subtotal occlusion of anterior tibial artery. She underwent successful revascularization with balloon angioplasty of popliteal artery and anterior tibial artery. Has good one-vessel runoff. She was also found to have right lower extremity has a severe popliteal artery and below the knee disease. She is advised to have a repeat peripheral angioplasty as an outpatient as a staged procedure. Postoperatively she did have mild acute on chronic anemia in setting of mild hematoma without pseudoaneurysm. She received front of blood transfusion. 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 She is to hold off on taking Eliquis for next 2 weeks. She will continue with aspirin Plavix for now. Her NPH insulin has been discontinued. She is to continue taking her short acting insulin as per sliding scale and long-acting 7 units nightly has been added to her list. Safe discharge plan were discussed in detail with patient with options of possible transition to SNF versus home with home health. Patient would like to go home with home health which is being arranged. She is to follow-up with cardiology team as an outpatient along with urologist within next 2 weeks. A Tong catheter remains in place for more than 4 weeks it should be replaced. Physical Exam 2 Const: COMMON NORMALS: no acute distress and patient oriented x3 HENMT: COMMON NORMALS: normocephalic HEAD & SCALP: normocephalic Eye: COMMON NORMALS: Equal, round and reactive pupils present PUPIL: Yes Equal, round and reactive pupils present OTHER: Left eye corneal clouding, cataract Neck/C-Spine: COMMON NORMALS: no JVD Resp: COMMON NORMALS: normal respiratory effort, No retractions, No use of accessory muscles and clear to auscultation bilaterally AUSCULTATION: clear to auscultation bilaterally Cardio: COMMON NORMALS: no JVD, regular rate, regular rhythm, S1 normal heart sound present and S2 normal heart sound present RATE: regular rate RHYTHM: regular rhythm HEART SOUNDS: S1 normal heart sound present and S2 normal heart sound present GI: COMMON NORMALS: Normal to inspection, nondistended, normoactive bowel sounds present, Soft to palpation and non-tender PALPATION: Yes Soft to palpation Extremity: COMMON NORMALS: no pedal edema Neuro: COMMON NORMALS: patient oriented x3 and CN's II-XII intact bilaterally OTHER: Bilateral lower extremity weakness, Psych: COMMON NORMALS: mental status grossly normal Skin: OTHER: Urinary Catheter Management: Tong: Cath Placed During This Visit: yes Reason for Continuing Indwelling Catheter: Other Urinary Catheter Date of Insertion: 05/27/24 Urinary Catheter Time of Insertion: 08:07 Discharge Data Studies Completed and Pending Completed Studies During Hospitalization Category Date Time Status CT abdomen renal stone [CT kidney stone 75094] Routine Cat Scan 05/27/24 16:[address] angio abd aorta runof [id number] Routine Cat Scan 05/29/24 10:[address] foot LT wo con* [id number] Routine Cat Scan 05/27/24 09:[address] foot RT wo con* [id number] Routine Cat Scan 05/27/24 09:[address] lumbar spine wo con* [id number] Routine Cat Scan 05/27/24 12:16 Completed XR chest 1V portable [id number] Routine Exams 05/27/24 06:26 Completed XR tibia fibula LT 2V [id number] Routine Exams 05/27/24 06:17 Completed XR tibia fibula RT 2V [id number] Routine Exams 05/27/24 06:17 [place] [id number] Stat Ultrasound 06/01/24 14:59 [place] [id number] Routine Ultrasound 05/27/24 17:28 Completed CV. 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 Chest X-Ray 05/27/24 06:26 IMPRESSION: 1. Mild, diffuse bilateral pulmonary edema and/or pneumonitis. 2. Pulmonary vascular congestion. 3. Mild elevation of the right hemidiaphragm. 4. Mild cardiomegaly. Foot CT 05/27/24 09:19 IMPRESSION: 1. Area of cortical irregularity involving the lateral aspect of the cuboid bone which may relate to underlying fracture versus acute on chronic osteomyelitis changes. 2. Additional diffuse heterogenous changes of the bone marrow of the mid and hindfoot which may be related to degenerative changes versus chronic osteomyelitis versus metabolic disease. 3. Diffuse soft tissue swelling of the foot without focal drainable abscess. This may relate to overlying cellulitic changes. 4. Cutaneous irregularity at the heel, correlate with physical exam for ulcer. Lumbar Spine CT 05/27/24 12:16 IMPRESSION: 1. No acute lumbar spine findings. 2. Prominent left ureter. Question left obstructive uropathy at the level of the distal left ureter off the field of view. Possible left urinary tract infection. Correlate clinically. 3. Additional details as above. Abdomen/Pelvis CT 05/27/24 16:10 IMPRESSION: 1. Marked urinary bladder wall thickening with perivesicular inflammatory changes. Correlate with urinalysis to exclude cystitis. Mild bilateral hydroureter is likely secondary to inflammatory changes in the urinary bladder rather than obstructing calculus. There is also a small calculus in the distal left ureter however is likely nonobstructing. 2. Additional bilateral nonobstructing renal calculi are also present. 3. Rectal wall thickening with some presacral fluid correlate for proctitis. 4. Small amount of free fluid in the pelvis. 5. Moderate constipation. Aorta w/Runoff CTA 05/29/24 10:17 IMPRESSION: 1. Extensive atherosclerotic changes of bilateral lower extremities with multilevel areas severe stenosis and occlusion detailed above. Some reconstituted flow seen in the distal calf vessels with single-vessel runoff on the right three-vessel runoff on the left. 2. Decompressed urinary bladder with Tong catheter in place. Marked bladder wall thickening well as perivesical fat infiltration suggesting possible acute pathology such as infection although correlation with any prior treatment is recommended. 3. Multiple minor findings described above. Laboratory Results WBC 10.76 10^3/uL (3.29-11.43) 06/02/24 04:10 RBC 2.66 10^6/uL (3.85-5.65) L 06/02/24 04:10 Hgb 7.10 g/dL (11.27-16.99) L 06/02/24 04:10 Hct 24.0 % (36-47) L 06/02/24 04:10 MCV 90.2 fl (85-98) 06/02/24 04:10 MCH 26.7 pg (27-33) L 06/02/24 04:10 MCHC 29.6 g/dL (30-55) L 06/02/24 04:10 RDW 18.7 % (12.1-15.1) H 06/02/24 04:10 Plt Count 336 10^3/cmm (157-399) 06/02/24 04:10 MPV 11.0 fL (7.4-10.4) H 06/02/24 04:10 Neut % (Auto) 50.3 % 06/02/24 04:10 Lymph % (Auto) 40.0 % 06/02/24 04:10 [place] % (Auto) 6.8 % 06/02/24 04:10 Eos % (Auto) 1.7 % 06/02/24 04:10 Baso % (Auto) 0.9 % 06/02/24 04:10 Neut # (Auto) 5.42 10^3/uL (1.8-7.7) 06/02/24 04:10 Lymph # (Auto) 4.3 10^3/uL (0.8-4.8) 06/02/24 04:10 [place] # (Auto) 0.7 10^3/uL (0.2-0.9) 06/02/24 04:10 Eos # (Auto) 0.2 10^3/uL (0.0-0.8) 06/02/24 04:10 Baso # (Auto) 0.1 10^3/uL (0.0-0.1) 06/02/24 04:10 Nucleated RBC % (auto) 0 % 06/02/24 04:10 Nucleated RBCs # 0.0 /100WBC 06/02/24 04:10 ESR 53 mm/hr (0-15) H 05/27/24 07:55 APTT 50.5 SECONDS (23.9-36.7) H 06/01/24 10:14 Sodium 139 mmol/L (136-145) 06/02/24 04:10 Potassium 3.5 mmol/L (3.5-5.1) 06/02/24 04:10 Chloride 105 mmol/L (98-107) 06/02/24 04:10 Carbon Dioxide 21 mmol/L (22-29) L 06/02/24 04:10 Anion Gap 16.5 (5-19) 06/02/24 04:10 BUN 13 mg/dL (8-23) 06/02/24 04:10 Creatinine 0.7 mg/dL (0.5-0.9) 06/02/24 04:10 GFR Calculation 83.7 mL/min (90-130) L 06/02/24 04:10 Glucose 122 mg/dL (65-115) H 06/02/24 04:10 POC Glucose 137 mg/dL (70-110) H 06/02/24 06:42 Estimat Average Glucose 128 05/27/24 07:55 Hemoglobin A1c 6.1 % (4.0-6.0) H 05/27/24 07:55 Calculated Osmolality 289 mOsm/kg (285-295) 06/02/24 04:10 Lactic Acid 1.0 mmol/L (0.5-2.2) 05/27/24 07:55 Calcium 8.4 mg/dL (8.5-10.5) L 06/02/24 04:10 Phosphorus 3.9 mg/dL (2.5-4.5) 05/27/24 07:55 Magnesium 1.7 mg/dL (1.7-2.3) 05/29/24 06:36 Iron 28 ug/dL (37-145) L 05/27/24 07:55 TIBC 184 mcg/dl 05/27/24 07:55 % Saturation 15.2 % (20-50) L 05/27/24 07:55 Unsat Iron Binding 156 ug/dL (112-347) 05/27/24 07:55 Total Bilirubin 0.3 mg/dL (0.15-1.2) 06/02/24 04:10 AST 10 U/L (0-32) 06/02/24 04:10 ALT < 5 U/L (0-33) 06/02/24 04:10 Alkaline Phosphatase 93 U/L (35-105) 06/02/24 04:10 Creatine Kinase 36 U/L (26-192) 05/27/24 07:55 Troponin T Baseline 83 ng/L (0-10) H 05/27/24 07:55 Troponin T Hi Sens 6Hr 83.61 ng/L (0-10) H 05/27/24 13:46 Troponin T Hi Sens 6Hr Delta 0.61 ng/L (0-12) 05/27/24 13:46 C-Reactive Protein 57.6 mg/L (0.0-4.9) H 05/27/24 07:55 Total Protein 6.5 g/dL (6.6-8.7) L 06/02/24 04:10 Albumin 2.7 g/dL (3.5-5.2) L 06/02/24 04:10 Globulin 3.8 g/dL (1.3-4.6) 06/02/24 04:10 Triglycerides 93 mg/dL (0-150) 05/27/24 07:55 Cholesterol 136 mg/dL (0-200) 05/27/24 07:55 LDL Cholesterol, Calc 61 mg/dL (50-129) 05/27/24 07:55 HDL Cholesterol 56 mg/dL (60-100) L 05/27/24 07:55 LDL/HDL Ratio 1.09 RATIO (0.00-3.22) 05/27/24 07:55 Cholesterol/HDL Ratio 2.43 mg/dL (0.0-4.40) 05/27/24 07:55 Vitamin B12 290 pg/mL (232-1245) 05/27/24 07:55 Folate 6.3 ng/mL (4.8-37.3) 05/28/24 03:37 Procalcitonin 0.14 ng/mL (0-0.5) 05/27/24 07:55 TSH 3.97 uIU/mL (0.27-4.20) 05/27/24 07:55 Free T4 1.08 ng/dL (0.82-1.77) 05/27/24 07:55 Free T3 1.8 PG/ML (2.0-4.4) L 05/27/24 07:55 Urine Color Yellow (Yellow) 05/27/24 07:50 Urine Appearance Cloudy (CLEAR) A 05/27/24 07:50 Urine pH 7.5 (5-7) 05/27/24 07:50 Ur Specific [place] 1.009 (1.005-1.030) 05/27/24 07:50 Urine Protein Trace (Negative) A 05/27/24 07:50 Urine Glucose (UA) Negative (Normal) 05/27/24 07:50 Urine Ketones Negative (Negative) 05/27/24 07:50 Urine Blood Negative (Negative) 05/27/24 07:50 Urine Nitrate Positive (Negative) A 05/27/24 07:50 Urine Bilirubin Negative (Negative) 05/27/24 07:50 Urine Urobilinogen 1.0 mg/dL (Negative) 05/27/24 07:50 Ur Leukocyte Esterase Trace (Negative) A 05/27/24 07:50 Urine RBC 0-2 /hpf (0-2) 05/27/24 07:50 Urine WBC 21-50 /hpf (0-5) H 05/27/24 07:50 Ur Squamous Epith Cells 0-5 /hpf (0-5) 05/27/24 07:50 Amorphous Sediment Not Reportable 05/27/24 07:50 Urine Bacteria 4+ /hpf (NONE) H 05/27/24 07:50 Hyaline Casts 4.11 /lpf 05/27/24 07:50 Nasal MRSA (PCR) Mrsa detected (Not Detecte) A 05/27/24 09:15 Vancomycin Trough 17.7 ug/mL (10-15) H 05/29/24 09:37 Blood Type A Negative 06/02/24 09:45 Rho(D) Type Rh negative 06/02/24 09:45 Antibody Screen Negative 06/02/24 09:45 Crossmatch See Detail 06/02/24 09:45 Vitals Last Vital Signs Temp 98.5 F 06/02/24 07:45 Pulse 86 06/02/24 07:45 Resp 12 06/02/24 07:45 BP 109/65 06/02/24 07:45 Pulse Ox 94 06/02/24 07:45 O2 Del Method Room Air 06/02/24 07:45 Discharge Plan Discharge Patient Disposition: Home Health Service Condition: Stable Prescriptions: New clopidogrel 75 mg Tablet 75 mg PO DAILY Qty: 30 0RF amoxicillin-pot clavulanate 875-125 mg Tablet 1 tab PO BID 3 Days Qty: 6 0RF insulin glargine [Basaglar KwikPen U-100 Insulin] 100 unit/mL (3 mL) insulin pen 7 unit SUBCUT QPM Qty: 15 0RF Continued pregabalin 100 mg capsule 100 mg PO BID escitalopram oxalate 10 mg tablet 15 mg PO QAM (DME) pen needle, diabetic [BD Jocelyn 2nd Gen Pen Needle] 32 gauge x 5/32 needle See Rx Instructions .Route Qty: 120 5RF Rx Instructions: As directed 4 times daily aspirin 81 mg Tablet,Delayed Release (Dr/Ec) 81 mg PO DAILY glucagon HCl [Glucagon (HCl) Emergency Kit] 1 mg recon soln 1 mg SUBCUT PRN PRN (Reason: low blood sugar) levothyroxine 175 mcg tablet 175 mcg PO QAM acetaminophen 325 mg Tablet See Rx Instructions .ROUTE .COMPLEX PRN (Reason: pain or elevated temp) Rx Instructions: Take 650 mg orally every 6 hours as needed for elevated temp or pain. prednisone 10 mg tablet 10 mg PO DAILY triamcinolone acetonide 0.5 % cream 1 applic TOPICAL PRN PRN (Reason: Skin Irritation) prednisolone acetate 1 % drops,suspension See Rx Instructions .ROUTE .COMPLEX Rx Instructions: Instill 1 drop into left eye once daily and 1 drop in right eye 3 times daily. neomycin-polymyxin B-dexameth 3.5mg/mL-10,000 unit/mL-0.1 % drops,suspension 1 drp ophthalmic (eye) BEDTIME Santyl 250 unit/gram ointment See Rx Instructions .ROUTE .COMPLEX Rx Instructions: 1 application topically to left ankle, left heel, and right heel every day shif. insulin lispro 100 unit/mL insulin pen See Rx Instructions .ROUTE .COMPLEX Rx Instructions: Use per sliding scale. If bs is 151-200=3untis, 201-250=6units, 251- 300=9units, 301-350=12units, 351-400=18units, if over 400 contact physician. mirtazapine 7.5 mg tablet 7.5 mg PO QAM atorvastatin [Lipitor] 40 mg tablet 40 mg PO BEDTIME pantoprazole 40 mg tablet,delayed release (DR/EC) 40 mg PO BID ropinirole 0.5 mg tablet 0.5 mg PO BID diltiazem HCl 180 mg capsule,ext.rel 24h degradable 180 mg PO DAILY loperamide 2 mg Tablet See Rx Instructions .ROUTE .COMPLEX PRN (Reason: Diarrhea) Rx Instructions: Give 2 tablets by mouth initially , then 1 tablet after each loose stool until symptoms controlled; do not exceed 8 mg per 24 hrs. magnesium hydroxide [Milk of Magnesia] 400 mg/5 mL Suspension 30 ml PO Q12H PRN (Reason: Constipation) bisacodyl [Dulcolax (bisacodyl)] 10 mg Suppository 10 mg MI Q12H PRN (Reason: Constipation) Artificial Tears (PF) Dropperette 1 drp OPHTHALMIC (EYE) Q4H PRN (Reason: Dry Eyes) hydrocodone-acetaminophen 10-325 mg tablet 1 tab PO Q8H PRN (Reason: Pain) Qty: 10 0RF Held Eliquis 5 mg tablet 5 mg PO DAILY Hold Instructions: Resume on 06/16/24. Discontinued Humulin N NPH Insulin KwikPen 100 unit/mL (3 mL) insulin pen See Rx Instructions SUBCUT DAILY Qty: 15 0RF Rx Instructions: Sliding scale - max 30 units daily subcutaneously daily; Discharge Orders: Discharge Order (Routine); Ordered 06/02/24 Ordered By: Irineo Jhaveri Referrals: [facility] [Outside] Krystal Hoffmann NP [Nurse Practitioner] - 06/15/24 3:00 pm DEIRDRE Williamson FNP [Nurse Practitioner] - 06/08/24 2:00 pm Tevin Gates M.D [Physician] - 1 month (After, your appointmant with Krystal Hoffmann you will be schedule with Dr. Gates within 1 month. Thank you! ) Noman Mccloud [Referring] - Discharge Diet: Cardiac and Diabetic Discharge Activity: Increase activity as tolerated Patient Instructions: Amoxicillin (By mouth), Clopidogrel (By mouth) (Plavix), Insulin Glargine (By injection) (Lantus, Lantus SoloStar, Toujeo, Semglee), Urinary Tract Infection in Women (DC), Peripheral Vascular Angioplasty (DC), Opioid Safety, Post Angiogram Home Care Instructions Activity Restrictions/Additional Instructions: Hold Eliquis for next 2 weeks. Continue taking a baby aspirin as before along with Plavix daily. Take your short acting insulin as per sliding scale. Do not take NPH insulin anymore. Take Lantus which is a long-acting insulin 7 units every evening. Follow-up with a primary care provider on set appointment. Repeat CBC with your primary care doctor in 1 week. Follow-up with nurse practitioner from cardiology office in [address] Pearson from cardiology within next 1 month. Follow-up with urology as an outpatient. If Tong catheter remains in place for more than 4 weeks which should be replaced. Discharge Attestations 2 Time Spent in Discharge Care*: greater than 30 min Specific Discharge Activities: educating patient, discussing with pcp/other providers, discussing with case manager/social workers/dc planners, documenting/other paperwork and evaluating patient/reviewing data Status at Discharge: Cognitive status at discharge: cognitively intact , B ehavioral status at discharge: cooperative , Functional status at discharge: b ed bound , Overall status at discharge: patient is back to baseline Quality Metrics Clinical Quality Measures [ No reported AMI, CVA or VTE this stay] Coding Level of Care Code 63173 Total time (in minutes) for Discharge: 60 Diagnoses Complicated UTI (urinary tract infection) N39.0 Peripheral artery disease I73.9 Diabetic ulcer of foot associated with diabetes mellitus due to underlying condition, limited to breakdown of skin E08.621; L97.501 Cellulitis of heel L03.119 Hypoglycemia E16.2 Urinary retention R33.9 Type 2 diabetes mellitus with hyperglycemia, with long-term current use of insulin E11.65; Z79.4 Diabetes mellitus complication status: with hyperglycemia 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
[2024-06-02 11:42] LABS: Glucose Point of Care 182 mg/dL (70-110)
[2024-06-02] MEDS: insulin lispro 100 unit/1 mL SUBCUT ×2 (12:44→20:56)
[2024-06-02] MEDS: collagenase oint 30 gm 1 APPLIC TOPICAL (17:04)
[2024-06-02 17:33] LABS: Glucose Point of Care 137 mg/dL (70-110)
--- NOTE | 2024-06-02 17:45 | PC.NURSE ---
waiting for [facility]
--- NOTE | 2024-06-02 18:55 | PC.NURSE ---
called [facility] ambulance they said, it will be awhile to transport the pt due to more emergencies. Talked to son via phone in regards to pt's discharge instructions and medications and follow up appointments. discharge packet provided to pt.
[2024-06-02 20:29] LABS: Glucose Point of Care 201 mg/dL (70-110)
[2024-06-02] MEDS: atorvastatin 40 mg Tablet PO (20:56)
[2024-06-02] MEDS: enoxaparin 100 mg/mL Syringe 90 MG SUBCUT (20:56)
--- NOTE | 2024-06-02 22:11 | PC.NURSE ---
EMS arrived around 2144, this nurse gave a dose of patients pain medication at patient request for ride home, after pain medication given IV was discontinued. This nurse also pulled a dose of Plavix so the patient can take it home for in the morning due to the medication cannot be medicinal plant picker at pharmacy due to in being a holiday. Once EMS left with patient this nurse called the son of the patient to inform him that the patient is on her way home and that a dose of 75mg of Plavix is in the patients discharge packet that the patient is going to take in the morning and let him know he will need to medicinal plant picker the medication for the morning of the .
== END 2024-06-02 22:03 | disposition home health service (06) | DRG 253 ==
LOC: ICU 19:09 → MEDSURG 05-28 16:28 → CSU 06-01 08:24
PROVIDERS: Internal Medicine; Nurse Practitioner Family; Student in an Organized Health Care Education/Training Program; Admitting Provider Family Medicine; PCP Nurse Practitioner; Visit Provider Student in an Organized Health Care Education/Training Program
PROC: 047N3ZZ Dilation of Left Popliteal Artery, Percutaneous Approach (ICD-10-PCS; principal; 2024-06-01 06:00)
PROC: 047N3ZZ Dilation of Left Popliteal Artery, Percutaneous Approach (ICD-10-PCS; 2024-06-01 06:00)
DX: E11.51 Type 2 diabetes mellitus with diabetic peripheral angiopathy without gangrene (principal); I69.354 Hemiplegia and hemiparesis following cerebral infarction affecting left non-dominant side; L03.116 Cellulitis of left lower limb; L97.411 Non-pressure chronic ulcer of right heel and midfoot limited to breakdown of skin; L97.421 Non-pressure chronic ulcer of left heel and midfoot limited to breakdown of skin; N39.0 Urinary tract infection, site not specified; T38.3X1A Poisoning by insulin and oral hypoglycemic [antidiabetic] drugs, accidental (unintentional), initial encounter; E11.649 Type 2 diabetes mellitus with hypoglycemia without coma; E11.65 Type 2 diabetes mellitus with hyperglycemia; E11.621 Type 2 diabetes mellitus with foot ulcer; H26.9 Unspecified cataract; E03.9 Hypothyroidism, unspecified; L89.152 Pressure ulcer of sacral region, stage 2; L89.529 Pressure ulcer of left ankle, unspecified stage; I25.10 Atherosclerotic heart disease of native coronary artery without angina pectoris; E78.2 Mixed hyperlipidemia; R68.0 Hypothermia, not associated with low environmental temperature; G89.29 Other chronic pain; M54.9 Dorsalgia, unspecified; D64.9 Anemia, unspecified; B95.2 Enterococcus as the cause of diseases classified elsewhere; I48.91 Unspecified atrial fibrillation; M06.9 Rheumatoid arthritis, unspecified; F32.A Depression, unspecified; Z79.82 Long term (current) use of aspirin; Z79.01 Long term (current) use of anticoagulants; Z79.4 Long term (current) use of insulin; Z79.891 Long term (current) use of opiate analgesic; Z74.01 Bed confinement status; Z87.891 Personal history of nicotine dependence; Z82.49 Family history of ischemic heart disease and other diseases of the circulatory system; Z80.1 Family history of malignant neoplasm of trachea, bronchus and lung
CPT/HCPCS: 36415; 36416; 36430; 37224; 37228; 51702; 51798; 71045; 72131; 73590; 73700; 74176; 75625; 75635; 75716; 80053; 80061; 80202; 81001; 82550; 82607; 82746; 82962; 83036; 83540; 83550; 83605; 83735; 84100; 84145; 84439; 84443; 84481; 84484; 85025; 85347; 85651; 85730; 86140; 86403; 86850; 86900; 86920; 87040; 87077; 87086; 87186; 93005; 93306; 93925; 93926; 94664; 96372; 96374; 96375; 96376; 99152; 99153; C1725; C1769; C1887; C1894; J1171; J1200; J1644; J1650; J1815; J2250; J2470; J2543; J3010; J3370; J7030; J7040; J7042; P9016; Q0163; Q9967

== ENCOUNTER 2024-06-19 02:04 | Inpatient (IN) | payer MEDICARE, MEDICAID, SELFPAY ==
[2024-06-19] VITALS (90 sets, daily range): BP systolic 79–148; BP diastolic 34–94; PULSE 75–108; RESP 13–31; TEMP 36.4–38.1; O2SAT 84–100; BMI 31.8; BMI 31.6
--- NOTE | 2024-06-19 02:17 | PM.HP ---
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 which needs staged procedure down the road, on her previous visit patient required blood transfusion for acute on chronic anemia, right groin hematoma, patient was asked not to take her Eliquis, she was discharged on aspirin and Plavix, please note she was transferred from [facility] for concerns related to hypoglycemia, patient had recently left [facility] rehab AGAINST MEDICAL ADVICE, took insulin and became hypoglycemic which was managed with dextrose fluids, was discharged on 7 units of Lantus along short acting, NPH discontinued, patient is Antonino lift dependent, has chronic lower extremity wound, pressure ulcer of sacral area, bilateral heel pressure ulcer with black eschar, left ankle ulcer, patient refused to go to SNF wanted to go home, Tong catheter was placed for urinary retention, she had nonobstructing calculi with bilateral hydroureter Patient was evaluated at [facility] 2 days ago for lower back pain, at that time there was concern for worsening of right groin hematoma CT scan of pelvis was done with contrast which showed spinal stenosis related changes, her hemoglobin has not dropped significantly, patient was discharged home with opioids because she wanted to go home, she returned after 2 days with worsening of her symptoms, in the ER sepsis workup was initiated because her white count has worsened to 18,000, UA shows 50-100 wbc with bacteriuria, white count 18,000, lactic acid 2.4, hemoglobin 8.1, platelet 551, sodium 133, potassium 3.2, bicarb 23, creatinine 1.2, glucose 206, LFTs without significant abnormality, UA abnormal Troponin 48 BNP 22 294 Chest x-ray consistent with pulm edema consistent with CHF CT scan did not show hydronephrosis Pseudoaneurysm right groin 9.3 x 3.5 cm When patient arrived in our ICU she was hypotensive, lethargic and fatigued A-fib RVR heart rate 120s, We had to immediately put her on Levophed which improved her blood pressure then we added amiodarone drip Nurses questioned EMS, apparently amiodarone bag was finished at the other hospital and it was not continued during transportation When I examined the patient she is able to tell me that she was not feeling well at home, she does not want to live with her son anymore who yells at her sometimes, she is requesting for long-term placement She is not complaining of chest pain, currently saturating well on 2 L nasal cannula She is not complaining of abdominal pain, she is complaining of back pain which says she is stating that getting better On our examination she has stage I sacral area ulcer Black eschar bilateral heels covered with dressing Tong catheter was exchanged with a new . Afebrile Review of Systems Const: Reports: fever(s) and chills Eyes: Denies: change in vision ENMT: Denies: throat pain Card: Reports: palpitations; Denies: chest pain Resp: Reports: dyspnea GI: Reports: nausea : Denies: flank pain or difficulty voiding Musc: Reports: back pain Skin/Breast: Reports: rash Medications/Allergies Home Medications Medication Instructions Recorded Confirmed Last Taken Type pregabalin 100 mg capsule 100 mg PO BID 06/28/22 05/27/24 Unknown History escitalopram oxalate 10 mg tablet 15 mg PO QAM 04/25/23 05/27/24 Unknown History pen needle, diabetic 32 gauge x #120 ea 08/20/23 05/27/24 Unknown Rx (BD Jocelyn 2nd Gen Pen Needle) acetaminophen 325 mg tablet See Rx Instructions .Route 05/27/24 05/27/24 Unknown History .COMPLEX PRN pain or elevated temp apixaban 5 mg tablet (Eliquis) 5 mg PO DAILY 05/27/24 05/27/24 05/26/24 History aspirin 81 mg tablet,delayed 81 mg PO DAILY 05/27/24 05/27/24 05/26/24 History release atorvastatin 40 mg tablet (Lipitor) 40 mg PO BEDTIME 05/27/24 05/27/24 Unknown History bisacodyl 10 mg rectal suppository 10 mg MA Q12H PRN Constipation 05/27/24 05/27/24 Unknown History (Dulcolax (bisacodyl)) collagenase clostridium histo. 250 See Rx Instructions .Route .COMPLEX 05/27/24 05/27/24 Unknown History unit/gram topical ointment (Santyl) dextran 70-hypromellose eye drops 1 drp ophthalmic (eye) Q4H PRN Dry 05/27/24 05/27/24 Unknown History in a dropperette (Artificial Tears Eyes (PF) drops in a dropperette) diltiazem HCl 180 mg 180 mg PO DAILY 05/27/24 05/27/24 Unknown History capsule,extended release 24 hr, controlled glucagon HCl 1 mg solution for 1 mg SUBCUT PRN PRN low blood sugar 05/27/24 05/27/24 Unknown History injection (Glucagon (HCl) Emergency Kit) insulin lispro 100 unit/mL See Rx Instructions .Route .COMPLEX 05/27/24 05/27/24 Unknown History subcutaneous pen levothyroxine 175 mcg tablet 175 mcg PO QAM 05/27/24 05/27/24 Unknown History loperamide 2 mg tablet See Rx Instructions .Route 05/27/24 05/27/24 Unknown History .COMPLEX PRN Diarrhea magnesium hydroxide 400 mg/5 mL 30 ml PO Q12H PRN Constipation 05/27/24 05/27/24 Unknown History oral suspension (Milk of Magnesia) mirtazapine 7.5 mg tablet 7.5 mg PO QAM 05/27/24 05/27/24 Unknown History dwpetoxd-ebpowtyyg-lgvqezwr 3.5 1 drp ophthalmic (eye) BEDTIME 05/27/24 05/27/24 Unknown History mg/mL-10,000 unit/mL-0.1% eye drops pantoprazole 40 mg tablet,delayed 40 mg PO BID 05/27/24 05/27/24 Unknown History release prednisolone acetate 1 % eye See Rx Instructions .Route .COMPLEX 05/27/24 05/27/24 Unknown History drops,suspension prednisone 10 mg tablet 10 mg PO DAILY RA 05/27/24 05/27/24 Unknown History ropinirole 0.5 mg tablet 0.5 mg PO BID restless leg syndrom 05/27/24 05/27/24 Unknown History triamcinolone acetonide 0.5 % 1 applic topical PRN PRN Skin 05/27/24 05/27/24 Unknown History topical cream Irritation clopidogrel 75 mg tablet 75 mg PO DAILY #30 tabs 06/02/24 Unknown Rx hydrocodone 10 mg-acetaminophen 1 tab PO Q8H PRN Pain #10 tabs 06/02/24 Unknown Rx 325 mg tablet insulin glargine 100 unit/mL (3 7 unit (0.07 mL) SUBCUT QPM #15 mL 06/02/24 Unknown Rx mL) subcutaneous pen (Basaglar KwikPen U-100 Insulin) Allergies Allergy/AdvReac Type Severity Reaction Status Date / Time topiramate Allergy Severe ADR-Halluci Verified 08/20/23 13:27 nating Opioids - Morphine Analogues Allergy Intermediate Unresponsiv Verified 08/20/23 13:27 e PFSH Acute PFSH: Medical History Atherosclerotic heart disease of [place] coronary artery without angina pectoris Cellulitis, unspecified Depression Stroke Urinary tract infection Mixed hyperlipidemia Hypothyroidism, unspecified High blood pressure Anxiety Thyroid disease Pain in left elbow History of fracture of arm Rash Debility Rheumatoid arthritis Family History Father Hypertension Brother Heart attack Sister Heart attack Brother Heart attack Mother Lung cancer Social History Smoking and tobacco/nicotine status: former use of tobacco/nicotine Alcohol intake: former Substance/Drug Use: never Physical Exam Narrative: Legally blind left eye Crusting noted right eye Clinically she has mild fluid overload Skin wrinkling noted Bilateral heel eschar covered with dressing Stage I ulcer sacral area Tong catheter exchanged with a new 1 Abdomen soft distended A-fib RVR variable S1-S2, pulse 110 Currently on Levophed GCS 15 Able to move her extremities Complaining of back pain Able to answer my questions appropriately Currently on 2 L nasal cannula I did not appreciate any rhonchi however she has mild crackles at base of the lungs No skin mottling A&P Assessment and plan (1) Peripheral artery disease: (2) Mixed hyperlipidemia: (3) Diabetes mellitus: Qualifiers: Diabetes mellitus type: type 2 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 Diabetes mellitus complication status: with hyperglycemia Qualified Code(s): E11.65 - Type 2 diabetes mellitus with hyperglycemia; Z79.4 - 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 worker (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) use of insulin (4) Diabetic ulcer of foot associated with diabetes mellitus due to underlying condition, limited to breakdown of skin: (5) Complicated UTI (urinary tract infection): (6) Urinary tract infection: (7) Rheumatoid arthritis: (8) Pressure ulcer, heel, left, unstageable: (9) Pressure ulcer of right heel, unstageable: (10) Lumbar disc disease with radiculopathy: (11) Facet arthropathy, lumbar: (12) Rash: (13) Debility: (14) Septic shock: (15) Catheter-associated urinary tract infection: (16) Chronic anemia: (17) Pseudoaneurysm: Plan Septic shock Patient takes prednisone for her rheumatoid arthritis on daily basis Will give her stress dose steroids Started on Levophed Not a septic bolus candidate because of CHF Criteria met with leukocytosis, fever tachypnea tachycardia Will request lactic acid, lactic acid was 2.4 at the outside hospital No encephalopathy Source of infection seems to be UTI, cauti needs to be ruled out Repeat UA with new Tong catheter Blood cultures which were taken 48 hours ago at outside hospitals are negative to date Urine culture was taken at [facility] today as well I will repeat UA and urine culture with new Tong catheter Stress dose steroids administered anticipating worsening of leukocytosis After 12 hours she can be transition to prednisone regular dose Diastolic CHF acute exacerbation X-ray consistent with fluid overload pulm edema Will start diuretics once blood pressure stabilizes Chronic anemia: Monitor for now hold Plavix and Eliquis for next 12 hours, hemoglobin has remained stable Repeat CBC Pseudoaneurysm right groin Monitor closely, does not have significant tenderness right groin area however our differential will definitely include infected hematoma if her fever does not subside after change of Tong catheter She also has sacral area ulcer, bilateral heel eschars: Need offloading dressing, Peripheral vascular disease status post intervention in May Will continue Plavix and Eliquis after 12 hours DVT prophylaxis: Covered with above-mentioned antiplatelet anticoagulating agent Bedbound, Antonino lift dependent, requesting long-term placement, call case management consulted DNR/DNI Consistent carb diet: Insulin sliding scale Patient had hypoglycemic event during last visit monitor closely for now PICC line requested Continue levothyroxine Attestations Medical Necessity Statement*: More than 2 midnights anticipated Diagnoses Peripheral artery disease I73.9 Mixed hyperlipidemia E78.2 Type 2 diabetes mellitus with hyperglycemia, with long-term current use of insulin E11.65; Z79.4 Diabetes mellitus type: type 2 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 use Diabetes mellitus complication status: with hyperglycemia Diabetic ulcer of foot associated with diabetes mellitus due to underlying condition, limited to breakdown of skin E08.621; L97.501 Complicated UTI (urinary tract infection) N39.0 Urinary tract infection N39.0 Rheumatoid arthritis M06.9 Pressure ulcer, heel, left, unstageable L89.620 Pressure ulcer of right heel, unstageable L89.610 Lumbar disc disease with radiculopathy M51.16 Facet arthropathy, lumbar M47.816 Rash R21 Debility R53.81 Septic shock A41.9; R65.21 Catheter-associated urinary tract infection T83.511A; N39.0 Chronic anemia D64.9 Pseudoaneurysm I72.9
--- NOTE | 2024-06-19 02:30 | ECG_ITS ---
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 Measurements Intervals [place] Rate: 110 P: 0 OK: 0 QRS: 68 QRSD: 97 T: 185 QT: 360 QTc: 488 Interpretive Statements ATRIAL FIBRILLATION WITH RAPID VENTRICULAR RESPONSE INCOMPLETE RIGHT BUNDLE BRANCH BLOCK [90+ ms QRS DURATION, TERMINAL R IN V1/V2, 40+ ms S IN I/aVL/V4/V5/V6] NONSPECIFIC ST & T-WAVE ABNORMALITY INTERPRETATION BASED ON A DEFAULT AGE OF 40 YEARS Compared to ECG 05/27/2024 12:26:39 Incomplete right bundle-branch block now present T-wave abnormality still present Electronically Signed On 06-19-2024 16:53:12 INSURANCE CLAIMS ASSISTANT by Jeff Liang M.D. [email or web address]
[2024-06-19] MEDS: norepinephrine 4 MG/250 ML BAG 7.5 MG IV (02:49)
[2024-06-19] MEDS: hydrocortisone 100 mg/2 mL SDV IVP (02:52)
[2024-06-19 03:32] LABS: Basophils # 0.2 10^3/uL (0.0-0.1); Eosinophils # 0.1 10^3/uL (0.0-0.8); Eosinophils % 0.3 %; Hematocrit 30.6 % (36-47); Lymphocytes # 3.1 10^3/uL (0.8-4.8); Lymphocytes % 18.2 %; Mean Corpuscular HGB Conc 29.4 g/dL (30-55); Mean Corpuscular Hemoglobin 25.4 pg (27-33); Mean Corpuscular Volume 86.2 fl (85-98); Mean Platelet Volume 10.5 fL (7.4-10.4); Monocytes # 1.3 10^3/uL (0.2-0.9); Monocytes % 7.7 %; Neutrophils # 12.08 10^3/uL (1.8-7.7); Neutrophils % 72.3 %; Nucleated Red Blood Cells % 0 %; Platelet Count 504 10^3/cmm (157-399); Red Blood Count 3.55 10^6/uL (3.85-5.65); Red Cell Distribution Width 17.1 % (12.1-15.1); White Blood Count 16.72 10^3/uL (3.29-11.43)
[2024-06-19 03:43] LABS: Lactate (Lactic Acid level) 2.2 mmol/L (0.5-2.2)
[2024-06-19 03:44] LABS: Troponin(5th) Baseline 52 ng/L (0-10)
[2024-06-19 03:53] LABS: NT Pro B Type Natriuretic Pept 27065 pg/mL (0-125); Procalcitonin 0.86 ng/mL (0-0.5)
[2024-06-19 04:04] LABS: Alanine Aminotransferase < 5 U/L (0-33); Alkaline Phosphatase 130 U/L (35-105); Anion Gap 19.7 (5-19); Aspartate Amino Transferase 8 U/L (0-32); Blood Urea Nitrogen 20 mg/dL (8-23); C Reactive Protein 241.6 mg/L (0.0-4.9); Calcium 8.6 mg/dL (8.5-10.5); Carbon Dioxide 23 mmol/L (22-29); Chloride 97 mmol/L (98-107); Creatinine Clr Calc Pharmacy 42.4539; Glomerular Filtration Rate 40.9 mL/min (90-130); Glucose 218 mg/dL (65-115); Magnesium 1.7 mg/dL (1.7-2.3); Osmolality Calculated 291 mOsm/kg (285-295); Potassium 3.7 mmol/L (3.5-5.1); Sodium 136 mmol/L (136-145); Total Bilirubin 0.7 mg/dL (0.15-1.2)
--- NOTE | 2024-06-19 04:27 | ECG_ITS ---
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 Measurements Intervals [place] Rate: 102 P: 0 [place]: 0 QRS: -69 QRSD: 110 T: 179 QT: 390 QTc: 508 Interpretive Statements ATRIAL FIBRILLATION WITH RAPID VENTRICULAR RESPONSE INDETERMINATE AXIS NONSPECIFIC ST & T-WAVE ABNORMALITY Compared to ECG 06/19/2024 02:30:28 Indeterminate axis now present Incomplete right bundle-branch block no longer present T-wave abnormality still present Electronically Signed On 06-19-2024 17:00:32 FLUORESCENT LIGHTING MODEL MAKER by Jeff Liang M.D. [id number]
[2024-06-19] MEDS: cefepime 2,000 mg SDV 2000 MG IVP (04:45)
[2024-06-19] MEDS: piperacillin-tazobactam 3.375 GM in sodium chloride 0.9% (plus) 50 ML IV ×3 (04:45→21:28)
[2024-06-19 05:48] LABS: Troponin 5 2HR 47.39 ng/L (0-10)
[2024-06-19 05:51] LABS: Troponin 5 2HR Delta -4.61 ABS# (0-10)
[2024-06-19] MEDS: HYDROmorphone 1 mg/mL INJ 1 mL 0.4 MG IVP (06:34)
[2024-06-19 07:51] LABS: Glucose Point of Care 291 mg/dL (70-110)
--- NOTE | 2024-06-19 07:56 | XR_ITS ---
WS: [id number] PORTABLE CHEST HISTORY: Post PICC insertion COMPARISON: 05/27/2024 RIGHT PICC line in good position terminating near the cavoatrial junction. Diffuse hazy attenuation of both lungs is probably related to pulmonary edema. No focal consolidation s. No pleural effusion or pneumothorax. Cardiac size: Moderately enlarged heart. Mediastinum/Aorta: Mildly prominent mediastinum is due to position of the patient. No osseous abnormality seen. XR/XR chest 1V portable [id number] IMPRESSION: Satisfactory interval placement RIGHT PICC line.
[2024-06-19 08:07] LABS: Bilirubin Urine 2+ (Negative); Blood Urine 3+ (Negative); Glucose Urine UA Trace (Normal); Ketones Urine Trace (Negative); Leukocyte Esterase Urine 2+ (Negative); Nitrate Urine Negative (Negative); Protein Urine 3+ (Negative); Urine Appearance Turbid (CLEAR); Urine Color Dark Yellow (Yellow)
[2024-06-19 08:12] LABS: Add Urine Microscopic? YES; Bacteria Urine 4+ /hpf; Squamous Epithelial Cell Urine 21-50 /hpf (0-5); WBC Urine >100 /hpf (0-5)
[2024-06-19 08:27] LABS: Add Urine Culture? Yes; UA Slide Review UA Slide Review Perf
--- NOTE | 2024-06-19 08:27 | ECG_ITS ---
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 Measurements Intervals [place] Rate: 101 P: 0 [place]: 0 QRS: -55 QRSD: 105 T: 153 QT: 377 QTc: 490 Interpretive Statements ATRIAL FIBRILLATION WITH RAPID VENTRICULAR RESPONSE INDETERMINATE AXIS PATTERN CONSISTENT WITH PULMONARY DISEASE INCOMPLETE RIGHT BUNDLE BRANCH BLOCK [90+ ms QRS DURATION, TERMINAL R IN V1/V2, 40+ ms S IN I/aVL/V4/V5/V6] LEFT ANTERIOR FASCICULAR BLOCK [QRS AXIS <= -45, QR IN I, RS IN II] NONSPECIFIC ST & T-WAVE ABNORMALITY Compared to ECG 06/19/2024 04:40:01 Incomplete right bundle-branch block now present Left anterior fascicular block now present T-wave abnormality still present Electronically Signed On 06-19-2024 17:00:37 JEWELRY POLISHER by Jeff Liang M.D. [id number]
--- NOTE | 2024-06-19 08:36 | PC.PHAR ---
Addendum entered by Judith Campos 06/19/24 09:25: Pharmacy is not open yet. I assume it is weather related. Verified all pt meds according to current external med list. Dosage changes were made to Diltiazem from 180mg to 120mg, Escitalopram from 10mg to 20mg, and Mirtazapine from 7.5mg to 15mg. Original Note: Pt unable to verify her current medications-will follow up with [facility] when they open at 9am
--- NOTE | 2024-06-19 09:21 | PICC.NOTE ---
Triple lumen PICC placed to right brachial vein. Referred to vascular access nurse for PICC placement due to use of IV vasopressors. Pt drowsy from recent pain med administration. Unable to reach pt family via phone. Urgent consent given per Dr. Salinas for line placement. Right arm assessed with right brachial vein measuring 3.4 mm, straight, and apparent best choice for placement. Using sterile technique and MST, right brachial vein accessed x 1 stick. Mid-arm circumference measured 10 cm from right AC 29 cm. Trimmed cath 42 cm with 1 cm external length noted. CXR shows tip in cavoatrial junction, in good position for use per radiologist. Line secured with stat-lock. Insertion site covered with Secureport IV and TSM. Report given to bedside nurse, RICHARD Subramanian.
[2024-06-19] MEDS: FUROsemide 10 mg/mL SDV 2mL 20 MG IVP (09:23)
[2024-06-19] MEDS: insulin lispro 100 unit/1 mL SUBCUT ×3 (09:23→18:17)
[2024-06-19] MEDS: pantoprazole 40 mg SDV IVP ×2 (09:23→18:17)
[2024-06-19] MEDS: sodium chloride 0.9% 500 ML IV (10:33)
[2024-06-19] MEDS: vancomycin 2,000 MG/400 ML PIGGYBACK 200 MG IV (10:33)
[2024-06-19] MEDS: lanolin oint 7 gm 1 APPLIC TOPICAL (10:45)
[2024-06-19 10:48] LABS: Troponin 5 6HR 45.84 ng/L (0-10)
[2024-06-19 10:53] LABS: Troponin 5 6HR Delta -6.16 ng/L (0-12)
--- NOTE | 2024-06-19 11:07 | CT_ITS ---
WS: [id number] CT CHEST, ABDOMEN AND PELVIS NONCONTRAST HISTORY: CARISSA, recent hydronephrosis TECHNIQUE: Contiguous 5 mm axial imaging performed through the chest, abdomen and pelvis without IV c ontrast, oral contrast has no been provided. Coronal and sagittal reformats chest. Coronal and sagitt al reformats through the abdomen and pelvis. All CT scans at [facility] use at least one of t hese dose optimization techniques: automated exposure control; mA and/or kV adjustment per patient si ze (includes targeted exams where dose is matched to clinical indication); or iterative reconstructio n. CONTRAST: None DLP: 1094.86 mGy.cm COMPARISON: 05/29/[address]: Scattered pulmonary opacifications and edema. Scattered opacifications throughout both lung s but slightly greater towards the apices. Heart is enlarged. Coronary artery calcifications are diff use. No pneumothorax. Small but numerous mediastinal and hilar lymph nodes. Normal size aorta. Enlarg ed pulmonary artery. Abdomen CT: Small hiatal hernia. No interval change in appearance of the liver or spleen. Mild gallbl adder hydrops with increased attenuation. Pancreatic atrophy. No adrenal mass. No renal obstruction. Small amount of fluid adjacent to the RIGHT kidney. Beam artifact through the kidneys secondary to ov erlying wires and leads. Atherosclerosis aorta. No GI tract obstruction. No ascites. Soft tissue nodu le in the anterior abdominal wall is probably an injection site. Pelvic CT: There is a small amount of free fluid in the pelvis. Urinary bladder is catheterized. Diff use bladder wall thickening is reidentified. New soft tissue hematoma at the RIGHT inguinal region me asures 3.7 x 9.7 cm. RIGHT inguinal hematoma does appear to be contiguous with the RIGHT groin vessel s. New since 05/29/2024. Advanced degenerative changes in the lower thoracic and entire lumbar spine. Prior RIGHT hip [place]IF. CT/[place] [id number] IMPRESSION: 1. Pulmonary edema with scattered opacifications. Scattered opacifications are probably pneumonia, focal edema or pneumonitis. 2. Enlarged heart. 3. Pulmonary hypertension. 4. No hydronephrosis. 5. Tong catheter in the urinary bladder. Continued bladder wall thickening. 6. New RIGHT inguinal hematoma extending to the RIGHT groin vessels. Hematoma measures 3.7 x 9.7 cm.
--- NOTE | 2024-06-19 11:14 | CT_ITS ---
WS: [id number] CT HEAD NONCONTRAST HISTORY: stroke TECHNIQUE: Contiguous axial imaging performed through the brain. Bone and soft tissue windows. Sagitt al and coronal reformats reviewed. All CT scans at [facility] use at least one of these dose optimization techniques: automated exposure control; mA and/or kV adjustment per patient size (includ es targeted exams where dose is matched to clinical indication); or iterative reconstruction. DLP: 1230.08 mGy.cm COMPARISON: 06/19/2013 Moderate symmetric atrophy. No hemorrhage. Moderate progression of cerebral atrophy and moderate small vessel disease. Ventricles: Mild ventriculomegaly on the basis of atrophy. Paranasal sinuses: Mild mucoperiosteal thickening in the maxillary and ethmoid air cells. Mastoid air cells: Well pneumatized. Calvarium and scalp: Skull is intact with no soft tissue edema or swelling. CT/CT head wo con* [id number] IMPRESSION: 1. No acute intracranial hemorrhage or edema. 2. Progressive cerebral atrophy and moderate small vessel ischemic change sinc e 2014.
[2024-06-19 11:33] LABS: Glucose Point of Care 312 mg/dL (70-110)
--- NOTE | 2024-06-19 12:50 | PHA.VACGOAL ---
Vancomycin Goal - Goal Vancomycin Goal:: 15-20 mg/L Vancomycin Indication:: Other (SEPSIS) - Therapy Current therapy:: Pip/Tazo Day of therpy:: Day [1]of [] . Actual body weight (kg): 81 kg - Data Labs: WBC 16.72 10^3/uL (3.29-11.43) H 06/19/24 02:54 RBC 3.55 10^6/uL (3.85-5.65) L 06/19/24 02:54 Hgb 9.00 g/dL (11.27-16.99) L 06/19/24 02:54 Hct 30.6 % (36-47) L 06/19/24 02:54 MCV 86.2 fl (85-98) 06/19/24 02:54 MCH 25.4 pg (27-33) L 06/19/24 02:54 MCHC 29.4 g/dL (30-55) L 06/19/24 02:54 RDW 17.1 % (12.1-15.1) H 06/19/24 02:54 Sodium 136 mmol/L (136-145) 06/19/24 02:54 Potassium 3.7 mmol/L (3.5-5.1) 06/19/24 02:54 Chloride 97 mmol/L (98-107) L 06/19/24 02:54 Carbon Dioxide 23 mmol/L (22-29) 06/19/24 02:54 Anion Gap 19.7 (5-19) H 06/19/24 02:54 BUN 20 mg/dL (8-23) 06/19/24 02:54 Creatinine 1.3 mg/dL (0.5-0.9) H 06/19/24 02:54 GFR Calculation 40.9 mL/min (90-130) L 06/19/24 02:54 Treatment plan:: new consult Regimen:: New start Vancomycin for Sepsis. Prior vancomycin history found 05/29/24 trough of 17.7 mg/L with dose of 1250 mg q12h. Renal function has worsened since this trough Scr 0.6-0.7 mg/dL to 1.3 mg/dL. Load dose of 2000 mg ordered. Maintenance dose of 1250 mg q24h started. Pharmacy will continue to monitor daily.
[2024-06-19] MEDS: sodium chloride 0.9% 1,000 ML 50 ML IV (13:07)
--- NOTE | 2024-06-19 13:18 | P.MISC_ITS ---
Miscellaneous Note Purpose of Documentation: Overnight labs, records from [facility] and H&P reviewed. Per review of [facility] records, it appears patient may have been hospice. A wellness check appears to have been called on her and then EMS and hospice arrived together. EMS then decided to bring her to [facility]. 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 She had been at their ER 2 days earlier complaining of back pain at which time CT of the lumbar spine had shown lumbar stenosis. A pelvic CT had shown a right groin pseudoaneurysm. Hb is currently at 9. She is currently obtunded, does not respond verbally to any verbal or painful stimuli. She appears to be clinically dry , dry parched mucus membranes, tongue coating. Ordered ct head to assess for stroke. Patient is currently on Levophed at 3 mics. Concern for septic shock. Likely source to be UTI. Recent urine cultures with Enterococcus faecalis. Discontinue cefepime. Continue piperacillin/tazobactam. Does not require dual antipseudomonal coverage for now. Add vancomycin empirically. Review of recent CT from May 2024 shows patient had a nonobstructing ureteral calculus and bilateral hydronephrosis related to possible cystitis. Will obtain CT of the abdomen and pelvis now to assess for any obstructive pyelonephritis that could explain her sepsis. Elevated BNP, bilateral scattered infiltrates noted. Chest is clear to auscultation currently. She has not had any urine output. High urine specific gravity. Patient appearing to be clinically dry therefore will start normal saline 50 cc an hour cautiously and watch for any signs of fluid overload. Last echocardiogram shows EF of 55 to 60%. We do not currently have adhesive patches to obtain [place]et[place] monitoring. A-fib is currently rate controlled. Continue amiodarone at 0.5 mg/min. Make patient n.p.o. until more alert and awake.
[2024-06-19] MEDS: artificial tears Op Soln 15 mL Btl 1 DROP EYE-BOTH ×3 (13:44→22:39)
[2024-06-19] MEDS: ciprofloxacin 0.3% Op Soln 2.5 mL Btl 1 DROP EYE-BOTH ×2 (17:08→21:28)
[2024-06-19 18:45] LABS: MRSA PCR OZH (swab) MRSA Detected (Not Detecte)
[2024-06-19 19:24] LABS: Adenovirus Not Detected (NOT DETECT); Chlamydia Pneumoniae Not Detected (NOT DETECT); Coronavirus 229E,HKU1,NL63,OC4 Not Detected (NOT DETECT); Human Metapneumovirus Not Detected (NOT DETECT); Human Rhinovirus/Enterovirus Not Detected (NOT DETECT); Influenza A Not Detected (NOT DETECT); Influenza A H1 Not Detected (NOT DETECT); Influenza A H1-2009 Not Detected (NOT DETECT); Influenza A H3 Not Detected (NOT DETECT); Influenza B Not Detected (NOT DETECT); Mycoplasma Pneumoniae Not Detected (NOT DETECT); Parainfluenza Virus Type 1 Not Detected (NOT DETECT); Parainfluenza Virus Type 2 Not Detected (NOT DETECT); Parainfluenza Virus Type 3 Not Detected (NOT DETECT); Parainfluenza Virus Type 4 Not Detected (NOT DETECT); Respiratory Syncytial Virus A Not Detected (NOT DETECT); Respiratory Syncytial Virus B Not Detected (NOT DETECT); SARS-COV-2 Not Detected (NOT DETECT)
[2024-06-19] MEDS: atorvastatin 40 mg Tablet PO (21:28)
[2024-06-19] MEDS: apixaban 5 mg Tablet PO (21:28)
--- NOTE | 2024-06-19 21:45 | PC.NURSE ---
Pain Patient calling out in pain and requesting pain medication. Dr. Salinas contacted; order received for 5-325 mg oxycodone PO Q4H PRN for pain.
[2024-06-19] MEDS: oxyCODONE-APAP 5-325 mg Tablet 1 TAB PO (21:59)
[2024-06-20] VITALS (103 sets, daily range): BP systolic 76–146; BP diastolic 40–102; PULSE 75–100; RESP 4–34; TEMP 36.4–36.6; O2SAT 81–100; BMI 32.5
[2024-06-20] MEDS: oxyCODONE-APAP 5-325 mg Tablet 1 TAB PO ×5 (02:25→22:21)
[2024-06-20] MEDS: lanolin oint 7 gm 1 APPLIC TOPICAL ×2 (02:26→19:28)
[2024-06-20] MEDS: artificial tears Op Soln 15 mL Btl 1 DROP EYE-BOTH ×5 (02:26→22:58)
[2024-06-20 03:51] LABS: Basophils # 0.1 10^3/uL (0.0-0.1); Basophils % 0.6 %; Hematocrit 25.4 % (36-47); Lymphocytes # 4.1 10^3/uL (0.8-4.8); Lymphocytes % 30.2 %; Mean Corpuscular HGB Conc 29.5 g/dL (30-55); Mean Corpuscular Hemoglobin 26.5 pg (27-33); Mean Corpuscular Volume 89.8 fl (85-98); Mean Platelet Volume 10.8 fL (7.4-10.4); Monocytes # 1.1 10^3/uL (0.2-0.9); Monocytes % 8.3 %; Neutrophils # 8.18 10^3/uL (1.8-7.7); Neutrophils % 60.5 %; Nucleated Red Blood Cells % 0 %; Platelet Count 438 10^3/cmm (157-399); Red Blood Count 2.83 10^6/uL (3.85-5.65); Red Cell Distribution Width 17.5 % (12.1-15.1); White Blood Count 13.53 10^3/uL (3.29-11.43)
[2024-06-20 04:03] LABS: Alanine Aminotransferase < 5 U/L (0-33); Albumin Level 2.5 g/dL (3.5-5.2); Alkaline Phosphatase 112 U/L (35-105); Anion Gap 20.2 (5-19); Aspartate Amino Transferase 9 U/L (0-32); Blood Urea Nitrogen 36 mg/dL (8-23); Calcium 8.4 mg/dL (8.5-10.5); Carbon Dioxide 23 mmol/L (22-29); Chloride 101 mmol/L (98-107); Creatinine Clr Calc Pharmacy 27.5088; Globulin 4.5 g/dL (1.3-4.6); Glomerular Filtration Rate 24.9 mL/min (90-130); Glucose 124 mg/dL (65-115); Osmolality Calculated 302 mOsm/kg (285-295); Potassium 3.2 mmol/L (3.5-5.1); Sodium 141 mmol/L (136-145); Total Bilirubin 0.5 mg/dL (0.15-1.2)
[2024-06-20] MEDS: levothyroxine 175 mcg Tablet PO (05:44)
[2024-06-20] MEDS: piperacillin-tazobactam 3.375 GM in sodium chloride 0.9% (plus) 50 ML IV ×3 (05:45→22:01)
[2024-06-20 07:29] LABS: Glucose Point of Care 141 mg/dL (70-110)
[2024-06-20 07:29] LABS: Glucose Point of Care 133 mg/dL (70-110)
[2024-06-20 07:29] LABS: Glucose Point of Care 139 mg/dL (70-110)
[2024-06-20 07:29] LABS: Glucose Point of Care 179 mg/dL (70-110)
[2024-06-20] MEDS: sodium chloride 0.9% 1,000 ML 50 ML IV (08:42)
[2024-06-20] MEDS: pantoprazole 40 mg SDV IVP ×2 (08:43→17:47)
[2024-06-20] MEDS: acetaminophen 500 mg Tablet PO (10:21)
[2024-06-20] MEDS: ciprofloxacin 0.3% Op Soln 2.5 mL Btl 1 DROP EYE-BOTH ×4 (10:22→22:02)
[2024-06-20] MEDS: clopidogrel 75 mg Tablet PO (10:44)
[2024-06-20 11:48] LABS: Vancomycin Trough 20.6 ug/mL (10-15)
[2024-06-20] MEDS: insulin lispro 100 unit/1 mL SUBCUT (12:47)
[2024-06-20] MEDS: potassium chloride ER 20 mEq Tablet 40 MEQ PO (12:52)
[2024-06-20 12:57] LABS: Glucose Point of Care 180 mg/dL (70-110)
[2024-06-20 15:57] LABS: Blood Urea Nitrogen 37 mg/dL (8-23); Carbon Dioxide 22 mmol/L (22-29); Chloride 98 mmol/L (98-107); Creatinine Clr Calc Pharmacy 25.3998; Glomerular Filtration Rate 22.3 mL/min (90-130); Glucose 195 mg/dL (65-115); Osmolality Calculated 300 mOsm/kg (285-295); Sodium 138 mmol/L (136-145)
[2024-06-20 15:58] LABS: Anion Gap 21.4 (5-19); Potassium 3.4 mmol/L (3.5-5.1)
--- NOTE | 2024-06-20 16:26 | P.PN_ITS ---
Subjective 2 Subjective: awake and alert today, states she is not on hospice ,her son is the one who is on hospice. She does not wish to live with her son any longer to suspected drug use cr worsening, urine output 400 cc Medications: Reviewed: Yes Vitals/I&O/Wt Last Vital Signs Temp 97.7 F 06/20/24 12:30 Pulse 83 06/20/24 15:00 Resp 14 06/20/24 15:00 BP 112/69 06/20/24 15:00 Pulse Ox 97 06/20/24 15:00 O2 Del Method Room Air 06/20/24 12:30 O2 Flow Rate 2 06/19/24 16:00 06/20/24 06/20/24 06/20/24 06:59 14:59 22:59 Intake Total 50 / 4024.590 2779.267 / 1540.267 Output Total 100 / 300 125 / 125 Balance -50 / 103.304 9010.267 / 1415.267 Weight last 48 hrs Weight 83.5 kg Weight 81 kg Weight 81.5 kg Physical Exam 2 Narrative: General: No acute distress, AO x3 HEENT: PERRLA, pupils bilaterally equal and reactive, pallors not present Chest: Normal vesicular breath sounds, no added sounds, equal good air entry bilaterally CVS: S1-S2 regular, no murmurs, no tachycardia, no gallops, no rubs Abdomen: Soft, nontender, no organomegaly, bowel sounds present Neuro: No focal deficits, no facial deformity, AO x3, power 5/5 in all limbs Urinary Catheter Management: Tong: Cath Placed During This Visit: yes Reason for Continuing Indwelling Catheter: Accurate Measurement of Urinary Output in Critically Ill Patients Urinary Catheter Date of Insertion: 06/19/24 Urinary Catheter Time of Insertion: 02:41 Data 06/20/24 02:30 06/20/24 14:58 Micro: Microbiology 06/19/24 07:25 Urine Culture - Preliminary Urine,Clean Catch 06/19/24 05:01 Blood Culture - Preliminary Blood NEGATIVE TO DATE 06/19/24 04:55 Blood Culture - Preliminary Blood NEGATIVE TO DATE A&P Assessment and plan (1) Peripheral artery disease: (2) Mixed hyperlipidemia: (3) Diabetes mellitus: Qualifiers: Diabetes mellitus type: type 2 Diabetes mellitus terminal makeup operator insulin use: with terminal makeup operator use Diabetes mellitus complication status: with hyperglycemia Qualified Code(s): E11.65 - Type 2 diabetes mellitus with hyperglycemia; Z79.4 - senior care (current) use of insulin (4) Diabetic ulcer of foot associated with diabetes mellitus due to underlying condition, limited to breakdown of skin: (5) Complicated UTI (urinary tract infection): (6) Urinary tract infection: (7) Rheumatoid arthritis: (8) Pressure ulcer, heel, left, unstageable: (9) Pressure ulcer of right heel, unstageable: (10) Lumbar disc disease with radiculopathy: (11) Facet arthropathy, lumbar: (12) Rash: (13) Debility: (14) Septic shock: (15) Catheter-associated urinary tract infection: (16) Chronic anemia: (17) Pseudoaneurysm: Plan Septic shock Patient takes prednisone for her rheumatoid arthritis on daily basis Will give her stress dose steroids Started on Levophed Not a septic bolus candidate because of CHF Criteria met with leukocytosis, fever tachypnea tachycardia Will request lactic acid, lactic acid was 2.4 at the outside hospital No encephalopathy Source of infection seems to be UTI, cauti needs to be ruled out Repeat UA with new Tong catheter Blood cultures which were taken 48 hours ago at outside hospitals are negative to date Urine culture was taken at [facility] today as well I will repeat UA and urine culture with new Tong catheter Stress dose steroids administered anticipating worsening of leukocytosis After 12 hours she can be transition to prednisone regular dose Diastolic CHF acute exacerbation X-ray consistent with fluid overload pulm edema Will start diuretics once blood pressure stabilizes Chronic anemia: Monitor for now hold Plavix and Eliquis for next 12 hours, hemoglobin has remained stable Repeat CBC Pseudoaneurysm right groin Monitor closely, does not have significant tenderness right groin area however our differential will definitely include infected hematoma if her fever does not subside after change of Tong catheter She also has sacral area ulcer, bilateral heel eschars: Need offloading dressing, Peripheral vascular disease status post intervention in May Will continue Plavix and Eliquis after 12 hours DVT prophylaxis: Covered with above-mentioned antiplatelet anticoagulating agent Bedbound, Antonino lift dependent, requesting alf placement, call case management consulted DNR/DNI Consistent carb diet: Insulin sliding scale Patient had hypoglycemic event during last visit monitor closely for now PICC line requested Continue levothyroxine Rob 10,2025 Overnight labs, records from [facility] and H&P reviewed. Per review of [facility] records, it appears patient may have been hospice. A wellness check appears to have been called on her and then EMS and hospice arrived together. EMS then decided to bring her to [facility]. 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 She had been at their ER 2 days earlier complaining of back pain at which time CT of the lumbar spine had shown lumbar stenosis. A pelvic CT had shown a right groin pseudoaneurysm. Hb is currently at 9. She is currently obtunded, does not respond verbally to any verbal or painful stimuli. She appears to be clinically dry , dry parched mucus membranes, tongue coating. Ordered ct head to assess for stroke. Patient is currently on Levophed at 3 mics. Concern for septic shock. Likely source to be UTI. Recent urine cultures with Enterococcus faecalis. Discontinue cefepime. Continue piperacillin/tazobactam. Does not require dual antipseudomonal coverage for now. Add vancomycin empirically. Review of recent CT from May 2024 shows patient had a nonobstructing ureteral calculus and bilateral hydronephrosis related to possible cystitis. Will obtain CT of the abdomen and pelvis now to assess for any obstructive pyelonephritis that could explain her sepsis. Elevated BNP, bilateral scattered infiltrates noted. Chest is clear to auscultation currently. She has not had any urine output. High urine specific gravity. Patient appearing to be clinically dry therefore will start normal saline 50 cc an hour cautiously and watch for any signs of fluid overload. Last echocardiogram shows EF of 55 to 60%. We do not currently have adhesive patches to obtain Cheetah monitoring. A-fib is currently rate controlled. Continue amiodarone at 0.5 mg/min. Make patient n.p.o. until more alert and awake. Jun More alert and awake today. States she is not on hospice, states she feels unsafe in her current living condition at home with son. Cr worsened at 2.2, urine output 450 cc, continue gentle hydration for now with NS @ 50 cc/hr , has h/o CHF and pulm HTN with elevated BNP > 20,000. Continue to hold SEUN inhibitors. Off levophed since last evening. CT CAP with pneumonia at B/L bases per personal interpretation. MRSA nares +. continue Zosyn and vancomycin for empiric rx of pneumonia and UTI. Hb at 7.5 today, appears to be close to recent baseline of ~7.5 from may 2024. has right groin hematoma. Hold eliquis. Continue Plavix. Check FOBT. recent peripheral aretrial stenting for LE ischemic ulcers. B/L heel ulcers noted, new pressure sore over left ankle noted. Dressing with Vaseline gauze and optifoam. No gross signs of cellulitis at any of these sites. A fib is well controlled today. D/c amio drip, change to po amiodarone 400mg BID. Holding off on resuming cardizem as just came off pressors. Will need extensive disposition planning, possibly SNF. resume home dose of escitalopram Noted conjunctivitis, started on artificial tears and cipro eye drops. Start dysphagia diet. Attestations 2 Medical Necessity Statement*: multiple changes as noted above, iv abx. transition amio, monitor off pressors Coding Level of Care Code Acute Code for Chg Fwd High MDM includes number and complexity of problems actively addressed during encounter, amount and/or complexity of data reviewed/ordered and described risk of complication, morbidity or mortality of management as documented Diagnoses Peripheral artery disease I73.9 Mixed hyperlipidemia E78.2 Type 2 diabetes mellitus with hyperglycemia, with long-term current use of insulin E11.65; Z79.4 Diabetes mellitus type: type 2 Diabetes mellitus terminal makeup operator insulin use: with terminal makeup operator use Diabetes mellitus complication status: with hyperglycemia Diabetic ulcer of foot associated with diabetes mellitus due to underlying condition, limited to breakdown of skin E08.621; L97.501 Complicated UTI (urinary tract infection) N39.0 Urinary tract infection N39.0 Rheumatoid arthritis M06.9 Pressure ulcer, heel, left, unstageable L89.620 Pressure ulcer of right heel, unstageable L89.610 Lumbar disc disease with radiculopathy M51.16 Facet arthropathy, lumbar M47.816 Rash R21 Debility R53.81 Septic shock A41.9; R65.21 Catheter-associated urinary tract infection T83.511A; N39.0 Chronic anemia D64.9 Pseudoaneurysm I72.9
[2024-06-20] MEDS: albumin 12.5 GM/250 ML VIAL IV (17:46)
[2024-06-20] MEDS: amiodarone 200 mg Tablet 400 MG PO (17:47)
[2024-06-20] MEDS: triamcinolone 0.1% cream 15 gm 1 APPLIC TOPICAL (17:47)
[2024-06-20] MEDS: insulin glargine 100 units/1 mL 7 UNIT SUBCUT (18:21)
--- NOTE | 2024-06-20 19:23 | PC.NURSE ---
SHift SUmmary: uneventful shift. rested in bed throughout the day. No levophed required. Transitioned to oral amiodarone. Frequent complaints of pain which is relieved by repositioning and pain medication. tptal urine output has been 175 mL. Physician made aware. albumin given. continues to be on 50ml.hr fluid..
--- NOTE | 2024-06-20 19:26 | PC.NURSE ---
Yuliet Olguin, SIster - [phone]. Leighton - brother - Sister Angelo - [phone]
[2024-06-20 20:36] LABS: Glucose Point of Care 115 mg/dL (70-110)
[2024-06-20] MEDS: atorvastatin 40 mg Tablet PO (22:01)
[2024-06-21] VITALS (82 sets, daily range): BP systolic 93–142; BP diastolic 46–104; PULSE 75–113; RESP 9–24; TEMP 36.3–36.9; O2SAT 85–100; BMI 33.5
[2024-06-21 00:42] LABS: Glucose Point of Care 103 mg/dL (70-110)
[2024-06-21] MEDS: piperacillin-tazobactam 3.375 GM in sodium chloride 0.9% (plus) 50 ML IV ×3 (05:04→21:14)
[2024-06-21] MEDS: sodium chloride 0.9% 1,000 ML 50 ML IV (05:04)
[2024-06-21] MEDS: levothyroxine 175 mcg Tablet PO (05:06)
[2024-06-21] MEDS: artificial tears Op Soln 15 mL Btl 1 DROP EYE-BOTH ×5 (05:06→20:30)
[2024-06-21] MEDS: oxyCODONE-APAP 5-325 mg Tablet 1 TAB PO ×4 (05:17→20:18)
[2024-06-21 05:38] LABS: Basophils # 0.2 10^3/uL (0.0-0.1); Eosinophils # 0.1 10^3/uL (0.0-0.8); Eosinophils % 0.9 %; Lymphocytes # 3.5 10^3/uL (0.8-4.8); Lymphocytes % 33.2 %; Mean Corpuscular HGB Conc 29.2 g/dL (30-55); Mean Platelet Volume 10.4 fL (7.4-10.4); Monocytes # 0.8 10^3/uL (0.2-0.9); Monocytes % 7.8 %; Neutrophils # 5.84 10^3/uL (1.8-7.7); Neutrophils % 55.5 %; Nucleated Red Blood Cells % 0 %; Platelet Count 406 10^3/cmm (157-399); Red Blood Count 2.92 10^6/uL (3.85-5.65); Red Cell Distribution Width 18.1 % (12.1-15.1); White Blood Count 10.53 10^3/uL (3.29-11.43)
[2024-06-21 05:58] LABS: Creatine Phosphokinase 24 U/L (26-192); Ferritin 632 ng/mL (15-150); Iron 21 ug/dL (37-145); Percent Saturation 15.3 % (20-50); Total Iron Binding Capacity 137 mcg/dl; Unsaturated Iron Binding 116 ug/dL (112-347)
[2024-06-21 06:00] LABS: Vancomycin Random 16.4 ug/mL (20.0-40.0)
[2024-06-21 06:03] LABS: Alanine Aminotransferase < 5 U/L (0-33); Albumin Level 2.6 g/dL (3.5-5.2); Alkaline Phosphatase 98 U/L (35-105); Anion Gap 18.6 (5-19); Aspartate Amino Transferase 17 U/L (0-32); Blood Urea Nitrogen 40 mg/dL (8-23); Calcium 8.3 mg/dL (8.5-10.5); Carbon Dioxide 21 mmol/L (22-29); Chloride 102 mmol/L (98-107); Creatinine Clr Calc Pharmacy 23.6422; Glomerular Filtration Rate 20.1 mL/min (90-130); Glucose 95 mg/dL (65-115); Osmolality Calculated 296 mOsm/kg (285-295); Potassium 3.6 mmol/L (3.5-5.1); Sodium 138 mmol/L (136-145); Total Bilirubin 0.4 mg/dL (0.15-1.2); Total Protein 6.6 g/dL (6.6-8.7)
[2024-06-21 06:11] LABS: Vitamin B12 1369 pg/mL (232-1245)
[2024-06-21 06:16] LABS: Folate Level 9.1 ng/mL (4.8-37.3)
[2024-06-21] MEDS: vancomycin 500 MG in sodium chloride 0.9% (plus) 100 ML 200 MG IV (07:46)
[2024-06-21 08:43] LABS: Glucose Point of Care 107 mg/dL (70-110)
[2024-06-21] MEDS: clopidogrel 75 mg Tablet PO (10:09)
[2024-06-21] MEDS: escitalopram 10 mg Tablet 20 MG PO (10:09)
[2024-06-21] MEDS: predniSONE 10 mg Tablet PO (10:10)
[2024-06-21] MEDS: amiodarone 200 mg Tablet 400 MG PO ×2 (10:10→17:05)
[2024-06-21] MEDS: ciprofloxacin 0.3% Op Soln 2.5 mL Btl 1 DROP EYE-BOTH ×4 (10:12→20:25)
[2024-06-21] MEDS: pantoprazole 40 mg SDV IVP ×2 (10:15→18:20)
[2024-06-21] MEDS: ondansetron 2 mg/ML SDV 2 mL 4 MG IVP (10:20)
[2024-06-21 12:35] LABS: Glucose Point of Care 163 mg/dL (70-110)
[2024-06-21] MEDS: insulin lispro 100 unit/1 mL SUBCUT ×2 (12:39→18:19)
[2024-06-21] MEDS: polyethylene glycol 3350 Pkt 17 gm PO (12:39)
--- NOTE | 2024-06-21 13:29 | PM.PN ---
Subjective Subjective: No new complaints today. Remains off of Levophed. Hemoglobin stable at 7.5 today. Creatinine is worsening at 2.4. Urine output is poor at 300 cc. Medications: Reviewed: Yes Vitals/I&O/Wt Last Vital Signs Temp 98.5 F 06/21/24 08:45 Pulse 101 H 06/21/24 11:00 Resp 17 06/21/24 11:00 BP 130/97 06/21/24 11:00 Pulse Ox 92 06/21/24 11:00 O2 Del Method Room Air 06/21/24 10:34 O2 Flow Rate 2 06/20/24 20:00 06/20/24 06/21/24 06/21/24 22:59 06:59 14:59 Intake Total 300 / 9957.372 7741 / 2890.267 290 / 290 Output Total 50 / 175 150 / 325 100 / 100 Balance 250 / 1665.267 900 / 2565.267 190 / 190 Weight last 48 hrs Weight 86 kg Weight 83.5 kg Physical Exam Narrative: General: No acute distress, AO x3 HEENT: PERRLA, pupils bilaterally equal and reactive, pallors not present Chest: Normal vesicular breath sounds, no added sounds, equal good air entry bilaterally CVS: S1-S2 regular, no murmurs, no tachycardia, no gallops, no rubs Abdomen: Soft, nontender, no organomegaly, bowel sounds present Neuro: No focal deficits, no facial deformity, AO x3, power 5/5 in all limbs Urinary Catheter Management: Tong: Cath Placed During This Visit: yes Reason for Continuing Indwelling Catheter: Accurate Measurement of Urinary Output in Critically Ill Patients Urinary Catheter Date of Insertion: 06/19/24 Urinary Catheter Time of Insertion: 02:41 Data 06/21/24 04:42 06/21/24 04:42 Micro: Microbiology 06/19/24 07:25 Urine Culture - Final Urine,Clean Catch A&P Assessment and plan (1) Peripheral artery disease: (2) Mixed hyperlipidemia: (3) Diabetes mellitus: Qualifiers: Diabetes mellitus type: type 2 Diabetes mellitus terminal clerk insulin use: with residential use Diabetes mellitus complication status: with hyperglycemia Qualified Code(s): E11.65 - Type 2 diabetes mellitus with hyperglycemia; Z79.4 - [facility] (current) use of insulin (4) Diabetic ulcer of foot associated with diabetes mellitus due to underlying condition, limited to breakdown of skin: (5) Complicated UTI (urinary tract infection): (6) Urinary tract infection: (7) Rheumatoid arthritis: (8) Pressure ulcer, heel, left, unstageable: (9) Pressure ulcer of right heel, unstageable: (10) Lumbar disc disease with radiculopathy: (11) Facet arthropathy, lumbar: (12) Rash: (13) Debility: (14) Septic shock: (15) Catheter-associated urinary tract infection: (16) Chronic anemia: (17) Pseudoaneurysm: Plan Septic shock Patient takes prednisone for her rheumatoid arthritis on daily basis Will give her stress dose steroids Started on Levophed Not a septic bolus candidate because of CHF Criteria met with leukocytosis, fever tachypnea tachycardia Will request lactic acid, lactic acid was 2.4 at the outside hospital No encephalopathy Source of infection seems to be UTI, cauti needs to be ruled out Repeat UA with new Tong catheter Blood cultures which were taken 48 hours ago at outside hospitals are negative to date Urine culture was taken at [place] [facility] today as well I will repeat UA and urine culture with new Tong catheter Stress dose steroids administered anticipating worsening of leukocytosis After 12 hours she can be transition to prednisone regular dose Diastolic CHF acute exacerbation X-ray consistent with fluid overload pulm edema Will start diuretics once blood pressure stabilizes Chronic anemia: Monitor for now hold Plavix and Eliquis for next 12 hours, hemoglobin has remained stable Repeat CBC Pseudoaneurysm right groin Monitor closely, does not have significant tenderness right groin area however our differential will definitely include infected hematoma if her fever does not subside after change of Tong catheter She also has sacral area ulcer, bilateral heel eschars: Need offloading dressing, Peripheral vascular disease status post intervention in May Will continue Plavix and Eliquis after 12 hours DVT prophylaxis: Covered with above-mentioned antiplatelet anticoagulating agent Bedbound, Antonino lift dependent, requesting group home placement, call case management consulted DNR/DNI Consistent carb diet: Insulin sliding scale Patient had hypoglycemic event during last visit monitor closely for now PICC line requested Continue levothyroxine Jun Overnight labs, records from [facility] and H&P reviewed. Per review of [facility] records, it appears patient may have been hospice. A wellness check appears to have been called on her and then EMS and hospice arrived together. EMS then decided to bring her to [facility]. 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 She had been at their ER 2 days earlier complaining of back pain at which time CT of the lumbar spine had shown lumbar stenosis. A pelvic CT had shown a right groin pseudoaneurysm. Hb is currently at 9. She is currently obtunded, does not respond verbally to any verbal or painful stimuli. She appears to be clinically dry , dry parched mucus membranes, tongue coating. Ordered ct head to assess for stroke. Patient is currently on Levophed at 3 mics. Concern for septic shock. Likely source to be UTI. Recent urine cultures with Enterococcus faecalis. Discontinue cefepime. Continue piperacillin/tazobactam. Does not require dual antipseudomonal coverage for now. Add vancomycin empirically. Review of recent CT from May 2024 shows patient had a nonobstructing ureteral calculus and bilateral hydronephrosis related to possible cystitis. Will obtain CT of the abdomen and pelvis now to assess for any obstructive pyelonephritis that could explain her sepsis. Elevated BNP, bilateral scattered infiltrates noted. Chest is clear to auscultation currently. She has not had any urine output. High urine specific gravity. Patient appearing to be clinically dry therefore will start normal saline 50 cc an hour cautiously and watch for any signs of fluid overload. Last echocardiogram shows EF of 55 to 60%. We do not currently have adhesive patches to obtain Cheetah monitoring. A-fib is currently rate controlled. Continue amiodarone at 0.5 mg/min. Make patient n.p.o. until more alert and awake. Jun More alert and awake today. States she is not on hospice, states she feels unsafe in her current living condition at home with son. Cr worsened at 2.2, urine output 450 cc, continue gentle hydration for now with NS @ 50 cc/hr , has h/o CHF and pulm HTN with elevated BNP > 20,000. Continue to hold SEUN inhibitors. Off levophed since last evening. CT CAP with pneumonia at B/L bases per personal interpretation. MRSA nares +. continue Zosyn and vancomycin for empiric rx of pneumonia and UTI. Hb at 7.5 today, appears to be close to recent baseline of ~7.5 from may 2024. has right groin hematoma. Hold eliquis. Continue Plavix. Check FOBT. recent peripheral aretrial stenting for LE ischemic ulcers. B/L heel ulcers noted, new pressure sore over left ankle noted. Dressing with Vaseline gauze and optifoam. No gross signs of cellulitis at any of these sites. A fib is well controlled today. D/c amio drip, change to po amiodarone 400mg BID. Holding off on resuming cardizem as just came off pressors. Will need extensive disposition planning, possibly SNF. resume home dose of escitalopram Noted conjunctivitis, started on artificial tears and cipro eye drops. Start dysphagia diet. June 21, 2024 Patient remains alert awake and oriented. She remains off of Levophed. Hemoglobin is stable at 7.5. She has not yet had a bowel movement to check FOBT. Continuing to be on normal saline at 50 cc an hour, currently appearing to be euvolemic, however creatinine trending up to 2.4 today. Poor urine output at 300 cc. Trial of albumin every 8 hours today. If renal function continues to worsen will likely need to consult nephrology. Heart rate between 80-1 10 today. Blood pressure is much better. Continue amiodarone 400 mg p.o. twice daily. Additionally will resume home dose of Cardizem, however at 30 mg IV every 6 hours instead of 120 mg sustained-release to monitor for any potential hypotension. MRSA nares positive. Will continue piperacillin/tazobactam and vancomycin. Urine culture thus far showing urogenital nelson. Hemoglobin stable at 7.5. No signs of GI bleed such as hematemesis or melena. Hide MiraLAX as patient has been constipated. Iron studies showing low serum iron, low TSH concerning for iron deficiency anemia. Will start IV iron over the next 3 days. Resume Eliquis 5 mg in addition to Plavix given history of recent peripheral artery angioplasty. Continue to hold aspirin. In reviewing cardiology notes from May 2024, right groin hematoma was noted even at the time. It was recommended to hold Eliquis for 1 week and then resume. Hb at discharge in05/2024 was at 7.8 which appears to be her recent baseline. LE ulcers over bilateral heels are persisting, however without any gross signs of infection at this time. Patient will need appropriate disposition planning as she feels unsafe returning home. States her son has drug problems and it is not the best environment for her. Attestations Medical Necessity Statement*: Continued admission for IV antibiotics, resume Eliquis, monitor hemoglobin, needs FOBT. Resume home dose of diltiazem. Can move out of ICU to CSU today. Coding Level of Care Code Acute Code for Chg Fwd High MDM includes number and complexity of problems actively addressed during encounter, amount and/or complexity of data reviewed/ordered and described risk of complication, morbidity or mortality of management as documented Diagnoses Peripheral artery disease I73.9 Mixed hyperlipidemia E78.2 Type 2 diabetes mellitus with hyperglycemia, with long-term current use of insulin E11.65; Z79.4 Diabetes mellitus type: type 2 Diabetes mellitus residential insulin use: with terminal clerk use Diabetes mellitus complication status: with hyperglycemia Diabetic ulcer of foot associated with diabetes mellitus due to underlying condition, limited to breakdown of skin E08.621; L97.501 Complicated UTI (urinary tract infection) N39.0 Urinary tract infection N39.0 Rheumatoid arthritis M06.9 Pressure ulcer, heel, left, unstageable L89.620 Pressure ulcer of right heel, unstageable L89.610 Lumbar disc disease with radiculopathy M51.16 Facet arthropathy, lumbar M47.816 Rash R21 Debility R53.81 Septic shock A41.9; R65.21 Catheter-associated urinary tract infection T83.511A; N39.0 Chronic anemia D64.9 Pseudoaneurysm I72.9
[2024-06-21] MEDS: dilTIAZem 30 mg Tablet PO ×2 (14:05→19:40)
[2024-06-21] MEDS: iron sucrose 200 MG in sodium chloride 0.9% (100 ml) 100 ML 220 MG IV (14:05)
[2024-06-21] MEDS: albumin 25 G/100 ML BAG 60 G IV ×2 (14:05→21:28)
--- NOTE | 2024-06-21 17:50 | PC.NURSE ---
Shift SUmmary: uneventful shift. rested in bed throughout the day. Frequent complaints of pain treated with prn oxycodone and repositioning. Heel wound wound dressings changed. Urine output improved compared to yesterday. Total urine output: 400mL
[2024-06-21 18:16] LABS: Glucose Point of Care 159 mg/dL (70-110)
[2024-06-21] MEDS: insulin glargine 100 units/1 mL 7 UNIT SUBCUT (18:23)
[2024-06-21] MEDS: lactulose oral liq 20 gm/30 mL UDC 10 GM PO (18:25)
--- NOTE | 2024-06-21 20:06 | PC.NURSE ---
Transfer Patient transferred to [facility] bed 252-2 via hospital bed. All belongings with patient at time of transfer, all vital signs stable. Receiving nurse, Philip, at bedside.
[2024-06-21] MEDS: atorvastatin 40 mg Tablet PO (20:18)
[2024-06-21] MEDS: triamcinolone 0.1% cream 15 gm 1 APPLIC TOPICAL (20:27)
[2024-06-21 20:51] LABS: Glucose Point of Care 191 mg/dL (70-110)
[2024-06-22] VITALS (11 sets, daily range): BP systolic 92–163; BP diastolic 60–82; PULSE 73–96; RESP 16–18; TEMP 36.4–36.8; O2SAT 90–99
[2024-06-22] MEDS: oxyCODONE-APAP 5-325 mg Tablet 1 TAB PO ×3 (00:05→17:58)
[2024-06-22] MEDS: sodium chloride 0.9% 1,000 ML 50 ML IV ×2 (00:07→20:39)
[2024-06-22] MEDS: artificial tears Op Soln 15 mL Btl 1 DROP EYE-BOTH ×5 (01:11→20:40)
[2024-06-22] MEDS: dilTIAZem 30 mg Tablet PO ×3 (01:11→20:38)
[2024-06-22 04:41] LABS: Basophils # 0.1 10^3/uL (0.0-0.1); Hematocrit 24.7 % (36-47); Lymphocytes # 3.6 10^3/uL (0.8-4.8); Lymphocytes % 39.6 %; Mean Corpuscular Hemoglobin 25.7 pg (27-33); Mean Corpuscular Volume 85.8 fl (85-98); Mean Platelet Volume 10.5 fL (7.4-10.4); Monocytes # 0.6 10^3/uL (0.2-0.9); Monocytes % 6.9 %; Neutrophils # 4.65 10^3/uL (1.8-7.7); Nucleated Red Blood Cells # 0.1 /100WBC; Nucleated Red Blood Cells % 0.8 %; Platelet Count 400 10^3/cmm (157-399); Red Blood Count 2.88 10^6/uL (3.85-5.65); Red Cell Distribution Width 18.3 % (12.1-15.1); White Blood Count 9.12 10^3/uL (3.29-11.43)
[2024-06-22 05:00] LABS: Alanine Aminotransferase < 5 U/L (0-33); Albumin Level 3.2 g/dL (3.5-5.2); Alkaline Phosphatase 105 U/L (35-105); Anion Gap 17.8 (5-19); Aspartate Amino Transferase 17 U/L (0-32); Blood Urea Nitrogen 39 mg/dL (8-23); Calcium 8.4 mg/dL (8.5-10.5); Carbon Dioxide 22 mmol/L (22-29); Chloride 103 mmol/L (98-107); Creatinine Clr Calc Pharmacy 31.5229; Globulin 3.3 g/dL (1.3-4.6); Glomerular Filtration Rate 28.1 mL/min (90-130); Glucose 108 mg/dL (65-115); Osmolality Calculated 298 mOsm/kg (285-295); Potassium 3.8 mmol/L (3.5-5.1); Sodium 139 mmol/L (136-145); Total Bilirubin 0.5 mg/dL (0.15-1.2); Total Protein 6.5 g/dL (6.6-8.7); Vancomycin Random 17.8 ug/mL (20.0-40.0)
[2024-06-22] MEDS: albumin 25 G/100 ML BAG 60 G IV ×3 (05:00→20:39)
[2024-06-22] MEDS: levothyroxine 175 mcg Tablet PO (05:14)
[2024-06-22] MEDS: piperacillin-tazobactam 3.375 GM in sodium chloride 0.9% (plus) 50 ML IV ×3 (05:14→20:38)
[2024-06-22 06:35] LABS: Glucose Point of Care 117 mg/dL (70-110)
[2024-06-22] MEDS: vancomycin 500 MG in sodium chloride 0.9% (plus) 100 ML 200 MG IV (08:19)
[2024-06-22] MEDS: escitalopram 10 mg Tablet 20 MG PO (08:21)
[2024-06-22] MEDS: predniSONE 10 mg Tablet PO (08:21)
[2024-06-22] MEDS: clopidogrel 75 mg Tablet PO (08:21)
[2024-06-22] MEDS: apixaban 5 mg Tablet PO (08:21)
[2024-06-22] MEDS: ciprofloxacin 0.3% Op Soln 2.5 mL Btl 1 DROP EYE-BOTH ×4 (08:23→20:38)
[2024-06-22] MEDS: pantoprazole 40 mg SDV IVP ×2 (08:24→17:59)
[2024-06-22] MEDS: polyethylene glycol 3350 Pkt 17 gm PO (08:24)
--- NOTE | 2024-06-22 09:29 | PC.CHAP ---
Pastoral Care Encounter/Spiritual Assessment Type of Contact [] Declined disc sander visit [] Patient/Family/Request visit [] Outpatient visit [] Follow-up visit [] Physician referral [] Code/Alert [x] Routine visit [] Staff referral [] Actively dying [] Patient sleeping [] Family support [] [] Out of room [] Palliative care [] [] Receiving care in room [] Pre-surgical visit [] Trauma [] Long length of stay [] ICU visit [] Other: Relational/Emotional Strength [] Patient feels connected with others/family/visitors/staff [] Distress [] Loneliness/isolation [] Abandonment Spirituality of Patient [] Person of Dorene [] Attends Voodoo of their Dorene [] Believes in Prayer [] Reads Bible or Samaritan materials [] There are Spiritual issues to be addressed [employer] Underwriter Interventions [x] Prayer [] Active listening [] Non-anxious presence [] Spiritual/emotional support [] Crisis/trauma care [] Spiritual counseling [] Bereavement support [] Provided bereavement packet [] Provided Bible/devotional materials [] Provided toy/stuffed animal, coloring book to patient or family member [] Provided Communion [] Anointing/[place] [] Salvation [] Completed spiritual assessment [] Other: Impact on Illness or Injury [] Angry [] Fearful [] Anxious [] Often cries [] Exhaustion [] Unable to work [] Unable to attend advent [] Unable to walk/stand [] Unable to read [] Unable to drive [] Unable to eat/drink [] Unable to sleep [] Unable to be with family [] Patient intubated [] Other: Summary precaution Time spent with patient
[2024-06-22 11:42] LABS: Glucose Point of Care 190 mg/dL (70-110)
[2024-06-22] MEDS: insulin lispro 100 unit/1 mL SUBCUT ×2 (12:46→17:58)
[2024-06-22] MEDS: iron sucrose 200 MG in sodium chloride 0.9% (100 ml) 100 ML 220 MG IV (12:48)
--- NOTE | 2024-06-22 14:13 | P.PN_ITS ---
Subjective 2 Subjective: seen today hb 7.40 cr 1.8, improving Vitals/I&O/Wt Last Vital Signs Temp 98.3 F 06/22/24 11:31 Pulse 74 06/22/24 11:31 Resp 17 06/22/24 11:31 BP 142/81 06/22/24 11:31 Pulse Ox 96 06/22/24 11:31 O2 Del Method Room Air 06/22/24 11:31 O2 Flow Rate 2 06/20/24 20:00 06/21/24 06/22/24 06/22/24 22:59 06:59 14:59 Intake Total 360 / 650 1562.5 / 2212.5 720 / 720 Output Total 300 / 400 400 / 800 Balance 60 / 250 1162.5 / 1412.5 720 / 720 Weight last 48 hrs Weight 93.667 kg Weight 86 kg Physical Exam 2 Narrative: General: No acute distress, AO x3 HEENT: PERRLA, pupils bilaterally equal and reactive, pallors not present Chest: Normal vesicular breath sounds, no added sounds, equal good air entry bilaterally CVS: S1-S2 regular, no murmurs, no tachycardia, no gallops, no rubs Abdomen: Soft, nontender, no organomegaly, bowel sounds present Neuro: No focal deficits, no facial deformity, AO x3, Urinary Catheter Management: Tong: Cath Placed During This Visit: yes Reason for Continuing Indwelling Catheter: Chronic Indwelling Urinary Catheter on Admission Urinary Catheter Date of Insertion: 06/19/24 Urinary Catheter Time of Insertion: 02:41 Data 06/22/24 04:28 06/22/24 04:28 Micro: Microbiology 06/19/24 07:25 Urine Culture - Final Urine,Clean Catch A&P Assessment and plan (1) Peripheral artery disease: (2) Mixed hyperlipidemia: (3) Diabetes mellitus: Qualifiers: Diabetes mellitus complication status: with hyperglycemia Diabetes mellitus [facility] use: with [facility] use Diabetes mellitus type: type 2 Qualified Code(s): E11.65 - Type 2 diabetes mellitus with hyperglycemia; Z79.4 - retirement (current) use of insulin (4) Diabetic ulcer of foot associated with diabetes mellitus due to underlying condition, limited to breakdown of skin: (5) Complicated UTI (urinary tract infection): (6) Urinary tract infection: (7) Rheumatoid arthritis: (8) Pressure ulcer, heel, left, unstageable: (9) Pressure ulcer of right heel, unstageable: (10) Lumbar disc disease with radiculopathy: (11) Facet arthropathy, lumbar: (12) Rash: (13) Debility: (14) Septic shock: (15) Catheter-associated urinary tract infection: (16) Chronic anemia: (17) Pseudoaneurysm: Plan Septic shock Patient takes prednisone for her rheumatoid arthritis on daily basis Will give her stress dose steroids Started on Levophed Not a septic bolus candidate because of CHF Criteria met with leukocytosis, fever tachypnea tachycardia Will request lactic acid, lactic acid was 2.4 at the outside hospital No encephalopathy Source of infection seems to be UTI, cauti needs to be ruled out Repeat UA with new Tong catheter Blood cultures which were taken 48 hours ago at outside hospitals are negative to date Urine culture was taken at [facility] today as well I will repeat UA and urine culture with new Tong catheter Stress dose steroids administered anticipating worsening of leukocytosis After 12 hours she can be transition to prednisone regular dose Diastolic CHF acute exacerbation X-ray consistent with fluid overload pulm edema Will start diuretics once blood pressure stabilizes Chronic anemia: Monitor for now hold Plavix and Eliquis for next 12 hours, hemoglobin has remained stable Repeat CBC Pseudoaneurysm right groin Monitor closely, does not have significant tenderness right groin area however our differential will definitely include infected hematoma if her fever does not subside after change of Tong catheter She also has sacral area ulcer, bilateral heel eschars: Need offloading dressing, Peripheral vascular disease status post intervention in May Will continue Plavix and Eliquis after 12 hours DVT prophylaxis: Covered with above-mentioned antiplatelet anticoagulating agent Bedbound, Antonino lift dependent, requesting prison placement, call case management consulted DNR/DNI Consistent carb diet: Insulin sliding scale Patient had hypoglycemic event during last visit monitor closely for now PICC line requested Continue levothyroxine Jun Overnight labs, records from [facility] and H&P reviewed. Per review of [facility] records, it appears patient may have been hospice. A wellness check appears to have been called on her and then EMS and hospice arrived together. EMS then decided to bring her to [facility]. 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 She had been at their ER 2 days earlier complaining of back pain at which time CT of the lumbar spine had shown lumbar stenosis. A pelvic CT had shown a right groin pseudoaneurysm. Hb is currently at 9. She is currently obtunded, does not respond verbally to any verbal or painful stimuli. She appears to be clinically dry , dry parched mucus membranes, tongue coating. Ordered ct head to assess for stroke. Patient is currently on Levophed at 3 mics. Concern for septic shock. Likely source to be UTI. Recent urine cultures with Enterococcus faecalis. Discontinue cefepime. Continue piperacillin/tazobactam. Does not require dual antipseudomonal coverage for now. Add vancomycin empirically. Review of recent CT from May 2024 shows patient had a nonobstructing ureteral calculus and bilateral hydronephrosis related to possible cystitis. Will obtain CT of the abdomen and pelvis now to assess for any obstructive pyelonephritis that could explain her sepsis. Elevated BNP, bilateral scattered infiltrates noted. Chest is clear to auscultation currently. She has not had any urine output. High urine specific gravity. Patient appearing to be clinically dry therefore will start normal saline 50 cc an hour cautiously and watch for any signs of fluid overload. Last echocardiogram shows EF of 55 to 60%. We do not currently have adhesive patches to obtain [place] monitoring. A-fib is currently rate controlled. Continue amiodarone at 0.5 mg/min. Make patient n.p.o. until more alert and awake. Jun More alert and awake today. States she is not on hospice, states she feels unsafe in her current living condition at home with son. Cr worsened at 2.2, urine output 450 cc, continue gentle hydration for now with NS @ 50 cc/hr , has h/o CHF and pulm HTN with elevated BNP > 20,000. Continue to hold SEUN inhibitors. Off levophed since last evening. CT CAP with pneumonia at B/L bases per personal interpretation. MRSA nares +. continue Zosyn and vancomycin for empiric rx of pneumonia and UTI. Hb at 7.5 today, appears to be close to recent baseline of ~7.5 from may 2024. has right groin hematoma. Hold eliquis. Continue Plavix. Check FOBT. recent peripheral aretrial stenting for LE ischemic ulcers. B/L heel ulcers noted, new pressure sore over left ankle noted. Dressing with Vaseline gauze and optifoam. No gross signs of cellulitis at any of these sites. A fib is well controlled today. D/c amio drip, change to po amiodarone 400mg BID. Holding off on resuming cardizem as just came off pressors. Will need extensive disposition planning, possibly SNF. resume home dose of escitalopram Noted conjunctivitis, started on artificial tears and cipro eye drops. Start dysphagia diet. June 21, 2024 Patient remains alert awake and oriented. She remains off of Levophed. Hemoglobin is stable at 7.5. She has not yet had a bowel movement to check FOBT. Continuing to be on normal saline at 50 cc an hour, currently appearing to be euvolemic, however creatinine trending up to 2.4 today. Poor urine output at 300 cc. Trial of albumin every 8 hours today. If renal function continues to worsen will likely need to consult nephrology. Heart rate between 80-1 10 today. Blood pressure is much better. Continue amiodarone 400 mg p.o. twice daily. Additionally will resume home dose of Cardizem, however at 30 mg IV every 6 hours instead of 120 mg sustained-release to monitor for any potential hypotension. MRSA nares positive. Will continue piperacillin/tazobactam and vancomycin. Urine culture thus far showing urogenital nelson. Hemoglobin stable at 7.5. No signs of GI bleed such as hematemesis or melena. Hide MiraLAX as patient has been constipated. Iron studies showing low serum iron, low TSH concerning for iron deficiency anemia. Will start IV iron over the next 3 days. Resume Eliquis 5 mg in addition to Plavix given history of recent peripheral artery angioplasty. Continue to hold aspirin. In reviewing cardiology notes from May 2024, right groin hematoma was noted even at the time. It was recommended to hold Eliquis for 1 week and then resume. Hb at discharge in05/2024 was at 7.8 which appears to be her recent baseline. LE ulcers over bilateral heels are persisting, however without any gross signs of infection at this time. Patient will need appropriate disposition planning as she feels unsafe returning home. States her son has drug problems and it is not the best environment for her. 06/22/2024 AOx3, off levophed, Hb 7.4. Yesterday was 7.5. No significant drop. Awaiting FOBT. No BM so far. ? Creatinine 1.8 today. Starting to improve. Will consult nephrology. ? Continue amiodarone twice daily ? Continue diltiazem 30 every 6 hours ? Continue Eliquis, Plavix -Continue IV iron. ? Patient is awaiting placement to nursing facility at this time. Attestations 2 Medical Necessity Statement*: Continued admission for IV antibiotics, resume Eliquis, monitor hemoglobin, needs FOBT. 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
[2024-06-22 16:22] LABS: Glucose Point of Care 209 mg/dL (70-110)
[2024-06-22] MEDS: insulin glargine 100 units/1 mL 7 UNIT SUBCUT (17:59)
[2024-06-22] MEDS: amiodarone 200 mg Tablet 400 MG PO (17:59)
[2024-06-22] MEDS: atorvastatin 40 mg Tablet PO (20:38)
[2024-06-22 20:39] LABS: Glucose Point of Care 158 mg/dL (70-110)
[2024-06-23] VITALS (8 sets, daily range): BP systolic 124–156; BP diastolic 55–85; PULSE 70–86; RESP 15–18; TEMP 36.6–36.9; O2SAT 92–97
[2024-06-23] MEDS: dilTIAZem 30 mg Tablet PO ×3 (01:55→14:30)
[2024-06-23] MEDS: artificial tears Op Soln 15 mL Btl 1 DROP EYE-BOTH ×4 (01:55→12:30)
[2024-06-23 04:30] LABS: Basophils # 0.1 10^3/uL (0.0-0.1); Basophils % 0.9 %; Hematocrit 26.8 % (36-47); Lymphocytes # 4.9 10^3/uL (0.8-4.8); Lymphocytes % 39.4 %; Mean Corpuscular HGB Conc 30.2 g/dL (30-55); Mean Corpuscular Hemoglobin 25.9 pg (27-33); Mean Corpuscular Volume 85.6 fl (85-98); Mean Platelet Volume 10.7 fL (7.4-10.4); Monocytes # 1.1 10^3/uL (0.2-0.9); Monocytes % 8.5 %; Neutrophils # 5.99 10^3/uL (1.8-7.7); Neutrophils % 48.5 %; Nucleated Red Blood Cells # 0.3 /100WBC; Platelet Count 450 10^3/cmm (157-399); Red Blood Count 3.13 10^6/uL (3.85-5.65); Red Cell Distribution Width 18.5 % (12.1-15.1); White Blood Count 12.35 10^3/uL (3.29-11.43)
[2024-06-23] MEDS: piperacillin-tazobactam 3.375 GM in sodium chloride 0.9% (plus) 50 ML IV ×2 (04:35→12:33)
[2024-06-23] MEDS: albumin 25 G/100 ML BAG 60 G IV ×2 (04:35→12:25)
[2024-06-23 04:57] LABS: Vancomycin Trough 12.8 ug/mL (10-15)
[2024-06-23 04:58] LABS: Anion Gap 15.3 (5-19); Blood Urea Nitrogen 31 mg/dL (8-23); Calcium 8.9 mg/dL (8.5-10.5); Carbon Dioxide 22 mmol/L (22-29); Chloride 106 mmol/L (98-107); Creatinine Clr Calc Pharmacy 45.6802; Glomerular Filtration Rate 40.9 mL/min (90-130); Glucose 90 mg/dL (65-115); Osmolality Calculated 296 mOsm/kg (285-295); Potassium 3.3 mmol/L (3.5-5.1); Sodium 140 mmol/L (136-145)
[2024-06-23 06:22] LABS: Glucose Point of Care 102 mg/dL (70-110)
[2024-06-23] MEDS: levothyroxine 175 mcg Tablet PO (06:29)
--- NOTE | 2024-06-23 09:36 | P.DS_ITS ---
Discharge Providers Date of Admission: 06/19/24 02:04 Date of Discharge: June 24, 2024 Attending Provider at Admission: Paris Salinas MD Attending Provider at Discharge: Theresa Dietz MD Primary Care Provider: AARON Hand Diagnoses at Discharge Discharge Diagnosis (1) Peripheral artery disease: Status: Acute (2) Mixed hyperlipidemia: Status: Acute (3) Diabetes mellitus: Status: Chronic Qualifiers: Diabetes mellitus complication status: with hyperglycemia Diabetes mellitus longterm insulin use: with longterm use Diabetes mellitus type: type 2 Qualified Code(s): E11.65 - Type 2 diabetes mellitus with hyperglycemia; Z79.4 - watermaster (current) use of insulin (4) Diabetic ulcer of foot associated with diabetes mellitus due to underlying condition, limited to breakdown of skin: Status: Acute (5) Complicated UTI (urinary tract infection): Status: Acute (6) Urinary tract infection: Status: Resolved (7) Rheumatoid arthritis: Status: Chronic (8) Pressure ulcer, heel, left, unstageable: Status: Acute (9) Pressure ulcer of right heel, unstageable: Status: Acute (10) Lumbar disc disease with radiculopathy: Status: Acute (11) Facet arthropathy, lumbar: Status: Acute (12) Rash: Status: Resolved (13) Debility: Status: Acute (14) Septic shock: Status: Resolved (15) Catheter-associated urinary tract infection: Status: Resolved (16) Chronic anemia: Status: Acute (17) Pseudoaneurysm: Status: Acute Reason for Visit Reason for Visit: Afib rvr sepsis uti Hospital Course Hospital Course 69-year-old presented with multiple comorbid conditions and was recently discharged on 06/02 after lower extremity angiogram with angioplasty and ballooning. Also has chronic lower extremity ischemic ulcers which we do not believe with the source of her sepsis. She also had A-fib with RVR and altered mental status which has now improved back to baseline mentation. She does not have a pneumonia and UTI and evaluation. He did receive amiodarone infusion and Levophed drip for the first day however they were weaned off. She was transferred to the floor. Did have worsening kidney function with poor urine output which did improve. She has been clinically euvolemic. She was also given albumin during hospitalization. Hemoglobin was last 7.5 however that improved on its own without any blood transfusion. She did have a recent right groin hematoma which is stable. She is on aspirin Plavix Eliquis but at this point will be sent to half-way on Eliquis and Plavix. I will stop the aspirin at this time. Blood cultures were negative to date, urine culture also did not show any growth. She will be sent home on linezolid and Augmentin to complete the antibiotic course. She is to follow-up outpatient with cardiology, primary care as outpatient. Physical Exam Narrative: General: No acute distress, AO x3 HEENT: PERRLA, pupils bilaterally equal and reactive, pallors not present Chest: Normal vesicular breath sounds, no added sounds, equal good air entry bilaterally CVS: S1-S2 regular, no murmurs, no tachycardia, no gallops, no rubs Abdomen: Soft, nontender, no organomegaly, bowel sounds present Neuro: No focal deficits, no facial deformity, AO x3, Urinary Catheter Management: Tong: Cath Placed During This Visit: yes Reason for Continuing Indwelling Catheter: Acute Urinary Retention or Obstruction Urinary Catheter Date of Insertion: 06/19/24 Urinary Catheter Time of Insertion: 02:41 Discharge Data Studies Completed and Pending Completed Studies During Hospitalization Category Date Time Status CT chest abdomen pelvis [[place] [id number] Cat Scan 06/19/24 11:07 Completed ] Routine CT head wo con* [id number] Routine Cat Scan 06/19/24 11:14 Completed CXRP [XR chest 1V portable [id number]] Routine Exams 06/19/24 07:56 Completed Radiology Impressions Chest X-Ray 06/19/24 07:56 IMPRESSION: Satisfactory interval placement RIGHT PICC line. Chest/Abdomen/Pelvis CT 06/19/24 11:07 IMPRESSION: 1. Pulmonary edema with scattered opacifications. Scattered opacifications are probably pneumonia, focal edema or pneumonitis. 2. Enlarged heart. 3. Pulmonary hypertension. 4. No hydronephrosis. 5. Tong catheter in the urinary bladder. Continued bladder wall thickening. 6. New RIGHT inguinal hematoma extending to the RIGHT groin vessels. Hematoma measures 3.7 x 9.[address] 06/19/24 11:14 IMPRESSION: 1. No acute intracranial hemorrhage or edema. 2. Progressive cerebral atrophy and moderate small vessel ischemic change since 2013. Laboratory Results WBC 12.35 10^3/uL (3.29-11.43) H 06/23/24 04:20 RBC 3.13 10^6/uL (3.85-5.65) L 06/23/24 04:20 Hgb 8.10 g/dL (11.27-16.99) L 06/23/24 04:20 Hct 26.8 % (36-47) L 06/23/24 04:20 MCV 85.6 fl (85-98) 06/23/24 04:20 MCH 25.9 pg (27-33) L 06/23/24 04:20 MCHC 30.2 g/dL (30-55) 06/23/24 04:20 RDW 18.5 % (12.1-15.1) H 06/23/24 04:20 Plt Count 450 10^3/cmm (157-399) H 06/23/24 04:20 MPV 10.7 fL (7.4-10.4) H 06/23/24 04:20 Neut % (Auto) 48.5 % 06/23/24 04:20 Lymph % (Auto) 39.4 % 06/23/24 04:20 [place] % (Auto) 8.5 % 06/23/24 04:20 Eos % (Auto) 0.0 % 06/23/24 04:20 Baso % (Auto) 0.9 % 06/23/24 04:20 Neut # (Auto) 5.99 10^3/uL (1.8-7.7) 06/23/24 04:20 Lymph # (Auto) 4.9 10^3/uL (0.8-4.8) H 06/23/24 04:20 [place] # (Auto) 1.1 10^3/uL (0.2-0.9) H 06/23/24 04:20 Eos # (Auto) 0.0 10^3/uL (0.0-0.8) 06/23/24 04:20 Baso # (Auto) 0.1 10^3/uL (0.0-0.1) 06/23/24 04:20 Nucleated RBC % (auto) 2.0 % 06/23/24 04:20 Nucleated RBCs # 0.3 /100WBC 06/23/24 04:20 Sodium 140 mmol/L (136-145) 06/23/24 04:20 Potassium 3.3 mmol/L (3.5-5.1) L 06/23/24 04:20 Chloride 106 mmol/L (98-107) 06/23/24 04:20 Carbon Dioxide 22 mmol/L (22-29) 06/23/24 04:20 Anion Gap 15.3 (5-19) 06/23/24 04:20 BUN 31 mg/dL (8-23) H 06/23/24 04:20 Creatinine 1.3 mg/dL (0.5-0.9) H 06/23/24 04:20 GFR Calculation 40.9 mL/min (90-130) L 06/23/24 04:20 Glucose 90 mg/dL (65-115) 06/23/24 04:20 POC Glucose 173 mg/dL (70-110) H 06/23/24 10:53 Calculated Osmolality 296 mOsm/kg (285-295) H 06/23/24 04:20 Lactate 2.2 mmol/L (0.5-2.2) 06/19/24 02:54 Calcium 8.9 mg/dL (8.5-10.5) 06/23/24 04:20 Magnesium 2.0 mg/dL (1.7-2.3) 06/23/24 04:20 Iron 21 ug/dL (37-145) L 06/21/24 04:42 TIBC 137 mcg/dl 06/21/24 04:42 % Saturation 15.3 % (20-50) L 06/21/24 04:42 Unsat Iron Binding 116 ug/dL (112-347) 06/21/24 04:42 Ferritin 632 ng/mL (15-150) H 06/21/24 04:42 Total Bilirubin 0.5 mg/dL (0.15-1.2) 06/22/24 04:28 AST 17 U/L (0-32) 06/22/24 04:28 ALT < 5 U/L (0-33) 06/22/24 04:28 Alkaline Phosphatase 105 U/L (35-105) 06/22/24 04:28 Creatine Kinase 24 U/L (26-192) L 06/21/24 04:42 Troponin T Baseline 52 ng/L (0-10) H 06/19/24 02:54 Troponin T 120 Minute 47.39 ng/L (0-10) H 06/19/24 04:55 Delta Troponin T -4.61 ABS# (0-10) L 06/19/24 04:55 Troponin T Hi Sens 6Hr 45.84 ng/L (0-10) H 06/19/24 10:22 Troponin T Hi Sens 6Hr Delta -6.16 ng/L (0-12) L 06/19/24 10:22 C-Reactive Protein 241.6 mg/L (0.0-4.9) H 06/19/24 02:54 NT-Pro-B Natriuret Pep 89155 pg/mL (0-125) H 06/19/24 02:54 Total Protein 6.5 g/dL (6.6-8.7) L 06/22/24 04:28 Albumin 3.2 g/dL (3.5-5.2) L 06/22/24 04:28 Globulin 3.3 g/dL (1.3-4.6) 06/22/24 04:28 Vitamin B12 1369 pg/mL (232-1245) H 06/21/24 04:42 Folate 9.1 ng/mL (4.8-37.3) 06/21/24 04:42 Procalcitonin 0.86 ng/mL (0-0.5) H 06/19/24 02:54 Urine Color Dark yellow (Yellow) A 06/19/24 07:25 Urine Appearance Turbid (CLEAR) A 06/19/24 07:25 Urine pH 5.0 (5-7) 06/19/24 07:25 Ur Specific [place] 1.040 (1.005-1.030) H 06/19/24 07:25 Urine Protein 3+ (Negative) A 06/19/24 07:25 Urine Glucose (UA) Trace (Normal) H 06/19/24 07:25 Urine Ketones Trace (Negative) 06/19/24 07: Urine Blood 3+ (Negative) A 06/19/24 07: Urine Nitrate Negative (Negative) 06/19/24 07:25 Urine Bilirubin 2+ (Negative) H 06/19/24 07:25 Urine Urobilinogen 1.0 mg/dL (Negative) 06/19/24 07:25 Ur Leukocyte Esterase 2+ (Negative) A 06/19/24 07:25 Urine RBC 11-20 /hpf (0-2) H 06/19/24 07:25 Urine WBC >100 /hpf (0-5) H 06/19/24 07:25 Ur Squamous Epith Cells 21-50 /hpf (0-5) 06/19/24 07:25 Amorphous Sediment Not Reportable 06/19/24 07:25 Urine Bacteria 4+ /hpf (NONE) H 06/19/24 07:25 Hyaline Casts 160.60 /lpf 06/19/24 07:25 Nasal MRSA (PCR) Mrsa detected (Not Detecte) A 06/19/24 17:19 Vancomycin Trough 12.8 ug/mL (10-15) 06/23/24 04:20 Random Vancomycin 17.8 ug/mL (20.0-40.0) L 06/22/24 04:28 Adenovirus (PCR) Not detected (NOT DETECT) 06/19/24 17:19 C. pneumoniae DNA (PCR) Not detected (NOT DETECT) 06/19/24 17:19 Coronavirus 229E (PCR) Not detected (NOT DETECT) 06/19/24 17:19 Human Metapneumovir PCR Not detected (NOT DETECT) 06/19/24 17:19 Influenza A (H1) PCR Not detected (NOT DETECT) 06/19/24 17:19 Influ A (H1/09) PCR Not detected (NOT DETECT) 06/19/24 17:19 Influenza A (H3) PCR Not detected (NOT DETECT) 06/19/24 17:19 Influenza Type A (PCR) Not detected (NOT DETECT) 06/19/24 17:19 Influenza Type B (PCR) Not detected (NOT DETECT) 06/19/24 17:19 M. pneumoniae (PCR) Not detected (NOT DETECT) 06/19/24 17:19 Parainfluenza 1 (PCR) Not detected (NOT DETECT) 06/19/24 17:19 Parainfluenza 2 (PCR) Not detected (NOT DETECT) 06/19/24 17:19 Parainfluenza 3 (PCR) Not detected (NOT DETECT) 06/19/24 17:19 Parainfluenza 4 (PCR) Not detected (NOT DETECT) 06/19/24 17:19 RSV Type A (PCR) Not detected (NOT DETECT) 06/19/24 17:19 RSV Type B (PCR) Not detected (NOT DETECT) 06/19/24 17:19 Entero/Rhino (PCR) Not detected (NOT DETECT) 06/19/24 17:19 SARS-CoV-2 (PCR) Not detected (NOT DETECT) 06/19/24 17:19 Vitals Last Vital Signs Temp 97.9 F 06/23/24 15:54 Pulse 84 06/23/24 15:54 Resp 17 06/23/24 15:54 BP 144/85 06/23/24 15:54 Pulse Ox 95 06/23/24 15:54 O2 Del Method Room Air 06/23/24 15:54 O2 Flow Rate 2 06/20/24 20:00 Discharge Plan Discharge Patient Disposition: Home Condition: Stable Prescriptions: New amiodarone [Pacerone] 200 mg Tablet See Rx Instructions .ROUTE .COMPLEX Qty: 60 0RF Rx Instructions: 400 MG BID X 4 DAYS THEN 400 MG DAILY THEREAFTER ciprofloxacin HCl 0.3 % Drops 1 drp eye-both QID 3 Days Qty: 2.5 0RF linezolid 600 mg tablet 600 mg PO BID 5 Days Qty: 10 0RF amoxicillin-pot clavulanate 875-125 mg tablet 1 tab PO BID 5 Days Qty: 10 0RF Continued pregabalin 100 mg capsule 100 mg PO BID (DME) pen needle, diabetic [BD Jocelyn 2nd Gen Pen Needle] 32 gauge x 5/32 needle See Rx Instructions .Route Qty: 120 5RF Rx Instructions: As directed 4 times daily lisinopril 20 mg tablet 20 mg PO DAILY oxycodone-acetaminophen 5-325 mg tablet 1 tab PO Q4H PRN (Reason: Pain) diltiazem HCl 120 mg capsule,extended release 24hr 120 mg PO DAILY mirtazapine 15 mg tablet 15 mg PO QAM escitalopram oxalate 20 mg tablet 20 mg PO DAILY glucagon HCl [Glucagon (HCl) Emergency Kit] 1 mg recon soln 1 mg SUBCUT PRN PRN (Reason: low blood sugar) levothyroxine 175 mcg tablet 175 mcg PO QAM acetaminophen 325 mg Tablet See Rx Instructions .ROUTE .COMPLEX PRN (Reason: pain or elevated temp) Rx Instructions: Take 650 mg orally every 6 hours as needed for elevated temp or pain. prednisone 10 mg tablet 10 mg PO DAILY triamcinolone acetonide 0.5 % cream 1 applic TOPICAL PRN PRN (Reason: Skin Irritation) prednisolone acetate 1 % drops,suspension See Rx Instructions .ROUTE .COMPLEX Rx Instructions: Instill 1 drop into left eye once daily and 1 drop in right eye 3 times daily. neomycin-polymyxin B-dexameth 3.5mg/mL-10,000 unit/mL-0.1 % drops,suspension 1 drp ophthalmic (eye) BEDTIME Santyl 250 unit/gram ointment See Rx Instructions .ROUTE .COMPLEX Rx Instructions: 1 application topically to left ankle, left heel, and right heel every day shift. insulin lispro 100 unit/mL insulin pen See Rx Instructions .ROUTE .COMPLEX Rx Instructions: Use per sliding scale. If bs is 151-200=3untis, 201-250=6units, 251- 300=9units, 301-350=12units, 351-400=18units, if over 400 contact physician. atorvastatin [Lipitor] 40 mg tablet 40 mg PO BEDTIME pantoprazole 40 mg tablet,delayed release (DR/EC) 40 mg PO BID ropinirole 0.5 mg tablet 0.5 mg PO BID Eliquis 5 mg tablet 5 mg PO DAILY Hold Instructions: Resume on 06/16/24. magnesium hydroxide [Milk of Magnesia] 400 mg/5 mL Suspension 30 ml PO Q12H PRN (Reason: Constipation) bisacodyl [Dulcolax (bisacodyl)] 10 mg Suppository 10 mg MA Q12H PRN (Reason: Constipation) Artificial Tears (PF) Dropperette 1 drp OPHTHALMIC (EYE) Q4H PRN (Reason: Dry Eyes) clopidogrel 75 mg Tablet 75 mg PO DAILY Qty: 30 0RF insulin glargine [Basaglar KwikPen U-100 Insulin] 100 unit/mL (3 mL) insulin pen 7 unit SUBCUT QPM Qty: 15 0RF Discontinued cephalexin 500 mg capsule 500 mg PO BID aspirin 81 mg Tablet,Delayed Release (Dr/Ec) 81 mg PO DAILY loperamide 2 mg Tablet See Rx Instructions .ROUTE .COMPLEX PRN (Reason: Diarrhea) Rx Instructions: Give 2 tablets by mouth initially , then 1 tablet after each loose stool until symptoms controlled; do not exceed 8 mg per 24 hrs. Discharge Orders: Discharge Order (Routine); Ordered 06/23/24 Ordered By: Theresa Dietz Other Ambulatory Orders: Complete Blood Count w/Auto (Q7D) Timeframe: 20240626 Location: Determined by Patient Ordered By: Theresa Dietz Complete Blood Count w/Auto (Q7D) Timeframe: 20240703 Location: Determined by Patient Ordered By: Theresa Dietz Referrals: DEIRDRE Williamson FNP [Primary Care Provider] - 7-10 days Tevin Gates M.D [Physician] - 2 weeks (We have notified your physician's clinic of the need for a follow-up appointment to be scheduled. If you have not heard from them within the next 2 business days, please call them directly. ) Discharge Diet: Cardiac and Diabetic Discharge Activity: Resume usual activity Patient Instructions: Ciprofloxacin (By mouth), Amoxicillin/Clavulanate Potassium (By mouth), Amiodarone (By mouth), Linezolid (By mouth), Opioid Safety Discharge Attestations Time Spent in Discharge Care*: greater than 30 min Status at Discharge: Cognitive status at discharge: cognitively intact , Behavioral status at discharge: cooperative , Quality Metrics Clinical Quality Measures [ No reported AMI, CVA or VTE this stay] Coding Level of Care Code Acute Code for Chg Fwd Diagnoses Peripheral artery disease I73.9 Mixed hyperlipidemia E78.2 Type 2 diabetes mellitus with hyperglycemia, with long-term current use of insulin E11.65; Z79.4 Diabetes mellitus complication status: with hyperglycemia Diabetes mellitus longterm insulin use: with longterm use Diabetes mellitus type: type 2 Diabetic ulcer of foot associated with diabetes mellitus due to underlying condition, limited to breakdown of skin E08.621; L97.501 Complicated UTI (urinary tract infection) N39.0 Urinary tract infection N39.0 Rheumatoid arthritis M06.9 Pressure ulcer, heel, left, unstageable L89.620 Pressure ulcer of right heel, unstageable L89.610 Lumbar disc disease with radiculopathy M51.16 Facet arthropathy, lumbar M47.816 Rash R21 Debility R53.81 Septic shock A41.9; R65.21 Catheter-associated urinary tract infection T83.511A; N39.0 Chronic anemia D64.9 Pseudoaneurysm I72.9
[2024-06-23] MEDS: clopidogrel 75 mg Tablet PO (09:41)
[2024-06-23] MEDS: escitalopram 10 mg Tablet 20 MG PO (09:41)
[2024-06-23] MEDS: apixaban 5 mg Tablet PO (09:41)
[2024-06-23] MEDS: amiodarone 200 mg Tablet 400 MG PO (09:41)
[2024-06-23] MEDS: pantoprazole 40 mg SDV IVP (09:42)
[2024-06-23] MEDS: VANCOMYCIN ADD-Vantage 750 MG in 0.9% NaCl ADD-Vantage 250 ML 250 MG IV (09:43)
[2024-06-23] MEDS: ciprofloxacin 0.3% Op Soln 2.5 mL Btl 1 DROP EYE-BOTH ×2 (09:45→12:30)
[2024-06-23] MEDS: polyethylene glycol 3350 Pkt 17 gm PO (09:45)
[2024-06-23] MEDS: predniSONE 10 mg Tablet PO (09:45)
[2024-06-23] MEDS: oxyCODONE-APAP 5-325 mg Tablet 1 TAB PO (11:21)
[2024-06-23 11:41] LABS: Glucose Point of Care 173 mg/dL (70-110)
[2024-06-23] MEDS: insulin lispro 100 unit/1 mL SUBCUT (12:25)
[2024-06-23] MEDS: iron sucrose 200 MG in sodium chloride 0.9% (100 ml) 100 ML 220 MG IV (14:30)
== END 2024-06-23 15:50 | disposition intermediate care facility (04) | DRG 698 ==
LOC: ICU 19:02 → MEDSURG 06-21 19:48
PROVIDERS: Student in an Organized Health Care Education/Training Program; Admitting Provider Internal Medicine; PCP Nurse Practitioner Family; Visit Provider Internal Medicine
DX: T83.511A Infection and inflammatory reaction due to indwelling urethral catheter, initial encounter (principal); A41.9 Sepsis, unspecified organism; I50.33 Acute on chronic diastolic (congestive) heart failure; R65.21 Severe sepsis with septic shock; L97.411 Non-pressure chronic ulcer of right heel and midfoot limited to breakdown of skin; N39.0 Urinary tract infection, site not specified; Y73.8 Miscellaneous gastroenterology and urology devices associated with adverse incidents, not elsewhere classified; I73.9 Peripheral vascular disease, unspecified; E78.2 Mixed hyperlipidemia; E11.51 Type 2 diabetes mellitus with diabetic peripheral angiopathy without gangrene; E11.621 Type 2 diabetes mellitus with foot ulcer; M06.9 Rheumatoid arthritis, unspecified; L89.620 Pressure ulcer of left heel, unstageable; L89.610 Pressure ulcer of right heel, unstageable; L89.151 Pressure ulcer of sacral region, stage 1; M51.16 Intervertebral disc disorders with radiculopathy, lumbar region; M47.896 Other spondylosis, lumbar region; R21 Rash and other nonspecific skin eruption; R53.81 Other malaise; D64.9 Anemia, unspecified; I72.8 Aneurysm of other specified arteries; I48.91 Unspecified atrial fibrillation; I95.9 Hypotension, unspecified; H54.62 Unqualified visual loss, left eye, normal vision right eye; I25.10 Atherosclerotic heart disease of native coronary artery without angina pectoris; F32.A Depression, unspecified; E03.9 Hypothyroidism, unspecified; F41.9 Anxiety disorder, unspecified; Z66 Do not resuscitate; H10.9 Unspecified conjunctivitis; Z95.828 Presence of other vascular implants and grafts; Z79.82 Long term (current) use of aspirin; Z79.01 Long term (current) use of anticoagulants; Z79.02 Long term (current) use of antithrombotics/antiplatelets; Z79.52 Long term (current) use of systemic steroids; Z79.4 Long term (current) use of insulin; Z74.01 Bed confinement status; Z87.891 Personal history of nicotine dependence; Z86.73 Personal history of transient ischemic attack (TIA), and cerebral infarction without residual deficits; Z58.89 Other problems related to physical environment
CPT/HCPCS: 36415; 36416; 36573; 36592; 51702; 51798; 70450; 71045; 71250; 74176; 80048; 80053; 80202; 81001; 82550; 82607; 82728; 82746; 82962; 83540; 83550; 83605; 83735; 83880; 84145; 84484; 85025; 86140; 87040; 87086; 87486; 87581; 87633; 92526; 92610; 93005; 96372; 96374; 96376; A4222; C1751; J0283; J0692; J1171; J1720; J1756; J1815; J1940; J2405; J2470; J2543; J3370; J3372; J7030; J7040; J7050; J7512; P9045; P9046